=== PATIENT | male | born 1950 | race Caucasian/White ===

== ENCOUNTER 2016-07-01 16:04 | Emergency (ER) | payer BC, MEDICARE ==
[2016-07-01] MEDS ORDERED: METHOCARBAMOL 500 MG TAB PO STA (16:53)
[2016-07-01] MEDS ORDERED: SODIUM CHLORIDE 0.9% 1,000 ML IV STA (16:55)
[2016-07-01 17:28] LABS: Basophils # (A) 0.1 k/uL (0-0.2); Basophils % (A) 1 %; CH 32.6; CHCM 33.2; Eosinophils # (A) 0.3 k/uL (0-0.7); Eosinophils % (A) 3 %; HCT 34.7 % (39.0-53.0); HDW 2.31; HGB 11.2 gm/dL (13.0-17.5); Luc # (Auto) 0.14; Luc % (Auto) 1; Lymphocytes # (A) 2.8 k/uL (1.0-4.8); Lymphocytes % (A) 27 %; MCH 31.9 pg (25.0-35.0); MCHC 32.2 g/dL (31.0-37.0); MCV 98.8 fL (80.0-100.0); Macrocytosis Slight; Mean Platelet Volume 6.7; Monocytes # (A) 0.4 k/uL (0-1.0); Monocytes % (A) 4 %; Neutrophils # (A) 6.6 k/uL (1.3-7.7); Neutrophils % (A) 65 %; RBC 3.51 m/uL (4.30-5.90); RDW 14.4 % (11.5-15.5); WBC 10.3 k/uL (3.8-10.6); WBC (Perox) 10.65
[2016-07-01 17:38] LABS: Appearance,Urine Clear (Clear); Bilirubin,Urine Negative (Negative); Glucose,Urine (UA) 4+ (Negative); Ketones,Urine Negative (Negative); Leukocyte Esterase,Urine Negative (Negative); Nitrite,Urine Negative (Negative); Protein,Urine Negative (Negative); Specific Gravity,Urine 1.016 (1.001-1.035); UA Billing (MACRO vs. MICRO) CHEM; Urobilinogen,Urine <2.0 mg/dL (<2.0)
--- NOTE | 2016-07-01 17:43 | XR ---
EXAMINATION TYPE: XR lumbar spine 3V DATE OF EXAM: 07/01/2016 5:30 PM COMPARISON: MRI September 30, 2012 HISTORY: Low back pain TECHNIQUE: AP coned view and 2 lateral coned views FINDINGS: There is unchanged anterior listhesis of L5 upon S1, with markedly advanced degenerative fa cet changes at the L4-5 and L5-S1. New since the time of the MRI is moderate compression of the superior endplate of L2. Bones and joints and soft tissues are otherwise unremarkable as seen. IMPRESSION: Moderate compression of the L2 superior endplate, age indeterminate other than new since the September 30, 2012 MRI.
[2016-07-01 17:52] LABS: Anion Gap 7 mmol/L; Blood Urea Nitrogen 23 mg/dL (9-20); Calcium 9.4 mg/dL (8.4-10.2); Carbon Dioxide 27 mmol/L (22-30); Chloride 99 mmol/L (98-107); Glucose 391 mg/dL (74-99); Magnesium 1.9 mg/dL (1.6-2.3); Non-African American GFR(MDRD) >60 (>60 ml/min/1.73 sqM); Potassium 4.7 mmol/L (3.5-5.1); Sodium 133 mmol/L (137-145)
[2016-07-01 18:38] LABS: Glucose,Whole Blood 345 mg/dL (75-99)
--- NOTE | 2016-07-01 19:30 | ED ---
General Adult HPI - General Chief complaint: Recheck/Abnormal Lab/Rx Stated complaint: HYPERGLYCEMIA Time Seen by Provider: 07/01/16 16:19 Source: EMS Mode of arrival: EMS Limitations: no limitations - History of Present Illness Initial comments: The patient is a 66-year-old male since ED with a chief complaint of fatigue and hyperglycemia. Patient also complains of chronic back pain. Patient states that he was recently admitted at [facility]. He was discharged approximately 4 days ago. Patient states that he was noted to have elevated glucose while at [facility]. They started him on insulin, which he states he's been taking as directed. Patient notes that he has had elevated blood glucose of 350 while at home. States he has been feeling more fatigued than usual over the course of the past 2 weeks. Patient notes that he has appointment with his PCP tomorrow morning. Patient has been taking pain medication at home for his back pain. States that he has not had any recent changes in his back pain. He has not had any recent traumatic injuries to his back. 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 Patient denies any recent changes to his medications. He denies any chest pain or shortness of breath. Patient denies any fevers or chills. Denies any dysuria or hematuria. - Related Data Home Medications Medication Instructions Recorded Confirmed Aspirin 325 mg PO DAILY 07/19/13 10/14/15 Glimepiride [Amaryl] 4 mg PO BID 07/19/13 10/14/15 Omeprazole [PriLOSEC] 20 mg PO AC-BRKFST PRN 07/19/13 10/14/15 sitaGLIPtin PHOS/metFORMIN HCL 1 tab PO BID 05/27/15 10/14/15 [Janumet 50-500 mg Tablet] Previous Rx's Medication Instructions Recorded Topiramate [Topamax] 25 mg PO BID #60 cap 10/14/15 oxyCODONE HCL 30 mg PO Q6HR PRN #120 tablet 10/14/15 Allergies Allergy/AdvReac Type Severity Reaction Status Date / Time No Known Allergies Allergy Verified 07/01/16 16:24 Review of Systems ROS Statement: Those systems with pertinent positive or pertinent negative responses have been documented in the HPI. ROS Other: All systems not noted in ROS Statement are negative. Constitutional: Denies: fever, chills, weakness Eyes: Denies: vision change ENT: Denies: ear pain, throat pain, dental pain Respiratory: Denies: cough, dyspnea, wheezes Cardiovascular: Denies: chest pain, palpitations Endocrine: Reports: fatigue Gastrointestinal: Denies: abdominal pain, nausea, vomiting, diarrhea, constipation Genitourinary: Denies: urgency, dysuria, frequency, hematuria Musculoskeletal: Reports: back pain (lumbar) Skin: Denies: rash, lesions, change in color Neurological: Denies: headache, weakness Psychiatric: Denies: anxiety, depression Past Medical History Past Medical History: Coronary Artery Disease (CAD), Diabetes Mellitus, Eye Disorder, GERD/Reflux, Hypertension, Musculoskeletal Disorder, Osteoarthritis ( OA) Additional Past Medical History / Comment(s): peripheral neuropathy,. spondilolithesis. disabled-moves slowly History of Any Multi-Drug Resistant Organisms: None Reported Past Surgical History: Heart Catheterization With Stent, Orthopedic Surgery, Tonsillectomy Additional Past Surgical History / Comment(s): lt knee surg. lt knee scope. [facility] PROCED[facility] Past Anesthesia/Blood Transfusion Reactions: No Reported Reaction Date of Last Stent Placement:: 2008 Past Psychological History: Anxiety, Depression Smoking Status: Never smoker Past Alcohol Use History: None Reported Past Drug Use History: None Reported - Past Family History Mother Family Medical History: Unable to Obtain General Exam Limitations: no limitations General appearance: alert, in no apparent distress Head exam: Present: atraumatic, normocephalic Eye exam: Present: normal appearance, PERRL, EOMI. Absent: scleral icterus, conjunctival injection Pupils: Present: normal accommodation, other (pupils are 3mm, equal and reactive. The patient wears glasses) ENT exam: Present: normal exam, mucous membranes dry Neck exam: Present: normal inspection Respiratory exam: Present: normal lung sounds bilaterally. Absent: respiratory distress, wheezes, rales, rhonchi, stridor Cardiovascular Exam: Present: regular rate, normal rhythm, normal heart sounds. Absent: systolic murmur, diastolic murmur GI/Abdominal exam: Present: soft. Absent: distended, tenderness, guarding, rebound, rigid Extremities exam: Present: normal inspection, full ROM. Absent: tenderness Back exam: Present: normal inspection, tenderness (tenderness to palpation in the lumbar region bilaterally. There is no tenderness to palpation of the spinous processes in the lumbar region. No step-offs) Neurological exam: Present: alert, oriented X3 Psychiatric exam: Present: normal affect, normal mood Skin exam: Present: warm, dry, intact Course Vital Signs 07/01/16 07/01/16 07/01/16 16:15 17:14 18:35 Temperature 100.1 F H 97.2 F L 98.0 F Pulse Rate 97 85 76 Respiratory 18 16 16 Rate Blood Pressure 119/69 106/66 102/68 O2 Sat by Pulse 97 96 96 Oximetry 07/01/16 19:54 Temperature 98.3 F Pulse Rate 88 Respiratory 20 Rate Blood Pressure 132/56 O2 Sat by Pulse 99 Oximetry EKG Findings - EKG Comments: EKG Findings:: EKG demonstrates NSR. There are no concerning ST-T changes. The DC and QRS intervals are within normal limits. Medical Decision Making - Medical Decision Making Patient is a 66-year-old male who presents ED with a chief complaint fatigue and hyperglycemia. Patient states that his symptoms of the present over the course the past 2 weeks. Patient denies any fever or chills. Denies any chest pain or shortness of breath. Patient denies any dysuria or hematuria. Patient does complain of lower back pain. Patient has a history of chronic lower back pain status post participation in college football. Will provide patient with oxycodone for pain relief. Will bolus patient with IV fluids. Check EKG, Troponin, CBC, BMP, Mag. 7:30 PM Patient updated of overall findings. Glucose noted to be 350 but patient has follow-up appointment with PCP tomorrow morning. Encouraged patient that he may need to have adjustment in insulin dosing. No evidence of DKA today. Patient has no evidence of ketones in his urine. In addition, no evidence of abnormal bicarb or anion gap. Patient will be discharged home at this point in time. He is comfortable with this plan. The patient did have evidence of compression fracture on his lumbar spine x-ray. According the patient, this is old and has been present for several years. Patient has pain medications that he can take at home for pain relief. I have answered all of his questions to his satisfaction. - Lab Data Result diagrams: 07/01/16 17:11 07/01/16 17:11 Lab Results 07/01/16 07/01/16 07/01/16 Range/Units 16:14 17:11 17:11 WBC (3.8-10.6) k/uL RBC (4.30-5.90) m/uL Hgb (13.0-17.5) gm/dL Hct (39.0-53.0) % MCV (80.0-100.0) fL MCH (25.0-35.0) pg MCHC (31.0-37.0) g/dL RDW (11.5-15.5) % Plt Count (150-450) k/uL Neutrophils % % Lymphocytes % % Monocytes % % Eosinophils % % Basophils % % Neutrophils # (1.3-7.7) k/uL Lymphocytes # (1.0-4.8) k/uL Monocytes # (0-1.0) k/uL Eosinophils # (0-0.7) k/uL Basophils # (0-0.2) k/uL Macrocytosis Sodium (137-145) mmol/L Potassium (3.5-5.1) mmol/L Chloride (98-107) mmol/L Carbon Dioxide (22-30) mmol/L Anion Gap mmol/L BUN (9-20) mg/dL Creatinine (0.66-1.25) mg/dL Est GFR (MDRD) Af Amer (>60 ml/min/1.73 sqM) Est GFR (MDRD) Non-Af (>60 ml/min/1.73 sqM) Glucose (74-99) mg/dL POC Glucose (mg/dL) 433 H (75-99) mg/dL POC Glu Pediatric Oncology Nurse ID Trista Cruz Plasma Lactic Acid Kareem 1.4 (0.7-2.0) mmol/L Calcium (8.4-10.2) mg/dL Magnesium (1.6-2.3) mg/dL Troponin I <0.012 (0.000-0.034) ng/mL Urine Color Urine Appearance (Clear) Urine pH (5.0-8.0) Ur Specific [place] (1.001-1.035) Urine Protein (Negative) Urine Glucose (UA) (Negative) Urine Ketones (Negative) Urine Blood (Negative) Urine Nitrite (Negative) Urine Bilirubin (Negative) Urine Urobilinogen (<2.0) mg/dL Ur Leukocyte Esterase (Negative) Influenza Type A RNA (Not Detectd) Influenza Type B (PCR) (Not Detectd) 07/01/16 07/01/16 07/01/16 Range/Units 17:11 17:11 17:11 WBC 10.3 (3.8-10.6) k/uL RBC 3.51 L (4.30-5.90) m/uL Hgb 11.2 L (13.0-17.5) gm/dL Hct 34.7 L (39.0-53.0) % MCV 98.8 (80.0-100.0) fL MCH 31.9 (25.0-35.0) pg MCHC 32.2 (31.0-37.0) g/dL RDW 14.4 (11.5-15.5) % Plt Count 306 (150-450) k/uL Neutrophils % 65 % Lymphocytes % 27 % Monocytes % 4 % Eosinophils % 3 % Basophils % 1 % Neutrophils # 6.6 (1.3-7.7) k/uL Lymphocytes # 2.8 (1.0-4.8) k/uL Monocytes # 0.4 (0-1.0) k/uL Eosinophils # 0.3 (0-0.7) k/uL Basophils # 0.1 (0-0.2) k/uL Macrocytosis Slight Sodium 133 L (137-145) mmol/L Potassium 4.7 (3.5-5.1) mmol/L Chloride 99 (98-107) mmol/L Carbon Dioxide 27 (22-30) mmol/L Anion Gap 7 mmol/L BUN 23 H (9-20) mg/dL Creatinine 0.70 (0.66-1.25) mg/dL Est GFR (MDRD) Af Amer >60 (>60 ml/min/1.73 sqM) Est GFR (MDRD) Non-Af >60 (>60 ml/min/1.73 sqM) Glucose 391 H (74-99) mg/dL POC Glucose (mg/dL) (75-99) mg/dL POC Glu Pediatric Oncology Nurse ID Plasma Lactic Acid Kareem (0.7-2.0) mmol/L Calcium 9.4 (8.4-10.2) mg/dL Magnesium 1.9 (1.6-2.3) mg/dL Troponin I (0.000-0.034) ng/mL Urine Color Urine Appearance (Clear) Urine pH (5.0-8.0) Ur Specific [place] (1.001-1.035) Urine Protein (Negative) Urine Glucose (UA) (Negative) Urine Ketones (Negative) Urine Blood (Negative) Urine Nitrite (Negative) Urine Bilirubin (Negative) Urine Urobilinogen (<2.0) mg/dL Ur Leukocyte Esterase (Negative) Influenza Type A RNA Not Detected (Not Detectd) Influenza Type B (PCR) Not Detected (Not Detectd) 07/01/16 07/01/16 Range/Units 17:11 18:33 WBC (3.8-10.6) k/uL RBC (4.30-5.90) m/uL Hgb (13.0-17.5) gm/dL Hct (39.0-53.0) % MCV (80.0-100.0) fL MCH (25.0-35.0) pg MCHC (31.0-37.0) g/dL RDW (11.5-15.5) % Plt Count (150-450) k/uL Neutrophils % % Lymphocytes % % Monocytes % % Eosinophils % % Basophils % % Neutrophils # (1.3-7.7) k/uL Lymphocytes # (1.0-4.8) k/uL Monocytes # (0-1.0) k/uL Eosinophils # (0-0.7) k/uL Basophils # (0-0.2) k/uL Macrocytosis Sodium (137-145) mmol/L Potassium (3.5-5.1) mmol/L Chloride (98-107) mmol/L Carbon Dioxide (22-30) mmol/L Anion Gap mmol/L BUN (9-20) mg/dL Creatinine (0.66-1.25) mg/dL Est GFR (MDRD) Af Amer (>60 ml/min/1.73 sqM) Est GFR (MDRD) Non-Af (>60 ml/min/1.73 sqM) Glucose (74-99) mg/dL POC Glucose (mg/dL) 345 H (75-99) mg/dL POC Glu Pediatric Oncology Nurse ID [place], Maria Del Rosario Plasma Lactic Acid Kareem (0.7-2.0) mmol/L Calcium (8.4-10.2) mg/dL Magnesium (1.6-2.3) mg/dL Troponin I (0.000-0.034) ng/mL Urine Color Light Yellow Urine Appearance Clear (Clear) Urine pH 7.0 (5.0-8.0) Ur Specific [place] 1.016 (1.001-1.035) Urine Protein Negative (Negative) Urine Glucose (UA) 4+ H (Negative) Urine Ketones Negative (Negative) Urine Blood Negative (Negative) Urine Nitrite Negative (Negative) Urine Bilirubin Negative (Negative) Urine Urobilinogen <2.0 (<2.0) mg/dL Ur Leukocyte Esterase Negative (Negative) Influenza Type A RNA (Not Detectd) Influenza Type B (PCR) (Not Detectd) Disposition Clinical Impression: Fatigue, Hyperglycemia, Type 2 diabetes mellitus Disposition: HOME SELF-CARE Condition: Good Instructions: Type 2 Diabetes in Adults (ED) Additional Instructions: Please follow up with your PCP for your appointment tomorrow. They can help to start you on insulin if they deem that this is necessary to control your blood glucose levels. Referrals: Louis Moreno MD [Primary Care Provider] - 1-2 days (Please follow up with Dr. Moreno tomorrow regarding your visit to the ED today. He can help to adjust your medications to help treat your hyperglycemia) Time of Disposition: 19:30
[2016-07-01 19:55] VITALS: BP 132/56; PULSE 88; RESP 20; TEMP 98.3
[2016-07-01 22:18] LABS: Glucose,Whole Blood 433 mg/dL (75-99)
== END 2016-07-01 19:55 | disposition home or self-care (01) ==
LOC: EC 16:04 → EEVIPCON 16:04 → EC 19:55
DX: E11.65 Type 2 diabetes mellitus with hyperglycemia (principal); R53.83 Other fatigue; M54.9 Dorsalgia, unspecified; G89.29 Other chronic pain; I25.10 Atherosclerotic heart disease of native coronary artery without angina pectoris; I10 Essential (primary) hypertension; Z79.82 Long term (current) use of aspirin; Z79.84 Long term (current) use of oral hypoglycemic drugs
CPT/HCPCS: 36415; 72100; 80048; 81003; 83605; 83735; 84484; 85025; 87040; 87086; 87502; 93005; 96360; 96361; 99285

== ENCOUNTER → 2017-03-16 | Outpatient (CLI) | payer MEDICARE | END | disposition home or self-care (01) | LOC: LABWHC1 09:06 | PROVIDERS: ATTEND Internal Medicine Endocrinology, Diabetes & Metabolism | DX: E11.65 Type 2 diabetes mellitus with hyperglycemia (principal) | CPT/HCPCS: 36415; 82947; 83519; 84681 ==

== ENCOUNTER → 2017-06-10 | Outpatient (CLI) | payer MEDICARE ==
[2017-06-10 11:25] LABS: ALT 18 U/L (21-72); AST 19 U/L (17-59); Albumin 3.9 g/dL (3.5-5.0); Alkaline Phosphatase 70 U/L (38-126); Anion Gap 12 mmol/L; Blood Urea Nitrogen 12 mg/dL (9-20); Calcium 9.5 mg/dL (8.4-10.2); Carbon Dioxide 24 mmol/L (22-30); Chloride 104 mmol/L (98-107); Cholesterol 206 mg/dL (<200); Glucose 112 mg/dL (74-99); HDL Cholesterol 40 mg/dL (40-60); LDL Cholesterol,Calculated 142 mg/dL (0-99); Potassium 4.1 mmol/L (3.5-5.1); Sodium 140 mmol/L (137-145); Total Bilirubin 0.5 mg/dL (0.2-1.3); Total Protein 6.6 g/dL (6.3-8.2); Triglycerides 122 mg/dL (<150)
[2017-06-10 17:29] LABS: Hemoglobin A1C 9.1 % (4.0-6.0)
== END ==
LOC: LABWHC1 10:34
PROVIDERS: ATTEND Internal Medicine Endocrinology, Diabetes & Metabolism
DX: E11.65 Type 2 diabetes mellitus with hyperglycemia (principal)
CPT/HCPCS: 36415; 80053; 80061; 82043; 82533; 82570; 82607; 83036; 84443

== ENCOUNTER → 2017-07-05 | Outpatient (CLI) | payer MEDICARE ==
[2017-07-05 20:21] LABS: Hemoglobin A1C 8.6 % (4.0-6.0)
--- NOTE | 2017-07-05 23:13 | MR ---
EXAMINATION TYPE: MR lumbar spine wo con DATE OF EXAM: 07/05/2017 COMPARISON: September 30, 2012 HISTORY: LBP, radiates down rt leg x 1 year TECHNIQUE: Multiplanar, multisequence images of the lumbar spine were acquired. There is bilateral L5 spondylolysis. There is a mild first-degree L5-S1 spondylolisthesis. There is n arrowing of disc spaces throughout the lumbar spine and more at L5-S1. There is slight anterior wedgi ng of L2 vertebra. There is depression of the superior endplate. There is mild posterior disc herniat ion at L1-L3 4 L5-S1. There is lateral recess stenosis and mild spinal stenosis at L4-5 due to facet arthropathy. I see no significant stenosis in the remainder of the lumbar spine. There is no paraspin al mass. I see no focal bone destruction. The visualized sacroiliac joints appear normal. IMPRESSION: Spondylolysis of L5 with first-degree L5-S1 spondylolisthesis. This is unchanged. There is slight inc rease in the posterior L5-S1 disc herniation compared to old exam. There is L4-5 spinal stenosis that appears less severe than old exam. There is a new mild compression fracture L2 compared to old exam. The posterior disc herniation at L4 -5 has diminished somewhat compared to old exam and consistent with desiccation.
== END | disposition home or self-care (01) ==
LOC: RADMRIMAIN 15:05 → EEVIPCON 16:45
PROVIDERS: ATTEND Family Medicine
DX: S32.029A Unspecified fracture of second lumbar vertebra, initial encounter for closed fracture (principal); M48.061 Spinal stenosis, lumbar region without neurogenic claudication; M43.17 Spondylolisthesis, lumbosacral region; M51.27 Other intervertebral disc displacement, lumbosacral region; E78.5 Hyperlipidemia, unspecified; E11.65 Type 2 diabetes mellitus with hyperglycemia; I10 Essential (primary) hypertension
CPT/HCPCS: 36415; 72148; 82306; 83036

== ENCOUNTER 2018-08-13 14:47 | Emergency (ER) | payer MEDICARE ==
[2018-08-13 15:03] VITALS: BP 102/66; PULSE 86; RESP 18; TEMP 98.7
--- NOTE | 2018-08-13 15:50 | ED ---
General Adult HPI - General Chief complaint: Recheck/Abnormal Lab/Rx Stated complaint: Med Refill Time Seen by Provider: 08/13/18 15:36 Source: patient, RN notes reviewed Mode of arrival: ambulatory Limitations: no limitations - History of Present Illness Initial comments: This is a 68-year-old male presents emergency Department with chief complaint of needing insulin. Patient states that he normally takes Lantus 40 units in the morning and he takes Humalog 5 units 3 times a day. Patient states that he ran out yesterday his blood sugar is mildly elevated today but denies any chest pain, shortness breath, fever, chills, nausea vomiting diarrhea constipation. - Related Data Home Medications Medication Instructions Recorded Confirmed Aspirin 325 mg PO DAILY 07/19/13 10/14/15 Glimepiride [Amaryl] 4 mg PO BID 07/19/13 10/14/15 Omeprazole [PriLOSEC] 20 mg PO AC-BRKFST PRN 07/19/13 10/14/15 sitaGLIPtin PHOS/metFORMIN HCL 1 tab PO BID 05/27/15 10/14/15 [Janumet 50-500 mg Tablet] Previous Rx's Medication Instructions Recorded Topiramate [Topamax] 25 mg PO BID #60 cap 10/14/15 oxyCODONE HCL [oxyCODONE HCL (IR)] 30 mg PO Q6HR PRN #120 tablet 10/14/15 Insulin Glargine,Hum.rec.anlog 40 unit SQ DAILY #15 ml 08/13/18 [Lantus Solostar] Insulin Lispro [humaLOG Kwikpen] 5 unit SQ AC-TID #5 insuln.pen 08/13/18 Allergies Allergy/AdvReac Type Severity Reaction Status Date / Time No Known Allergies Allergy Verified 08/13/18 15:03 Review of Systems ROS Statement: Those systems with pertinent positive or pertinent negative responses have been documented in the HPI. ROS Other: All systems not noted in ROS Statement are negative. Past Medical History Past Medical History: Coronary Artery Disease (CAD), Diabetes Mellitus, Eye Disorder, GERD/Reflux, Hypertension, Musculoskeletal Disorder, Osteoarthritis (OA) Additional Past Medical History / Comment(s): peripheral neuropathy,. spondilo lithesis. disabled-moves slowly History of Any Multi-Drug Resistant Organisms: None Reported Past Surgical History: Heart Catheterization With Stent, Orthopedic Surgery, Tonsillectomy Additional Past Surgical History / Comment(s): lt knee surg. lt knee scope. [facility] PROCED[facility] Past Anesthesia/Blood Transfusion Reactions: No Reported Reaction Date of Last Stent Placement:: 2008 Past Psychological History: Anxiety, Depression Smoking Status: Never smoker Past Alcohol Use History: None Reported Past Drug Use History: None Reported - Past Family History Mother Family Medical History: Unable to Obtain General Exam Limitations: no limitations General appearance: alert, in no apparent distress Head exam: Present: atraumatic, normocephalic, normal inspection Neck exam: Present: normal inspection. Absent: tenderness, meningismus, lymphadenopathy Respiratory exam: Present: normal lung sounds bilaterally. Absent: respiratory distress, wheezes, rales, rhonchi, stridor Cardiovascular Exam: Present: regular rate, normal rhythm, normal heart sounds. Absent: systolic murmur, diastolic murmur, rubs, gallop, clicks Neurological exam: Present: alert, oriented X3, CN II-XII intact, reflexes normal. Absent: motor sensory deficit Skin exam: Present: warm, dry, intact, normal color. Absent: rash Course Vital Signs 08/13/18 15:01 Temperature 98.7 F Pulse Rate 86 Respiratory 18 Rate Blood Pressure 102/66 O2 Sat by Pulse 99 Oximetry Medical Decision Making - Medical Decision Making 68-year-old male presented for medication refill. Patient Accu-Chek was performed. Patient was given insulin. Patient was given prescriptions to his pharmacy. Disposition Clinical Impression: Encounter for medication refill, Diabetes Disposition: HOME SELF-CARE Condition: Stable Instructions (If sedation given, give patient instructions): Type 2 Diabetes in the Older Adult (ED) Additional Instructions: Please return to the Emergency Department if symptoms worsen or any other concerns. Prescriptions: Insulin Lispro [humaLOG Kwikpen] 5 unit SQ AC-TID #5 insuln.pen Insulin Glargine,Hum.rec.anlog [Lantus Solostar] 40 unit SQ DAILY #15 ml Is patient prescribed a controlled substance at d/c from ED?: No Referrals: Florence Aguirre MD [Primary Care Provider] - 1-2 days
[2018-08-13] MEDS ORDERED: INSULIN ASPART (NovoLOG) 100 UNIT/ML VIAL SQ ONE (16:02)
[2018-08-13 16:22] LABS: Glucose,Whole Blood 278 mg/dL (75-99)
== END 2018-08-13 16:26 | disposition home or self-care (01) ==
LOC: EC 14:47
DX: Z76.0 Encounter for issue of repeat prescription (principal); E11.40 Type 2 diabetes mellitus with diabetic neuropathy, unspecified; I25.10 Atherosclerotic heart disease of native coronary artery without angina pectoris; K21.9 Gastro-esophageal reflux disease without esophagitis; I10 Essential (primary) hypertension; Z79.82 Long term (current) use of aspirin; Z79.84 Long term (current) use of oral hypoglycemic drugs; Z79.899 Other long term (current) drug therapy; Z95.5 Presence of coronary angioplasty implant and graft
CPT/HCPCS: 36415; 99281

== ENCOUNTER 2020-05-22 19:35 | Inpatient (IN) | payer MEDICARE ==
[2020-05-22] MEDS ORDERED: cefTRIAXone IN SWFI 1,000 MG/10 ML SYRINGE IVP STA (21:09)
[2020-05-22] MEDS ORDERED: VANCOMYCIN IV PER PHARMACY 1 EACH MISC MISCELLANE PRN (21:09)
[2020-05-22] MEDS ORDERED: SODIUM CHLORIDE 0.9% 1,000 ML IV ONE (21:21)
--- NOTE | 2020-05-22 21:36 | ED ---
General Adult HPI - General Chief complaint: Skin/Abscess/Foreign Body Stated complaint: left foot infection Time Seen by Provider: 05/22/20 20:57 Source: patient, EMS, RN notes reviewed, old records reviewed Mode of arrival: wheelchair Limitations: no limitations - History of Present Illness Initial comments: 70-year-old male presenting for evaluation of pain and swelling in the left foot. Patient denies injury. He reports significant pain. Denies fever. He is a diabetic. He states he is a nonsmoker. He denies any drainage or skin breakdown. He states that his foot has felt warm and the redness has begun to spread into his leg. - Related Data Home Medications Medication Instructions Recorded Confirmed Aspirin 325 mg PO DAILY 07/19/13 10/14/15 Glimepiride [Amaryl] 4 mg PO BID 07/19/13 10/14/15 Omeprazole [PriLOSEC] 20 mg PO AC-BRKFST PRN 07/19/13 10/14/15 sitaGLIPtin PHOS/metFORMIN HCL 1 tab PO BID 05/27/15 10/14/15 [Janumet 50-500 mg Tablet] Previous Rx's Medication Instructions Recorded Topiramate [Topamax] 25 mg PO BID #60 cap 10/14/15 oxyCODONE HCL [oxyCODONE HCL (IR)] 30 mg PO Q6HR PRN #120 tablet 10/14/15 Insulin Glargine,Hum.rec.anlog 40 unit SQ DAILY #15 ml 08/13/18 [Lantus Solostar] Insulin Lispro [humaLOG Kwikpen] 5 unit SQ AC-TID #5 insuln.pen 08/13/18 Allergies Allergy/AdvReac Type Severity Reaction Status Date / Time No Known Allergies Allergy Verified 05/22/20 20:37 Review of Systems ROS Statement: Those systems with pertinent positive or pertinent negative responses have been documented in the HPI. ROS Other: All systems not noted in ROS Statement are negative. Past Medical History Past Medical History: Coronary Artery Disease (CAD), Diabetes Mellitus, Eye Disorder, GERD/Reflux, Hypertension, Musculoskeletal Disorder, Osteoarthritis (OA) Additional Past Medical History / Comment(s): peripheral neuropathy,. spondilolithesis. disabled-moves slowly History of Any Multi-Drug Resistant Organisms: None Reported Past Surgical History: Heart Catheterization With Stent, Orthopedic Surgery, Ton sillectomy Additional Past Surgical History / Comment(s): lt knee surg. lt knee scope. [facility] Past Anesthesia/Blood Transfusion Reactions: No Reported Reaction Date of Last Stent Placement:: 2008 Past Psychological History: Anxiety, Depression Smoking Status: Former smoker Past Alcohol Use History: None Reported Past Drug Use History: None Reported - Past Family History Mother Family Medical History: Unable to Obtain General Exam Limitations: no limitations General appearance: alert, in no apparent distress Head exam: Present: atraumatic, normocephalic Eye exam: Present: normal appearance, PERRL ENT exam: Present: normal exam Neck exam: Present: normal inspection. Absent: tenderness, meningismus Respiratory exam: Present: normal lung sounds bilaterally. Absent: respiratory distress, wheezes Cardiovascular Exam: Present: regular rate, normal rhythm GI/Abdominal exam: Present: soft. Absent: distended, tenderness, guarding, rebound Extremities exam: Present: pedal edema (Patient has erythema which is most prominent in the toes of the left foot and midfoot. There is some erythema streaking up the leg. There is soft tissue swelling. There is no crepitus. This is tender to palpation. No fluctuance, no induration. Patient has 2+ femoral pulse on the left, ), other (Doppler signals DP and PT, very faint.) Back exam: Present: normal inspection Neurological exam: Present: alert, oriented X3 Psychiatric exam: Present: normal affect, normal mood Skin exam: Present: warm, dry, intact, erythema Course Vital Signs 05/22/20 05/22/20 20:35 22:08 Temperature 98.3 F Pulse Rate 83 71 Respiratory 20 18 Rate Blood Pressure 88/52 81/50 O2 Sat by Pulse 94 L 92 L Oximetry Medical Decision Making - Medical Decision Making 70-year-old male with history diabetes presenting with 2 weeks of pain and swelling in the left foot. This is erythematous tracking into the leg. There is no fluctuation, no induration. There is generalized soft tissue swelling and erythema with discoloration of all 5 digits. No obvious skin breakdown. X-ray performed showing a foreign body between the third and fourth digits however the patient does not recall stepping on anything. Denies recent injury. Denies IV drug abuse. There is no obvious entry point for this foreign body. Laboratory studies reveal a normal CBC, CMP showing elevated blood glucose of 430, no signs of DKA, normal lactic acid. Patient started on broad-spectrum antibiotics given IV fluids and IV insulin. He has been admitted to Dr. Castillo who is aware of the patient, vascular surgery is placed on consult. - Lab Data Result diagrams: 05/22/20 21:45 05/22/20 21:45 Lab Results 05/22/20 05/22/20 05/22/20 Range/Units 21:45 21:45 21:45 WBC 10.6 (3.8-10.6) k/uL RBC 4.70 (4.30-5.90) m/uL Hgb 14.6 (13.0-17.5) gm/dL Hct 42.2 (39.0-53.0) % MCV 90.0 (80.0-100.0) fL MCH 31.2 (25.0-35.0) pg MCHC 34.6 (31.0-37.0) g/dL RDW 13.5 (11.5-15.5) % Plt Count 278 (150-450) k/uL MPV 8.7 Neutrophils % 60 % Lymphocytes % 30 % Monocytes % 4 % Eosinophils % 4 % Basophils % 1 % Neutrophils # 6.4 (1.3-7.7) k/uL Lymphocytes # 3.1 (1.0-4.8) k/uL Monocytes # 0.4 (0-1.0) k/uL Eosinophils # 0.4 (0-0.7) k/uL Basophils # 0.1 (0-0.2) k/uL Sodium 130 L (137-145) mmol/L Potassium 4.5 (3.5-5.1) mmol/L Chloride 99 (98-107) mmol/L Carbon Dioxide 21 L (22-30) mmol/L Anion Gap 10 mmol/L BUN 12 (9-20) mg/dL Creatinine 0.56 L (0.66-1.25) mg/dL Est GFR (CKD-EPI)AfAm >90 (>60 ml/min/1.73 sqM) Est GFR (CKD-EPI)NonAf >90 (>60 ml/min/1.73 sqM) Glucose 437 H (74-99) mg/dL Plasma Lactic Acid Kareem 1.6 (0.7-2.0) mmol/L Calcium 9.2 (8.4-10.2) mg/dL Magnesium 2.2 (1.6-2.3) mg/dL Total Bilirubin 0.6 (0.2-1.3) mg/dL AST 22 (17-59) U/L ALT 16 (4-49) U/L Alkaline Phosphatase 184 H (38-126) U/L Total Protein 6.4 (6.3-8.2) g/dL Albumin 3.7 (3.5-5.0) g/dL Disposition Clinical Impression: Cellulitis, PVD (peripheral vascular disease) Disposition: [facility] Condition: Stable Is patient prescribed a controlled substance at d/c from ED?: No Referrals: Evangelina Galeas MD [Primary Care Provider] - 1-2 days Decision to Admit Reason: Admit from EC Decision Date: 05/22/20 Decision Time: 22:27
[2020-05-22] MEDS ORDERED: VANCOMYCIN 2,000 MG in SODIUM CHLORIDE 0.9% 500 ML 500 ML IVPB ONE (21:45)
--- NOTE | 2020-05-22 21:46 | XR ---
Result: History: Pain. Comparison: None available. Technique: 3 views of the left foot. Findings: The bone mineralization is appropriate for age. No acute fracture or dislocation is seen. The visualized osseous structures are in anatomic alignmen t. The joint spaces are preserved. There is a 4 mm linear radiopaque foreign body overlying the sof t tissues between the third and fourth distal phalanges. No soft tissue gas or radiographic evidence for osteomyelitis. Impression: No acute osseous abnormality. 4 mm radiopaque foreign body between the third and fourth toes and suggestive of retained syringe nee dle.
[2020-05-22 22:11] LABS: Basophils # (A) 0.1 k/uL (0-0.2); Basophils % (A) 1 %; Eosinophils # (A) 0.4 k/uL (0-0.7); Eosinophils % (A) 4 %; HCT 42.2 % (39.0-53.0); HGB 14.6 gm/dL (13.0-17.5); Lymphocytes # (A) 3.1 k/uL (1.0-4.8); Lymphocytes % (A) 30 %; MCH 31.2 pg (25.0-35.0); MCHC 34.6 g/dL (31.0-37.0); Mean Platelet Volume 8.7; Monocytes # (A) 0.4 k/uL (0-1.0); Monocytes % (A) 4 %; Neutrophils # (A) 6.4 k/uL (1.3-7.7); Neutrophils % (A) 60 %; Platelet Count 278 k/uL (150-450); RDW 13.5 % (11.5-15.5); WBC 10.6 k/uL (3.8-10.6)
[2020-05-22 22:21] LABS: ALT 16 U/L (4-49); AST 22 U/L (17-59); African American GFR (CKD) >90 (>60 ml/min/1.73 sqM); Albumin 3.7 g/dL (3.5-5.0); Alkaline Phosphatase 184 U/L (38-126); Anion Gap 10 mmol/L; Blood Urea Nitrogen 12 mg/dL (9-20); Calcium 9.2 mg/dL (8.4-10.2); Carbon Dioxide 21 mmol/L (22-30); Chloride 99 mmol/L (98-107); Glucose 437 mg/dL (74-99); Magnesium 2.2 mg/dL (1.6-2.3); Non-African American GFR(CKD) >90 (>60 ml/min/1.73 sqM); Potassium 4.5 mmol/L (3.5-5.1); Sodium 130 mmol/L (137-145); Total Bilirubin 0.6 mg/dL (0.2-1.3); Total Protein 6.4 g/dL (6.3-8.2)
[2020-05-22] MEDS ORDERED: INSULIN REGULAR 100 UNIT/ML VIAL IV ONE (22:22)
[2020-05-22] MEDS ORDERED: NALOXONE 0.4 MG/ML 1 ML VIAL IV PRN (22:23)
[2020-05-22] MEDS ORDERED: HYDROmorphone 0.5 MG/0.5 ML SYRINGE IVP PRN (22:23)
[2020-05-22 22:35] LABS: INR 0.9 (<1.2); Partial Thromboplastin Time 21.9 sec (22.0-30.0); Prothrombin Time 9.7 sec (9.0-12.0)
[2020-05-22 23:32] LABS: Glucose,Whole Blood 551 mg/dL (75-99)
[2020-05-22] MEDS: ACETAMINOPHEN TAB 325 MG TAB PO PRN (23:39)
[2020-05-22] MEDS: SODIUM CHLORIDE 0.9% 1,000 ML IV SCH ×2 (23:40→23:44)
[2020-05-23 02:04] LABS: Glucose,Whole Blood 544 mg/dL (75-99)
[2020-05-23] MEDS ORDERED: INSULIN REGULAR BOLUS (FROM DRIP BAG) IV ONE (02:11)
[2020-05-23 02:49] LABS: Glucose,Whole Blood 419 mg/dL (75-99)
[2020-05-23] MEDS: INSULIN REGULAR 100 UNIT in SODIUM CHLORIDE 0.9% 100 ML IV SCH ×2 (02:57→16:18)
[2020-05-23 03:32] LABS: Glucose,Whole Blood 340 mg/dL (75-99)
[2020-05-23 04:02] LABS: Glucose,Whole Blood 299 mg/dL (75-99)
[2020-05-23 04:36] LABS: Glucose,Whole Blood 249 mg/dL (75-99)
[2020-05-23 05:32] LABS: Glucose,Whole Blood 284 mg/dL (75-99)
[2020-05-23] MEDS: VANCOMYCIN 1,500 MG in SODIUM CHLORIDE 0.9% 250 ML IVPB SCH ×3 (05:37→22:30)
[2020-05-23] MEDS: ACETAMINOPHEN TAB 325 MG TAB PO PRN (06:00)
[2020-05-23 06:09] LABS: Glucose,Whole Blood 161 mg/dL (75-99)
[2020-05-23 07:23] LABS: Glucose,Whole Blood 122 mg/dL (75-99)
[2020-05-23 08:55] LABS: Glucose,Whole Blood 174 mg/dL (75-99)
--- NOTE | 2020-05-23 09:05 | P.GSCN ---
History of Present Illness Consult date: 05/23/20 Reason for Consult: Cellulitis, history of peripheral vascular disease History of present illness: This is a pleasant 70-year-old male patient who presented to the emergency department yesterday with complaints of pain and swelling in his left foot. He does not recall any injury to the foot. He denies any fever or chills. His past medical history includes insulin dependent diabetes, peripheral neuropathy, coronary artery disease and hypertension. Upon evaluation in the emergency department an x-ray of the left foot was obtained which showed no acute osseous abnormality. There is a 4 mm radiopaque foreign body between the third and fourth toes and suggestive of retained syringe needle. The patient states the pain and redness began approximately 2 days ago. He states he does not recall stepping on anything. He also states he has pain in his left calf that started approximately 2 months ago. He states that it hurts more when walking. He denies any previous history of peripheral vascular or peripheral arterial disease. He does state that his neuropathy is worse on his right foot than left. Eyes any shortness of breath, chest pain, or abdominal pain. Denies any nausea or vomiting. States he has pain in his lower extremities with walking and is to rest 20-30 minutes before proceeding. Review of Systems A 14 point review systems was completed all pertinent positives and negatives as stated in the HPI Past Medical History Past Medical History: Coronary Artery Disease (CAD), Diabetes Mellitus, Eye Disorder, GERD/Reflux, Hypertension, Musculoskeletal Disorder, Osteoarthritis (OA) Additional Past Medical History / Comment(s): peripheral neuropathy,. spondilolithesis. disabled-moves slowly History of Any Multi-Drug Resistant Organisms: None Reported Past Surgical History: Heart Catheterization With Stent, Orthopedic Surgery, Tonsillectomy Additional Past Surgical History / Comment(s): lt knee surg. lt knee scope. [facility] PROCEDURES Past Anesthesia/Blood Transfusion Reactions: No Reported Reaction Date of Last Stent Placement:: 2008 Past Psychological History: Anxiety, Depression Smoking Status: Former smoker Past Alcohol Use History: None Reported Past Drug Use History: None Reported - Past Family History Mother Family Medical History: Unable to Obtain Medications and Allergies Home Medications Medication Instructions Recorded Confirmed Type Enalapril [Vasotec] 10 mg PO HS 05/22/20 05/22/20 History Insulin Glargine,Hum.rec.anlog 40 unit SQ BID 05/22/20 05/22/20 History [Lantus Solostar] Insulin Lispro [humaLOG Kwikpen] 6 unit SQ AC-TID 05/22/20 05/22/20 History Allergies Allergy/AdvReac Type Severity Reaction Status Date / Time No Known Allergies Allergy Verified 05/22/20 22:40 Surgical - Exam Vital Signs Temp Pulse Resp BP Pulse Ox 98.3 F 83 20 88/52 94 L 05/22/20 20:35 05/22/20 20:35 05/22/20 20:35 05/22/20 20:35 05/22/20 20:35 General appearance: The patient is alert, oriented, in no acute distress. HET: Head is normocephalic and atraumatic. Neck: Supple without lymphadenopathy. Trachea midline. Heart: S1 S2. Regular rate and rhythm. Lungs: No crackles or wheezes are heard. Abdomen: Soft, nontender, nondistended. Extremities: Palpable bilateral femoral pulses. Unable to palpate bilateral gluteal, posterior tibialis or dorsalis pedis pulses. Bilateral popliteal with positive Doppler signal, unable to obtain Doppler signal for dorsalis pedis or posterior tibialis bilaterally. Left calf tender to palpation. Lower extrem ities warm to touch. Left dorsal aspect of foot with erythema down to the toes. Patient has multiple views of cracked skin in his heel left foot. Toes do feel cool to the touch. He is able to move bilateral lower extremities, although he complaints of pain to the left toes with movement. Neurological: No focal deficits. Strength and sensation are grossly intact. Results - Labs 05/22/20 21:45 05/23/20 08:07 Abnormal Lab Results - Last 24 Hours (Table) 05/22/20 05/22/20 05/22/20 Range/Units 21:45 21:45 23:28 APTT 21.9 L (22.0-30.0) sec Sodium 130 L (137-145) mmol/L Carbon Dioxide 21 L (22-30) mmol/L Creatinine 0.56 L (0.66-1.25) mg/dL Glucose 437 H (74-99) mg/dL POC Glucose (mg/dL) 551 H (75-99) mg/dL Alkaline Phosphatase 184 H (38-126) U/L 05/23/20 05/23/20 05/23/20 Range/Units 02:02 02:48 03:31 APTT (22.0-30.0) sec Sodium (137-145) mmol/L Carbon Dioxide (22-30) mmol/L Creatinine (0.66-1.25) mg/dL Glucose (74-99) mg/dL POC Glucose (mg/dL) 544 H 419 H 340 H (75-99) mg/dL Alkaline Phosphatase (38-126) U/L 05/23/20 05/23/20 05/23/20 Range/Units 04:00 04:35 05:31 APTT (22.0-30.0) sec Sodium (137-145) mmol/L Carbon Dioxide (22-30) mmol/L Creatinine (0.66-1.25) mg/dL Glucose (74-99) mg/dL POC Glucose (mg/dL) 299 H 249 H 284 H (75-99) mg/dL Alkaline Phosphatase (38-126) U/L 05/23/20 05/23/20 Range/Units 06:08 07:22 APTT (22.0-30.0) sec Sodium (137-145) mmol/L Carbon Dioxide (22-30) mmol/L Creatinine (0.66-1.25) mg/dL Glucose (74-99) mg/dL POC Glucose (mg/dL) 161 H 122 H (75-99) mg/dL Alkaline Phosphatase (38-126) U/L Diabetes panel 05/22/20 Range/Units 21:45 Sodium 130 L (137-145) mmol/L Potassium 4.5 (3.5-5.1) mmol/L Chloride 99 (98-107) mmol/L Carbon Dioxide 21 L (22-30) mmol/L BUN 12 (9-20) mg/dL Creatinine 0.56 L (0.66-1.25) mg/dL Glucose 437 H (74-99) mg/dL Calcium 9.2 (8.4-10.2) mg/dL AST 22 (17-59) U/L ALT 16 (4-49) U/L Alkaline Phosphatase 184 H (38-126) U/L Total Protein 6.4 (6.3-8.2) g/dL Albumin 3.7 (3.5-5.0) g/dL Calcium panel 05/22/20 Range/Units 21:45 Calcium 9.2 (8.4-10.2) mg/dL Albumin 3.7 (3.5-5.0) g/dL Pituitary panel 05/22/20 Range/Units 21:45 Sodium 130 L (137-145) mmol/L Potassium 4.5 (3.5-5.1) mmol/L Chloride 99 (98-107) mmol/L Carbon Dioxide 21 L (22-30) mmol/L BUN 12 (9-20) mg/dL Creatinine 0.56 L (0.66-1.25) mg/dL Glucose 437 H (74-99) mg/dL Calcium 9.2 (8.4-10.2) mg/dL Adrenal panel 05/22/20 Range/Units 21:45 Sodium 130 L (137-145) mmol/L Potassium 4.5 (3.5-5.1) mmol/L Chloride 99 (98-107) mmol/L Carbon Dioxide 21 L (22-30) mmol/L BUN 12 (9-20) mg/dL Creatinine 0.56 L (0.66-1.25) mg/dL Glucose 437 H (74-99) mg/dL Calcium 9.2 (8.4-10.2) mg/dL Total Bilirubin 0.6 (0.2-1.3) mg/dL AST 22 (17-59) U/L ALT 16 (4-49) U/L Alkaline Phosphatase 184 H (38-126) U/L Total Protein 6.4 (6.3-8.2) g/dL Albumin 3.7 (3.5-5.0) g/dL - Imaging Comments: X-ray left foot: No acute osseous abnormality. 4 mm radiopaque foreign body between the third and fourth toes and suggestive of retained syringe needle Assessment and Plan Assessment: 1. Cellulitis of the left foot 2. Claudication 3. Retained foreign body between the third and fourth toes of the left foot per X-RAY report 4. History of insulin dependent diabetes mellitus 5. History of coronary artery disease 6. History of peripheral neuropathy 7. History of hypertension Plan: 1. Supportive care 2. Antibiotics per recommendations from infectious disease 3. Will order Doppler ultrasound of left lower extremity 4. Will order Arterial Doppler US B/L lower extremities 4. Patient will be scheduled for abdominal aortogram with runoff tomorrow 5. Patient may have consistent carbohydrate diet, nothing by mouth after midnig ht Thank you for this consultation and allowing us take part in the plan of care of your patient during his hospital stay The impression and plan of care has been dictated as directed. I performed a history and examination of this patient, discussed the same with the dictator. I agree with the dictator's note ,documented as a scribe. Any additional findings or plans will be noted.
[2020-05-23 09:32] LABS: Glucose,Whole Blood 228 mg/dL (75-99)
[2020-05-23 10:39] LABS: Glucose,Whole Blood 269 mg/dL (75-99)
[2020-05-23 11:32] LABS: Glucose,Whole Blood 179 mg/dL (75-99)
--- NOTE | 2020-05-23 11:39 | P.HPIM ---
History of Present Illness this is a pleasant 70 years old male with past medical history of coronary artery disease status post stent, diabetes mellitus, hypertension, osteoarthritis, GERD, peripheral neuropathy and spondylolisthesis. this patient of Dr. Gibbs.Presents because of left foot pain and reddish discoloration for 2 weeks, he thinks that elevating the foot helps him however patient has pain at rest and on walking. He has redness on his left toes and forefoot and his foot feels cold and painful 10/10. Patient denies chest pain or dyspnea or fever. No change in urine or bowel habits. he denies smoking, alcohol or illicit drugs vitals are stable. Blood pressure is low normal at 86/52. basic metabolic panel showing mild hyponatremia at 1:30, creatinine normal at 0.5liver enzymes are not elevated. Glucose is slightly elevated at 340-419. coronavirus not detected Foot x-ray showing no acute osseous abnormality. 4 mm radiopaque foreign body between the third and fourth toes suggestive of retained needle foreign body currently patient was started on ceftriaxone and IV vancomycin. He is also on normal saline at 1 30 mL/h Review of Systems CONSTITUTIONAL: No fever, no malaise, no fatigue. HEENT: No recent visual problems or hearing problems. Denied any sore throat. CARDIOVASCULAR: No orthopnea, PND, no palpitations, no syncope. PULMONARY: No shortness of breath, no cough, no hemoptysis. GASTROINTESTINAL: No diarrhea, no nausea, no vomiting, no abdominal pain. Normoactive bowel sounds. NEUROLOGICAL: No headaches, no weakness, no numbness. HEMATOLOGICAL: Denies any bleeding or petechiae. GENITOURINARY: Denies any burning micturition, frequency, or urgency. MUSCULOSKELETAL/RHEUMATOLOGICAL: Denies any joint pain, swelling, or any muscle pain. ENDOCRINE: Denies any polyuria or polydipsia. Past Medical History Past Medical History: Coronary Artery Disease (CAD), Diabetes Mellitus, Eye Disorder, GERD/Reflux, Hypertension, Musculoskeletal Disorder, Osteoarthritis (OA) Additional Past Medical History / Comment(s): peripheral neuropathy,. spondilolithesis. disabled-moves slowly History of Any Multi-Drug Resistant Organisms: None Reported Past Surgical History: Heart Catheterization With Stent, Orthopedic Surgery, Tonsillectomy Additional Past Surgical History / Comment(s): lt knee surg. lt knee scope. [facility] PROCEDURES Past Anesthesia/Blood Transfusion Reactions: No Reported Reaction Date of Last Stent Placement:: 2008 Past Psychological History: Anxiety, Depression Smoking Status: Former smoker Past Alcohol Use History: None Reported Past Drug Use History: None Reported - Past Family History Mother Family Medical History: Unable to Obtain Medications and Allergies Home Medications Medication Instructions Recorded Confirmed Type Enalapril [Vasotec] 10 mg PO HS 05/22/20 05/22/20 History Insulin Glargine,Hum.rec.anlog 40 unit SQ BID 05/22/20 05/22/20 History [Lantus Solostar] Insulin Lispro [humaLOG Kwikpen] 6 unit SQ AC-TID 05/22/20 05/22/20 History Allergies Allergy/AdvReac Type Severity Reaction Status Date / Time No Known Allergies Allergy Verified 05/22/20 22:40 Physical Exam Vitals: Vital Signs Temp Pulse Pulse Resp BP BP Pulse Ox 05/23/20 05:52 78 86/52 05/23/20 03:48 101/63 05/23/20 03:41 70/39 05/23/20 03:36 71/36 05/23/20 02:07 98.1 F 76 16 87/65 97 05/23/20 01:00 68 18 99/77 96 05/23/20 00:00 65 18 101/74 96 05/22/20 23:29 74 18 90/65 95 05/22/20 22:08 71 18 81/50 92 L 05/22/20 20:35 98.3 F 83 20 88/52 94 L Intake and Output 05/22/20 05/23/20 05/23/20 22:59 06:59 14:59 Intake Total 51.594 10.958 Balance 51.594 10.958 Intake: Intake, IV Titration 51.594 10.958 Amount Insulin Regular 100 unit 51.594 10.958 In Sodium Chloride 0.9% 100 ml @ Titrate IV [facility] Rx#:[id number] Other: # Voids 1 Weight 97.522 kg 97.522 kg GENERAL: The patient is alert and oriented x3, not in any acute distress. Well developed, well nourished. HEENT: Pupils are round and equally reacting to light. EOMI. No scleral icterus. No conjunctival pallor. Normocephalic, atraumatic. No pharyngeal erythema. No thyromegaly. CARDIOVASCULAR: S1 and S2 present. No murmurs, rubs, or gallops. PULMONARY: Chest is clear to auscultation, no wheezing or crackles. ABDOMEN: Soft, nontender, nondistended, normoactive bowel sounds. No palpable organomegaly. MUSCULOSKELETAL: No joint swelling or deformity. -EXTREMITIES: No cyanosis, clubbing, or pedal edema. Left foot is cold, with redness on the left toe and forefoot and pain tenderness NEUROLOGICAL: Gross neurological examination did not reveal any focal deficits. SKIN: No rashes. No petechiae Results CBC & Chem 7: 05/22/20 21:45 05/22/20 21:45 Labs: Abnormal Lab Results - Last 24 Hours (Table) 05/22/20 05/22/20 05/22/20 Range/Units 21:45 21:45 23:28 APTT 21.9 L (22.0-30.0) sec Sodium 130 L (137-145) mmol/L Carbon Dioxide 21 L (22-30) mmol/L Creatinine 0.56 L (0.66-1.25) mg/dL Glucose 437 H (74-99) mg/dL POC Glucose (mg/dL) 551 H (75-99) mg/dL Alkaline Phosphatase 184 H (38-126) U/L 05/23/20 05/23/20 05/23/20 Range/Units 02:02 02:48 03:31 APTT (22.0-30.0) sec Sodium (137-145) mmol/L Carbon Dioxide (22-30) mmol/L Creatinine (0.66-1.25) mg/dL Glucose (74-99) mg/dL POC Glucose (mg/dL) 544 H 419 H 340 H (75-99) mg/dL Alkaline Phosphatase (38-126) U/L 05/23/20 05/23/20 05/23/20 Range/Units 04:00 04:35 05:31 APTT (22.0-30.0) sec Sodium (137-145) mmol/L Carbon Dioxide (22-30) mmol/L Creatinine (0.66-1.25) mg/dL Glucose (74-99) mg/dL POC Glucose (mg/dL) 299 H 249 H 284 H (75-99) mg/dL Alkaline Phosphatase (38-126) U/L 05/23/20 05/23/20 05/23/20 Range/Units 06:08 07:22 08:53 APTT (22.0-30.0) sec Sodium (137-145) mmol/L Carbon Dioxide (22-30) mmol/L Creatinine (0.66-1.25) mg/dL Glucose (74-99) mg/dL POC Glucose (mg/dL) 161 H 122 H 174 H (75-99) mg/dL Alkaline Phosphatase (38-126) U/L 05/23/20 05/23/20 Range/Units 09:29 10:37 APTT (22.0-30.0) sec Sodium (137-145) mmol/L Carbon Dioxide (22-30) mmol/L Creatinine (0.66-1.25) mg/dL Glucose (74-99) mg/dL POC Glucose (mg/dL) 228 H 269 H (75-99) mg/dL Alkaline Phosphatase (38-126) U/L Assessment and Plan Assessment: left foot cellulitis, with x-ray showing 4 m radiopaque foreign body between the third and fourth toes, possible needle Rule out ischemia of the left foot Hypertension, currently patient is hypotensive Diabetes mellitus Osteoarthritis Peripheral neuropathy History of coronary artery disease status post stent placement Plan: this is a pleasant 70 years old malepresents with left foot cellulitis, foreign body and possible ischemia.continue with antibiotics as per ID team recommendation. Continue with IV hydration.follow-up blood culture vascular surgery team on the case and they recommended ultrasound and Doppler of the left lower extremity. Labs and medication were reviewed.. Continue same treatment. Continue with symptomatic treatment. Resume home medication. Monitor lytes and vitals. DVT and GI prophylaxis. Further recommendations depends on the clinical course of the patient DVT prophylaxis: Subcutaneous heparin GI Prophylaxis: Pepcid PT/OT: Pending Prognosis is guarded
[2020-05-23 11:47] LABS: African American GFR (CKD) 119.7 (60.0-200.0); Non-African American GFR(CKD) 103.3 (60.0-200.0)
[2020-05-23 12:50] LABS: Glucose,Whole Blood 165 mg/dL (75-99)
[2020-05-23] MEDS: SODIUM CHLORIDE 0.9% 1,000 ML IV SCH ×2 (13:46→22:31)
--- NOTE | 2020-05-23 14:13 | US ---
EXAMINATION TYPE: US venous doppler duplex LE LT DATE OF EXAM: 05/23/2020 8:58 AM COMPARISON: NONE CLINICAL HISTORY: calf pain. left leg cellulitis, no h/o dvt, not on thinners SIDE PERFORMED: Left TECHNIQUE: The lower extremity deep venous system is examined utilizing real time linear array sonog aicha with graded compression, doppler sonography and color-flow sonography. VESSELS IMAGED: Common Femoral Vein Deep Femoral Vein Greater Saphenous Vein * Femoral Vein Popliteal Vein Small Saphenous Vein * Proximal Calf Veins (* superficial vessels) Left Leg: Negative for DVT IMPRESSION: No evidence for DVT.
[2020-05-23 15:02] LABS: Glucose,Whole Blood 343 mg/dL (75-99)
[2020-05-23 15:36] LABS: Glucose,Whole Blood 193 mg/dL (75-99)
[2020-05-23 16:40] LABS: Glucose,Whole Blood 187 mg/dL (75-99)
[2020-05-23] MEDS ORDERED: SODIUM CHLORIDE 0.9% 500 ML 500 ML IV ONE (18:38)
[2020-05-23 18:46] LABS: Glucose,Whole Blood 168 mg/dL (75-99)
[2020-05-23 20:36] LABS: Glucose,Whole Blood 205 mg/dL (75-99)
[2020-05-23 22:12] LABS: Glucose,Whole Blood 217 mg/dL (75-99)
[2020-05-24] MEDS ORDERED: VANCOMYCIN TROUGH DUE 1 EACH MISC MISCELLANE ONE (05:00)
[2020-05-24 05:37] LABS: Glucose,Whole Blood 164 mg/dL (75-99)
[2020-05-24 05:37] LABS: Glucose,Whole Blood 220 mg/dL (75-99)
[2020-05-24 05:38] LABS: Glucose,Whole Blood 149 mg/dL (75-99)
[2020-05-24 05:38] LABS: Glucose,Whole Blood 104 mg/dL (75-99)
[2020-05-24 05:44] LABS: Glucose,Whole Blood 228 mg/dL (75-99)
[2020-05-24 05:46] LABS: Urine Alcohol Negative (Negative); Urine Barbiturate Negative (Negative); Urine Cocaine Negative (Negative); Urine Methadone Negative (Negative); Urine Opiates Negative (Negative); Urine Phencyclidine Negative (Negative)
--- NOTE | 2020-05-24 05:59 | CONS ---
CONSULTATION DATE OF SERVICE: 05/23/2020 REASON FOR CONSULTATION: Left foot cellulitis. HISTORY OF PRESENT ILLNESS: The patient is a 70-year-old male with a past medical history significant for diabetes mellitus, diabetic neuropathy peripheral, coronary artery disease and hypertension. Patient admitted to the hospital with left foot pain and swelling that apparently has been going on for about 2 weeks before presentation to hospital. The patient denies any history of any trauma or anything falling on it. Patient currently not have any open wound. The patient did have erythematous discoloration of the toes, some swelling of the foot, but no redness, currently no open wound or any drainage. The patient describes the pain to the foot to more of a dull aching 2 to 3/10, no radiation. Denies having any fever or any chills. On presentation to the hospital, the patient was afebrile. The patient did have a normal white count of 10.6 with no left shift. The patient did have a creatinine of 0.56. The patient has been treated with Rocephin. Blood culture have been obtained which came back positive with gram- positive cocci. Wound culture has been added. Infectious Disease was consulted for further management and concern for possible cellulitis of the left lower extremity. REVIEW OF SYSTEMS: Positive points have been mentioned in HPI. Rest of systems are negative. PAST MEDICAL HISTORY: Coronary artery disease, diabetes mellitus, gastroesophageal reflux disease, hypertension, osteoarthritis, peripheral neuropathy. PAST SURGICAL HISTORY: PTCA with stent, tonsillectomy, left knee surgery. SOCIAL HISTORY: Remote history of smoking. No drinking or drug use. FAMILY HISTORY: No pertinent findings noticed. ALLERGIES: No known drug allergies. MEDICATIONS: The patient is currently on Rocephin, vancomycin, Tylenol, Dilaudid, Narcan, and IV fluid. PHYSICAL EXAMINATION: VITAL SIGNS: Blood pressure 87/59 with a pulse of 69, temperature 98.5, he is 93% on room air. GENERAL DESCRIPTION: Patient is an elderly male lying in bed in no distress. No tachypnea or accessory muscles of respiration use. HEENT: Examination shows no pallor or scleral icterus. Oral mucous membrane is dry. NECK: Trachea central, no thyromegaly. LUNGS: Unlabored breathing, clear to auscultation anteriorly. No wheeze or crackle. HEART: S1-S2, regular rate and rhythm. ABDOMEN: Soft, no tenderness. No guarding or rigidity. EXTREMITIES: No edema of the feet. Left foot is cold to touch. No erythema. Discoloration noted to the toe. No open wound or any drainage. SKIN: No rash or mass palpable. NEUROLOGICAL: Patient is awake, alert, oriented times three. Mood and affect normal. LABS: The patient's white count is normal. Creatinine is normal. Blood culture with Gram- positive cocci. DIAGNOSTIC IMPRESSION: 1. Patient with left foot pain likely secondary to ischemia. Clinically not behaving as cellulitis in this patient with no fever, no elevated white count, no left shift. 2. Positive blood culture, likely skin contamination. Clinically not behaving as a true bacteremia or septic. PLAN: 1. Discontinue vancomycin and Rocephin. 2. Start the patient on cefazolin 2 grams q.8 hours. 3. Await the vascular surgery workup including angiogram. 4. We will follow on his clinical condition and further adjust medication if needed. Thank you for this consultation. Will follow this patient along with you. MMODL / IJN: [id number] /
[2020-05-24 08:15] LABS: Glucose,Whole Blood 293 mg/dL (75-99)
[2020-05-24 09:32] LABS: Basophils % (A) 0.9 %; Eosinophils # (A) 0.44 X 10*3/uL (0.04-0.35); Eosinophils % (A) 3.8 %; HCT 40.3 % (39.6-50.0); HGB 13.4 g/dL (13.0-17.0); Lymphocytes # (A) 2.72 X 10*3/uL (0.90-5.00); Lymphocytes % (A) 23.8 %; MCH 30.1 pg (27.0-32.0); MCHC 33.3 g/dL (32.0-37.0); MCV 90.6 fL (80.0-97.0); Mean Platelet Volume 11.7 fL (9.5-12.2); Monocytes # (A) 0.66 X 10*3/uL (0.20-1.00); Monocytes % (A) 5.8 %; Neutrophils # (A) 7.48 X 10*3/uL (1.80-7.70); Neutrophils % (A) 65.4 %; Platelet Count 269 X 10*3/uL (140-440); RBC 4.45 X 10*6/uL (4.40-5.60); RDW 14.1 % (11.5-14.5); WBC 11.44 X 10*3/uL (4.50-10.00)
[2020-05-24] MEDS ORDERED: SODIUM CHLORIDE 0.9% 1,000 ML IV ONE (09:55)
[2020-05-24] MEDS ORDERED: LIDOCAINE 1% INJ 10MG/ML (20 ML MDV) SQ ONE (10:07)
[2020-05-24] MEDS ORDERED: IOPAMIDOL-250 100ML BTL INTRAARTER ONE ×2 (10:29→10:30)
--- NOTE | 2020-05-24 11:07 | P.OP ---
Date of Procedure: 05/24/20 Preoperative Diagnosis: #1: Bilateral femoral artery occlusive disease. #2: Suspected severe tibial artery occlusive disease. #3: Ischemic rest pain of the left foot. Postoperative Diagnosis: #1: Bilateral superficial femoral artery occlusion. #2: Single-vessel runoff left lower extremity via the peroneal artery. #3: Tibial artery occlusive disease on the right the exact extent of which is on known due to lack of adequate contrast volume. #4: Right common femoral artery stenosis. Procedure(s) Performed: #1: Ultrasound-guided cannulation right femoral artery. #2: Abdominal aorta with runoffs. #3: Selective left femoral angiography. Implants: None. Anesthesia: local Surgeon: Maldonado eWbb Estimated Blood Loss (ml): 5 IV fluids (ml): 250 Urine output (ml): 0 Pathology: none sent Condition: stable Disposition: no change Indications for Procedure: Patient is a 70-year-old male who presented with a complaint of ischemic rest pain of the left foot. X-ray left foot also demonstrates what appears to be a foreign body, most likely a needle from a diabetic syringe. Physical examination revealed femoral pulses be intact while the popliteal and pedal pulses to be absent bilaterally. Patient did undergo arterial Doppler study which demonstrated findings consistent with severe arterial insufficiency bilaterally. Patient is now offered angiography to further delineate vascular anatomy and possible percutaneous repair. Description of Procedure: Patient was brought to the special procedure suite. Both groins were sterilely prepped and draped in usual manner. 1% Xylocaine was utilized for local anesthesia of the tissues overlying the right femoral artery. With the aid of ultrasound and through the anesthetized area a multipurpose needle was utilized to cannulate the artery. Once cannulated soft-tip guidewire is advanced into the artery. The needle was withdrawn and a 5-Belarusian sheath was placed. Pigtail catheter was advanced over guidewire and positioned at the L1-L2 interspace. Abdominal aortogram was then performed. Once adequate films were obtained catheter is pulled down the level aortic bifurcation and iliofemoral, popliteal and tibial angiography was performed. To better visualize the tibial vessels on the left the pigtail catheter was manipulated across the aortic bifurcation. Guidewire is advanced down the level common femoral artery. The pigtail catheter exchanged for 5-[place]ian angled glide catheter. Angiography of the left lower extremity was performed. Once adequate films were obtained the catheter was withdrawn as was the sheath and pressure was held at the puncture site until all evidence of bleeding ceased. Patient tolerated procedure well and was returned to his room in satisfactory and stable condition. Total, contrast volume 140 ML's of Isovue 250. Total fluoroscopy time 4.1 minutes. Findings: Abdominal aortogram the abdominal aorta to be essentially widely patent with only small degree of atherosclerotic change noted. There are single renal arteries bilaterally without evidence of hemodynamically significant renal artery stenosis. Left iliac angiography demonstrates the common, as well as the external iliac arterial segments to be normally patent without significant atherosclerosis disease. Calcific vascular changes are noted. The internal iliac artery does demonstrate thus chronic change. Left femoral angiography demonstrates the common femoral artery to be normally patent. The profundus is unremarkable. There is flush occlusion of the SFA at the common femoral. This occlusion continues down to the level of the adductor canal where the distal SFA fills via collaterals into a popliteal artery which demonstrates a mid popliteal arterial segment stenosis. Distal popliteal artery is also somewhat narrowed. Left tibial angiography demonstrates total occlusion of the anterior tibial artery at its origin and is never visualized. The tibial peroneal trunk is patent. The peroneal artery fills normally. The posterior tibial artery fills proximally however occludes at it's mid segment. Right iliac angiography demonstrates the common external and internal segments to be essentially normal. Right femoral angiography demonstrates significant stenosis of the common femoral artery which occludes shortly after its takeoff. It fills via collaterals at the level of the adductor canal and drains into a relatively normal-appearing popliteal artery. Timing of the contrast and imaging was suboptimal however to my best evaluation the peroneal artery is the only patent artery below the knee.
[2020-05-24] MEDS: SODIUM CHLORIDE 0.9% 1,000 ML IV SCH ×2 (11:24→13:25)
[2020-05-24 11:58] LABS: Glucose,Whole Blood 335 mg/dL (75-99)
[2020-05-24] MEDS: INSULIN DETEMIR (LEVEMIR) 100 UNIT/ML SYR SQ SCH ×2 (11:58→20:52)
--- NOTE | 2020-05-24 13:04 | IR ---
Fluoroscopy HISTORY: Pain in left leg 4.1 minutes fluoroscopy time supplied to the referring clinician. 297 intraoperative C-arm images do cument the procedure. See dictated report from vascular surgery.
[2020-05-24] MEDS: INSULIN ASPART (NovoLOG) 100 UNIT/ML VIAL SQ SCH ×5 (13:24→20:52)
--- NOTE | 2020-05-24 14:14 | P.PN ---
Subjective This is a pleasant 70 years old male with past medical history of coronary artery disease status post stent placement, diabetes mellitus, GERD, hype rtension, osteoarthritis. Patient presents because of the left foot redness, pain and swelling of 2 weeks. Patient was admitted for cellulitis of the left foot with possible foreign body of the foot from needle Patient was hypotensive upon admission 88/52, currently blood pressure 82/60 2117/74. Left showing unremarkable CBC, INR, BMP and liver enzymes except for sodium 1:30 and elevated glucose at 437 Coronal varus not detected Foot x-ray showing no acute osseous abnormality, 4 mm radiopaque foreign body between the third and fourth toes and suggestive of retained sponge and needle In the emergency room patient was started on ceftriaxone and vancomycin On follow-up today 05/24 Patient clinically looks similar to yesterday with left foot pain and bright redness of the left foot and forefoot. Vascular surgery evaluated the patient he underwent selective left femoral artery angiography with ultrasound-guided cannulation of the right femoral artery for his peripheral artery disease Also patient blood culture came back positive with Streptococcus. Antibiotic was changed to cefazolin by ID team. His lactic acid is not elevated and WBC is 11.4. Glucose is slightly elevated. Patient remains on normal saline at 1 30 mL/h, resumed his insulin Levemir 14 units twice a day and 6 units with meals instead of insulin drip. Hemoglobin A1c is pending CONSTITUTIONAL: No fever, no malaise, no fatigue. HEENT: No recent visual problems or hearing problems. Denied any sore throat. CARDIOVASCULAR: No orthopnea, PND, no palpitations, no syncope. PULMONARY: No shortness of breath, no cough, no hemoptysis. GASTROINTESTINAL: No diarrhea, no nausea, no vomiting, no abdominal pain. Normoactive bowel sounds. NEUROLOGICAL: No headaches, no weakness, no numbness. Active Medications Generic Name Dose Route Start Last Admin Trade Name Freq PRN Reason Stop Dose Admin Acetaminophen 650 mg 05/22/20 22:23 05/23/20 06:00 Acetaminophen Tab 325 Mg Tab PO 650 mg Q6HR PRN Administration Mild Pain or Fever > 100.5 Famotidine 20 mg 05/24/20 21:00 Famotidine 20 Mg/2 Ml Vial IV Q12HR [facility] Heparin Sodium (Porcine) 5,000 unit 05/25/20 09:00 Heparin Sodium,Porcine 5,000 Unit/Ml 1 Ml Vial SQ Q12HR LEENA Hydromorphone HCl 0.5 mg 05/22/20 22:23 Hydromorphone 0.5 Mg/0.5 Ml Syringe IVP Q3HR PRN Moderate Pain Sodium Chloride 1,000 mls @ 130 mls/hr 05/22/20 22:30 05/24/20 13:25 Saline 0.9% IV 130 mls/hr .Q7H42M LEENA Administration Cefazolin Sodium 2 gm/ Sodium 50 mls @ 100 mls/hr 05/24/20 00:00 05/24/20 08:47 Chloride IVPB 100 mls/hr Q8HR LEENA Administration Insulin Aspart 0 unit 05/24/20 12:30 05/24/20 13:24 Insulin Aspart (Novolog) 100 Unit/Ml Vial SQ 6 unit ACHS LEENA Administration Protocol Insulin Aspart 6 unit 05/24/20 12:30 05/24/20 13:24 Insulin Aspart (Novolog) 100 Unit/Ml Vial SQ 6 unit AC-TID LEENA Administration Insulin Detemir 40 unit 05/24/20 09:00 05/24/20 11:58 Insulin Detemir (Levemir) 100 Unit/Ml Syr SQ Not Given BID@0700,2100 [facility] Naloxone HCl 0.2 mg 05/22/20 22:23 Naloxone 0.4 Mg/Ml 1 Ml Vial IV Q2M PRN Opioid Reversal Objective - Vital Signs Vital signs: Vital Signs Temp 97.6 F 05/24/20 11:10 Pulse 83 05/24/20 12:25 Resp 18 05/24/20 12:25 BP 82/60 05/24/20 12:25 Pulse Ox 98 05/24/20 12:25 Intake & Output 05/23/20 05/24/20 05/24/20 18:59 06:59 18:59 Intake Total 177.840 100 Output Total 450 Balance 177.840 -450 100 Intake: IV 130 100 Sodium Chloride 0.9% 1, 130 000 ml @ 130 mls/hr IV . Q7H42M [facility] Rx#:[id number] Intake, IV Titration 47.840 Amount Insulin Regular 100 unit 47.840 In Sodium Chloride 0.9% 100 ml @ Titrate IV .Q0M [facility] Rx#:[id number] Output: Urine 450 Other: Voiding Method Urinal Urinal Urinal # Voids 1 - Exam GENERAL: The patient is alert and oriented x3, not in any acute distress. Well developed, well nourished. HEENT: Pupils are round and equally reacting to light. EOMI. No scleral icterus. No conjunctival pallor. Normocephalic, atraumatic. No pharyngeal erythema. No thyromegaly. CARDIOVASCULAR: S1 and S2 present. No murmurs, rubs, or gallops. PULMONARY: Chest is clear to auscultation, no wheezing or crackles. ABDOMEN: Soft, nontender, nondistended, normoactive bowel sounds. No palpable organomegaly. MUSCULOSKELETAL: No joint swelling or deformity. -EXTREMITIES: No cyanosis, clubbing, or pedal edema. Left foot is cold, with redness on the left toe and forefoot and pain tenderness NEUROLOGICAL: Gross neurological examination did not reveal any focal deficits. SKIN: No rashes. No petechiae - Labs CBC & Chem 7: 05/24/20 06:53 05/23/20 08:07 Labs: Abnormal Lab Results - Last 24 Hours (Table) 05/23/20 05/23/20 05/23/20 Range/Units 15:01 15:34 16:39 WBC (4.50-10.00) X 10*3/uL Eosinophils # (0.04-0.35) X 10*3/uL POC Glucose (mg/dL) 343 H 193 H 187 H (75-99) mg/dL 05/23/20 05/23/20 05/23/20 Range/Units 18:45 20:35 22:10 WBC (4.50-10.00) X 10*3/uL Eosinophils # (0.04-0.35) X 10*3/uL POC Glucose (mg/dL) 168 H 205 H 217 H (75-99) mg/dL 05/23/20 05/24/20 05/24/20 Range/Units 23:33 01:30 03:44 WBC (4.50-10.00) X 10*3/uL Eosinophils # (0.04-0.35) X 10*3/uL POC Glucose (mg/dL) 220 H 164 H 104 H (75-99) mg/dL 03/26/21 03/26/21 03/26/21 Range/Units 04:39 05:43 06:53 WBC 11.44 H (4.50-10.00) X 10*3/uL Eosinophils # 0.44 H (0.04-0.35) X 10*3/uL POC Glucose (mg/dL) 149 H 228 H (75-99) mg/dL 05/24/20 05/24/20 Range/Units 08:13 11:56 WBC (4.50-10.00) X 10*3/uL Eosinophils # (0.04-0.35) X 10*3/uL POC Glucose (mg/dL) 293 H 335 H (75-99) mg/dL Microbiology - Last 24 Hours (Table) 05/22/20 15:18 Blood Culture Gram Stain - Preliminary Blood Blood Culture - Preliminary Alpha Hemolytic Streptococcus 05/22/20 21:45 Blood Culture - Preliminary Blood No Growth after 24 hours Assessment and Plan Assessment: left foot cellulitis, with x-ray showing 4 m radiopaque foreign body between the third and fourth toes, possible needle Rule out ischemia of the left foot Hypertension, currently patient is hypotensive Diabetes mellitus Osteoarthritis Peripheral neuropathy History of coronary artery disease status post stent placement Plan: this is a pleasant 70 years old malepresents with left foot cellulitis, foreign body and possible ischemia.continue with antibiotics as per ID team recommendation. Continue with IV hydration.follow-up blood culture final results vascular surgery team on the case and patient status post angiogram and ca nnulation of his peripheral arteries by vascular surgery. Resume his Levemir and NovoLog and insulin sliding scale Labs and medication were reviewed.. Continue same treatment. Continue with symptomatic treatment. Resume home medication. Monitor lytes and vitals. DVT and GI prophylaxis. Further recommendations depends on the clinical course of the patient DVT prophylaxis: Subcutaneous heparin GI Prophylaxis: Pepcid PT/OT: Pending Prognosis is guarded
--- NOTE | 2020-05-24 16:01 | PN ---
PROGRESS NOTE DATE OF SERVICE: 05/24/2020 REASON FOR FOLLOWUP: 1. Left foot cellulitis. 2. Positive blood culture. INTERVAL HISTORY: The patient is currently afebrile. The patient is breathing comfortably. The patient is status post abdominal aorta angiogram with runoff. This patient did have evidence of bilateral superficial femoral artery occlusion, tibial artery occlusive disease on the right. The patient tolerated the procedure. The patient currently denies having any chest pain, shortness of breath or cough. No abdominal pain or diarrhea. PHYSICAL EXAMINATION: Blood pressure 111/70 with a pulse of 83, temperature 98.4. He is 97% on room air. General description is an elderly male lying in bed in no distress. RESPIRATORY SYSTEM: Unlabored breathing. Clear to auscultation anteriorly. HEART: S1, S2. Regular rate and rhythm. ABDOMEN: Soft. No tenderness. Left foot did have some erythematous changes and cold to touch. No open wound or any drainage. LABS: Hemoglobin 13.4, white count 11.44. Blood culture with alpha hemolytic streptococcus. DIAGNOSTIC IMPRESSION AND PLAN: Patient admitted to hospital with left foot pain, high clinical suspicion for possible ischemia. Not behaving as a typical cellulitis, with no fever or elevated white count positive blood culture with alpha hemolytic Streptococcus. Waiting for the final ID and sensitivity. Patient to continue cefazolin while waiting for the culture to finalize. Continue with supportive care. MMODL / IJN: [id number] /
[2020-05-24 16:41] LABS: Glucose,Whole Blood 346 mg/dL (75-99)
[2020-05-24 20:19] LABS: Glucose,Whole Blood 319 mg/dL (75-99)
[2020-05-24] MEDS: FAMOTIDINE 20 MG/2 ML VIAL IV SCH (20:52)
[2020-05-24 22:29] LABS: Hemoglobin A1C 11.5 % (4.0-6.0)
[2020-05-25] MEDS: SODIUM CHLORIDE 0.9% 1,000 ML IV SCH ×4 (00:08→18:21)
[2020-05-25 07:21] LABS: Glucose,Whole Blood 212 mg/dL (75-99)
[2020-05-25] MEDS ORDERED: INSULIN ASPART (NovoLOG) 100 UNIT/ML VIAL SQ SCH (07:30)
[2020-05-25] MEDS: INSULIN DETEMIR (LEVEMIR) 100 UNIT/ML SYR SQ SCH ×2 (08:24→21:04)
[2020-05-25] MEDS: INSULIN ASPART (NovoLOG) 100 UNIT/ML VIAL SQ SCH ×6 (08:25→21:04)
[2020-05-25] MEDS: HEPARIN SODIUM,PORCINE 5,000 UNIT/ML 1 ML VIAL SQ SCH ×2 (09:13→21:03)
[2020-05-25] MEDS: FAMOTIDINE 20 MG/2 ML VIAL IV SCH (09:13)
[2020-05-25 11:23] LABS: Basophils # (A) 0.08 X 10*3/uL (0.00-0.10); Basophils % (A) 0.9 %; Eosinophils # (A) 0.49 X 10*3/uL (0.04-0.35); Eosinophils % (A) 5.5 %; HCT 41.4 % (39.6-50.0); HGB 13.6 g/dL (13.0-17.0); Lymphocytes # (A) 2.07 X 10*3/uL (0.90-5.00); Lymphocytes % (A) 23.4 %; MCH 30.2 pg (27.0-32.0); MCHC 32.9 g/dL (32.0-37.0); MCV 91.8 fL (80.0-97.0); Mean Platelet Volume 11.3 fL (9.5-12.2); Monocytes # (A) 0.64 X 10*3/uL (0.20-1.00); Monocytes % (A) 7.2 %; Neutrophils # (A) 5.54 X 10*3/uL (1.80-7.70); Neutrophils % (A) 62.7 %; Platelet Count 264 X 10*3/uL (140-440); RBC 4.51 X 10*6/uL (4.40-5.60); RDW 14.5 % (11.5-14.5); WBC 8.85 X 10*3/uL (4.50-10.00)
[2020-05-25 11:31] LABS: Glucose,Whole Blood 160 mg/dL (75-99)
[2020-05-25 11:32] LABS: African American GFR (CKD) 106.4 (60.0-200.0); Anion Gap 8.8 mmol/L (4.00-12.00); BUN/Creat Ratio 13.75 Ratio (12.00-20.00); Calcium 8.9 mg/dL (8.7-10.3); Carbon Dioxide 24.2 mmol/L (21.6-31.8); Non-African American GFR(CKD) 91.8 (60.0-200.0); Potassium 4.3 mmol/L (3.5-5.5)
[2020-05-25 13:34] VITALS: BMI 26.2
--- NOTE | 2020-05-25 14:47 | ECHOF ---
Referral Reason:Rule out heart disease MEASUREMENTS -------- HEIGHT: 193.0 cm WEIGHT: 97.5 kg BP: 91/62 IVSd: 1.1 cm (0.6 - 1.1) LVIDd: 3.7 cm (3.9 - 5.3) LVPWd: 1.1 cm (0.6 - 1.1) EDV(Teich): 58 ml IVSs: 1.6 cm LVIDs: 2.4 cm LVPWs: 1.6 cm %IVS Thck: 36 % ESV(Teich): 21 ml EF(Teich): 64 % %FS: 34 % SV(Teich): 37 ml LA Diam: 3.6 cm (2.7 - 3.8) RVIDd: 3.4 cm (< 3.3) Ao Diam: 3.5 cm (2.0 - 3.7) AV Cusp: 2.2 cm (1.5 - 2.6) EPSS: 0.2 cm MV E Akbar: 0.75 m/s MV DecT: 311 ms MV Dec [place]: 2.4 m/s MV A Akbar: 0.79 m/s MV E/A Ratio: 0.95 MV PHT: 90 ms AV Vmax: 1.05 m/s AV maxP.42 mmHg MV EF SLOPE: 70.53 mm/s (70 - 150) MV EXCURSION: 16.27 mm (> 18.000) FINDINGS -------- Sinus rhythm. This was a technically adequate study. The left ventricular size is normal. There is borderline concentric left ventricular hypertrophy. Overall left ventricular systolic function is normal with, an EF between 60 - 65 %. The right ventricle is mildly enlarged. The left atrium is normal in size. The right atrium is normal in size. Interatrial and interventricular septum intact. The aortic valve is trileaflet, and appears structurally normal. No aortic stenosis or regurgitation. The mitral valve is normal. The tricuspid valve appears structurally normal. Unable to estimate RVSP due to inadequate TR jet s pectral doppler profile. There is no pulmonic regurgitation present. The aortic root size is normal. Normal inferior vena cava with normal inspiratory collapse consistent with estimated right atrial pre ssure of 5 mmHg. There is no pericardial effusion. CONCLUSIONS -------- 1. The left ventricular size is normal. 2. There is borderline concentric left ventricular hypertrophy. 3. Overall left ventricular systolic function is normal with, an EF between 60 - 65 %. 4. The right ventricle is mildly enlarged. 5. The aortic valve is trileaflet, and appears structurally normal. No aortic stenosis or regurgitati on. 6. There is no pericardial effusion. TRIPE COOKER: Urszula Cunningham RDCS
--- NOTE | 2020-05-25 14:57 | P.PN ---
Subjective Progress Note Date: 05/25/20 Patient seen and examined. Overall doing well. States he feels his pain is improved since he was admitted. No complaints of new issues Objective - Vital Signs Vital signs: Vital Signs Temp 97.6 F 05/25/20 07:53 Pulse 95 05/25/20 07:53 Resp 20 05/25/20 08:00 BP 102/67 05/25/20 07:53 Pulse Ox 95 05/25/20 07:53 Intake & Output 05/24/20 05/25/20 05/25/20 18:59 06:59 18:59 Intake Total 1510 Output Total 2300 400 Balance -790 -400 Weight 97.522 kg Intake: IV 1270 Sodium Chloride 0.9% 1, 1170 000 ml @ 130 mls/hr IV . Q7H42M [facility] Rx#:[id number] Oral 240 Output: Urine 2300 400 Other: Voiding Method Urinal Urinal Urinal # Voids 1 2 - Exam Genitals a pleasant cooperative male in no acute distress. HEENT is normal cephalic, chronic, extraocular motion intact. Heart appears regular at this gene e. Lungs are clear bilaterally. Abdomen soft. Right groin clean, dry, intact. No evidence of hematoma or pseudoaneurysm. Dressings to left lower extremity - Labs CBC & Chem 7: 05/25/20 08:46 05/25/20 08:46 Labs: Abnormal Lab Results - Last 24 Hours (Table) 05/24/20 05/24/20 05/24/20 Range/Units 06:53 06:53 16:38 Eosinophils # (0.04-0.35) X 10*3/uL ESR 21 H (0-20) mm/Hr Glucose (70-110) mg/dL POC Glucose (mg/dL) 346 H (75-99) mg/dL Hemoglobin A1c 11.5 H (4.0-6.0) % 05/24/20 05/25/20 05/25/20 Range/Units 20:17 07:19 08:46 Eosinophils # 0.49 H (0.04-0.35) X 10*3/uL ESR (0-20) mm/Hr Glucose (70-110) mg/dL POC Glucose (mg/dL) 319 H 212 H (75-99) mg/dL Hemoglobin A1c (4.0-6.0) % 05/25/20 05/25/20 Range/Units 08:46 11:30 Eosinophils # (0.04-0.35) X 10*3/uL ESR (0-20) mm/Hr Glucose 266 H (70-110) mg/dL POC Glucose (mg/dL) 160 H (75-99) mg/dL Hemoglobin A1c (4.0-6.0) % Microbiology - Last 24 Hours (Table) 05/22/20 15:18 Blood Culture Gram Stain - Final Blood Blood Culture - Final Alpha Hemolytic Streptococcus 05/24/20 06:35 Blood Culture - Preliminary Blood No Growth after 24 hours 05/24/20 06:53 Blood Culture - Preliminary Blood No Growth after 24 hours 05/22/20 21:45 Blood Culture - Final Blood 05/23/20 23:05 Blood Culture - Preliminary Blood No Growth after 24 hours Assessment and Plan Assessment: #1 left foot cellulitis #2 peripheral arterial disease, superficial femoral artery occlusion bilaterally #3 claudication #4 history of insulin-dependent diabetes #5 history of coronary artery disease #6 history of peripheral neuropathy #7 history of hypertension Plan: Patient likely will need a femoral-popliteal bypass. We will decide on timing. He would need cardiac clearance prior to this. Continue IV antibiotics and clearance of infection.
[2020-05-25 17:35] LABS: Glucose,Whole Blood 123 mg/dL (75-99)
--- NOTE | 2020-05-25 18:21 | PN ---
PROGRESS NOTE DATE OF SERVICE: 05/25/2020 REASON FOR FOLLOWUP: 1. Left foot cellulitis. 2. Positive blood culture. INTERVAL HISTORY: Patient is currently afebrile. The patient is breathing comfortably. The patient denies having any chest pain or shortness of breath or cough. No abdominal pain or any worsening pain to the left foot. EXAMINATION: Blood pressure 152/67, pulse of 95, temperature is 97.6. General description is an elderly male up in the room in no distress. Respiratory system: Unlabored breathing, clear to auscultation anteriorly. Heart S1, S2. Regular rate and rhythm. Abdomen: Soft, no tenderness. Left foot did have some discoloration. No warmth. LABS: White count normal 8.85, creatinine 0.8. Blood culture repeat has been negative. DIAGNOSTIC IMPRESSION AND PLAN: Patient admitted to the hospital with left foot pain, more likely secondary to underlying ischemia in this patient who does have evidence of peripheral arterial disease and vascular consult pending for the bypass grafting. Blood culture Streptococcus. Repeat blood culture negative. Patient on cefazolin, may consider Keflex on discharge and close outpatient followup. MMODL / IJN: [id number] /
--- NOTE | 2020-05-25 20:33 | P.PN ---
Subjective This is a pleasant 70 years old male with past medical history of coronary artery disease status post stent placement, diabetes mellitus, GERD, hype rtension, osteoarthritis. Patient presents because of the left foot redness, pain and swelling of 2 weeks. Patient was admitted for cellulitis of the left foot with possible foreign body of the foot from needle Patient was hypotensive upon admission 88/52, currently blood pressure 82/60 2117/74. Left showing unremarkable CBC, INR, BMP and liver enzymes except for sodium 1:30 and elevated glucose at 437 Coronal varus not detected Foot x-ray showing no acute osseous abnormality, 4 mm radiopaque foreign body between the third and fourth toes and suggestive of retained sponge and needle In the emergency room patient was started on ceftriaxone and vancomycin On follow-up today 05/24 Patient clinically looks similar to yesterday with left foot pain and bright redness of the left foot and forefoot. Vascular surgery evaluated the patient he underwent selective left femoral artery angiography with ultrasound-guided cannulation of the right femoral artery for his peripheral artery disease Also patient blood culture came back positive with Streptococcus. Antibiotic was changed to cefazolin by ID team. His lactic acid is not elevated and WBC is 11.4. Glucose is slightly elevated. Patient remains on normal saline at 1 30 mL/h, resumed his insulin Levemir 14 units twice a day and 6 units with meals instead of insulin drip. Hemoglobin A1c is pending 05/25/2020 Patient with left foot cellulitis and ischemia, and patient felt less likely and more its vascular disease, vascular team on the case and since he is stable and pain is stable in his left foot, vascular surgery are clear the patient for discharge and follow-up outpatient to decide about timing for femoral popliteal bypass procedure. However patient has postobstructive bacteremia and positive blood culture, repeat blood cultures pending. Patient kept on cefazolin with ID team of the case, ESR is only minimally elevated at 21 with normal C-reactive protein less than 0.4. No fever or leukocytosis. Glucose is better controlled after increasing his NovoLog with meals from 6 up to 10 units, he is also on Levemir 40 units twice a day. His hemoglobin A1C is 11.5. His blood pressure is low normal, however patient is asymptomatic. Echocardiogram is checked and ejection fraction 60-65%, suspicion for infection is low. We will order serum cortisol and TSH tomorrow Objective - Vital Signs Vital signs: Vital Signs Temp 97.6 F 05/25/20 07:53 Pulse 95 05/25/20 07:53 Resp 20 05/25/20 08:00 BP 102/67 05/25/20 07:53 Pulse Ox 95 05/25/20 07:53 Intake & Output 05/24/20 05/25/20 05/25/20 18:59 06:59 18:59 Intake Total 1510 240 Output Total 2300 700 Balance -790 -460 Weight 97.522 kg Intake: IV 1270 Sodium Chloride 0.9% 1, 1170 000 ml @ 130 mls/hr IV . Q7H42M [facility] Rx#:[id number] Oral 240 240 Output: Urine 2300 700 Other: Voiding Method Urinal Urinal Urinal # Voids 1 2 - Exam GENERAL: The patient is alert and oriented x3, not in any acute distress. Well developed, well nourished. HEENT: Pupils are round and equally reacting to light. EOMI. No scleral icterus. No conjunctival pallor. Normocephalic, atraumatic. No pharyngeal erythema. No thyromegaly. CARDIOVASCULAR: S1 and S2 present. No murmurs, rubs, or gallops. PULMONARY: Chest is clear to auscultation, no wheezing or crackles. ABDOMEN: Soft, nontender, nondistended, normoactive bowel sounds. No palpable organomegaly. MUSCULOSKELETAL: No joint swelling or deformity. -EXTREMITIES: No cyanosis, clubbing, or pedal edema. Left foot is cold, with re dness on the left toe and forefoot and pain tenderness NEUROLOGICAL: Gross neurological examination did not reveal any focal deficits. SKIN: No rashes. No petechiae - Labs CBC & Chem 7: 05/25/20 08:46 05/25/20 08:46 Labs: Abnormal Lab Results - Last 24 Hours (Table) 05/24/20 05/24/20 05/24/20 Range/Units 06:53 16:38 20:17 Eosinophils # (0.04-0.35) X 10*3/uL Glucose (70-110) mg/dL POC Glucose (mg/dL) 346 H 319 H (75-99) mg/dL Hemoglobin A1c 11.5 H (4.0-6.0) % 05/25/20 05/25/2005/25/21 Range/Units 07:19 08:46 08:46 Eosinophils # 0.49 H (0.04-0.35) X 10*3/uL Glucose 266 H (70-110) mg/dL POC Glucose (mg/dL) 212 H (75-99) mg/dL Hemoglobin A1c (4.0-6.0) % 05/25/20 Range/Units 11:30 Eosinophils # (0.04-0.35) X 10*3/uL Glucose (70-110) mg/dL POC Glucose (mg/dL) 160 H (75-99) mg/dL Hemoglobin A1c (4.0-6.0) % Microbiology - Last 24 Hours (Table) 05/22/20 15:18 Blood Culture Gram Stain - Final Blood Blood Culture - Final Alpha Hemolytic Streptococcus 05/24/20 06:35 Blood Culture - Preliminary Blood No Growth after 24 hours 05/24/20 06:53 Blood Culture - Preliminary Blood No Growth after 24 hours 05/22/20 21:45 Blood Culture - Final Blood 05/23/20 23:05 Blood Culture - Preliminary Blood No Growth after 24 hours Assessment and Plan Assessment: left foot cellulitis, with x-ray showing 4 m radiopaque foreign body between the third and fourth toes, possible needle Rule out ischemia of the left foot Hypertension, currently patient is hypotensive Diabetes mellitus Osteoarthritis Peripheral neuropathy History of coronary artery disease status post stent placement Plan: this is a pleasant 70 years old malepresents with left foot cellulitis, foreign body and possible ischemia.continue with antibiotics as per ID team recommendation. Continue with IV hydration.follow-up blood culture final results vascular surgery team on the case and patient status post angiogram and c annulation of his peripheral arteries by vascular surgery. Resume his Levemir and NovoLog and insulin sliding scale Labs and medication were reviewed.. Continue same treatment. Continue with symptomatic treatment. Resume home medication. Monitor lytes and vitals. DVT and GI prophylaxis. Further recommendations depends on the clinical course of the patient DVT prophylaxis: Subcutaneous heparin GI Prophylaxis: Pepcid PT/OT: Pending Prognosis is guarded
[2020-05-25 20:53] LABS: Glucose,Whole Blood 162 mg/dL (75-99)
[2020-05-25] MEDS: FAMOTIDINE 20 MG TAB PO SCH (21:03)
[2020-05-26] MEDS: SODIUM CHLORIDE 0.9% 1,000 ML IV SCH ×3 (01:18→19:25)
[2020-05-26 04:51] LABS: Glucose,Whole Blood 191 mg/dL (75-99)
[2020-05-26 07:44] LABS: Glucose,Whole Blood 236 mg/dL (75-99)
[2020-05-26] MEDS: INSULIN ASPART (NovoLOG) 100 UNIT/ML VIAL SQ SCH ×7 (08:54→20:45)
[2020-05-26] MEDS: INSULIN DETEMIR (LEVEMIR) 100 UNIT/ML SYR SQ SCH ×2 (08:55→20:49)
[2020-05-26] MEDS: HEPARIN SODIUM,PORCINE 5,000 UNIT/ML 1 ML VIAL SQ SCH ×2 (08:55→20:51)
[2020-05-26] MEDS: FAMOTIDINE 20 MG TAB PO SCH ×2 (08:55→20:51)
[2020-05-26 08:56] LABS: Eosinophils # (A) 0.69 X 10*3/uL (0.04-0.35); Eosinophils % (A) 7.1 %; HCT 40.6 % (39.6-50.0); HGB 13.4 g/dL (13.0-17.0); Lymphocytes % (A) 28.6 %; MCH 29.8 pg (27.0-32.0); MCV 90.2 fL (80.0-97.0); Mean Platelet Volume 11.4 fL (9.5-12.2); Monocytes % (A) 7.2 %; Neutrophils # (A) 5.46 X 10*3/uL (1.80-7.70); Neutrophils % (A) 55.8 %; Platelet Count 265 X 10*3/uL (140-440); RDW 14.3 % (11.5-14.5); WBC 9.78 X 10*3/uL (4.50-10.00)
[2020-05-26 09:09] LABS: African American GFR (CKD) 119.7 (60.0-200.0); Anion Gap 7.9 mmol/L (4.00-12.00); Calcium 8.7 mg/dL (8.7-10.3); Carbon Dioxide 21.1 mmol/L (21.6-31.8); Non-African American GFR(CKD) 103.3 (60.0-200.0); Potassium 3.9 mmol/L (3.5-5.5)
--- NOTE | 2020-05-26 10:03 | P.PN ---
Subjective Progress Note Date: 05/26/20 Patient seen and examined. Overall doing well. Still feels his pain is improved since he was admitted. No complaints of new issues Objective - Vital Signs Vital signs: Vital Signs Temp 98.3 F 05/26/20 07:13 Pulse 60 05/26/20 07:13 Resp 16 05/26/20 07:13 BP 93/60 05/26/20 07:13 Pulse Ox 97 05/26/20 07:13 Intake & Output 05/25/20 05/26/20 05/26/20 18:59 06:59 18:59 Intake Total 1380 1620 Output Total 700 600 Balance 680 1020 Weight 97.522 kg Intake: IV 1140 100 Sodium Chloride 0.9% 1, 1040 000 ml @ 130 mls/hr IV . Q7H42M [facility] Rx#:[id number] ceFAZolin 2 gm In Sodium 100 100 Chloride 0.9% 50 ml @ 100 mls/hr IVPB Q8HR [facility] Rx# :[id number] Intake, IV Titration 1040 Amount Sodium Chloride 0.9% 1, 1040 000 ml @ 130 mls/hr IV . Q7H42M [facility] Rx#:[id number] Oral 240 480 Output: Urine 700 600 Other: Voiding Method Urinal # Voids 2 - Exam Genitals a pleasant cooperative male in no acute distress. HEENT is normal cephalic, chronic, extraocular motion intact. Heart appears regular at this time. Lungs are clear bilaterally. Abdomen soft. Right groin clean, dry, intact. No evidence of hematoma or pseudoaneurysm. Left lower extremity with some ecchymosis to the second third toes, no obvious cyanosis. Motor sensory intact - Labs CBC & Chem 7: 05/26/20 06:21 05/26/20 06:21 Labs: Abnormal Lab Results - Last 24 Hours (Table) 05/25/20 05/25/20 05/25/20 Range/Units 08:46 08:46 11:30 Eosinophils # 0.49 H (0.04-0.35) X 10*3/uL Carbon Dioxide (21.6-31.8) mmol/L Glucose 266 H (70-110) mg/dL POC Glucose (mg/dL) 160 H (75-99) mg/dL 05/25/20 05/25/20 05/26/20 Range/Units 17:34 20:52 04:48 Eosinophils # (0.04-0.35) X 10*3/uL Carbon Dioxide (21.6-31.8) mmol/L Glucose (70-110) mg/dL POC Glucose (mg/dL) 123 H 162 H 191 H (75-99) mg/dL 05/26/20 05/26/20 05/26/20 Range/Units 06:21 06:21 07:43 Eosinophils # 0.69 H (0.04-0.35) X 10*3/uL Carbon Dioxide 21.1 L (21.6-31.8) mmol/L Glucose 193 H (70-110) mg/dL POC Glucose (mg/dL) 236 H (75-99) mg/dL Microbiology - Last 24 Hours (Table) 05/24/20 06:35 Blood Culture - Preliminary Blood No Growth after 48 hours 05/24/20 06:53 Blood Culture - Preliminary Blood No Growth after 48 hours 05/23/20 23:05 Blood Culture - Preliminary Blood No Growth after 48 hours 05/22/20 15:18 Blood Culture Gram Stain - Final Blood Blood Culture - Final Alpha Hemolytic Streptococcus 05/22/20 21:45 Blood Culture - Final Blood Assessment and Plan Assessment: #1 left foot cellulitis Bacteremia #2 peripheral arterial disease, superficial femoral artery occlusion bilaterally #3 claudication #4 history of insulin-dependent diabetes #5 history of coronary artery disease #6 history of peripheral neuropathy #7 history of hypertension Plan: At this point patient did correct positive the bacteremia. His cultures have since been negative. Do anticipate his best course would be continuing antibiotic therapy at this time and outpatient evaluation for possible bypass for his peripheral arterial disease. His vein mapping was performed here at this hospital and appears to be sufficient. Follow-up with Dr. Weinstein in the office
[2020-05-26 11:06] LABS: Glucose,Whole Blood 245 mg/dL (75-99)
[2020-05-26 17:18] LABS: Glucose,Whole Blood 185 mg/dL (75-99)
--- NOTE | 2020-05-26 19:37 | PN ---
PROGRESS NOTE DATE OF SERVICE: 05/26/2020 REASON FOR FOLLOWUP: Left foot cellulitis and bacteremia. INTERVAL HISTORY: Patient is currently afebrile. The patient is breathing comfortably. Patient denies having any chest pain. No shortness of breath or cough. No abdominal pain, or any worsening pain to the left foot. PHYSICAL EXAMINATION: Blood pressure 93/60 with a pulse of 73, temperature 98.3. He is 97% on room air. General description: The patient is an elderly male lying in bed in no distress. Respiratory system: Unlabored breathing, clear to auscultation anteriorly. Heart S1, S2. Regular rate and rhythm. Abdomen soft, no tenderness. Left foot swelling and redness has slightly decreased. LABS: Hemoglobin 13.4, white count 9.7, BUN of 9, creatinine 0.6. Blood culture repeat has been negative. DIAGNOSTIC IMPRESSION AND PLAN: Patient with left foot cellulitis in this patient who did have underlying peripheral arterial disease and likely component of ischemia. Redness seems to have improved. The patient is covered cefazolin. Repeat blood culture negative. To finish therapy with oral Keflex 500 mg p.o. q.6 hours for 10 days and close outpatient followup. MMODL / IJN: [id number] /
[2020-05-26 20:23] LABS: Glucose,Whole Blood 73 mg/dL (75-99)
--- NOTE | 2020-05-26 20:37 | P.PN ---
Subjective This is a pleasant 70 years old male with past medical history of coronary artery disease status post stent placement, diabetes mellitus, GERD, hype rtension, osteoarthritis. Patient presents because of the left foot redness, pain and swelling of 2 weeks. Patient was admitted for cellulitis of the left foot with possible foreign body of the foot from needle Patient was hypotensive upon admission 88/52, currently blood pressure 82/60 2117/74. Left showing unremarkable CBC, INR, BMP and liver enzymes except for sodium 1:30 and elevated glucose at 437 Coronal varus not detected Foot x-ray showing no acute osseous abnormality, 4 mm radiopaque foreign body between the third and fourth toes and suggestive of retained sponge and needle In the emergency room patient was started on ceftriaxone and vancomycin On follow-up today 05/24 Patient clinically looks similar to yesterday with left foot pain and bright redness of the left foot and forefoot. Vascular surgery evaluated the patient he underwent selective left femoral artery angiography with ultrasound-guided cannulation of the right femoral artery for his peripheral artery disease Also patient blood culture came back positive with Streptococcus. Antibiotic was changed to cefazolin by ID team. His lactic acid is not elevated and WBC is 11.4. Glucose is slightly elevated. Patient remains on normal saline at 1 30 mL/h, resumed his insulin Levemir 14 units twice a day and 6 units with meals instead of insulin drip. Hemoglobin A1c is pending 05/25/2020 Patient with left foot cellulitis and ischemia, and patient felt less likely and more its vascular disease, vascular team on the case and since he is stable and pain is stable in his left foot, vascular surgery are clear the patient for discharge and follow-up outpatient to decide about timing for femoral popliteal bypass procedure. However patient has postobstructive bacteremia and positive blood culture, repeat blood cultures pending. Patient kept on cefazolin with ID team of the case, ESR is only minimally elevated at 21 with normal C-reactive protein less than 0.4. No fever or leukocytosis. Glucose is better controlled after increasing his NovoLog with meals from 6 up to 10 units, he is also on Levemir 40 units twice a day. His hemoglobin A1C is 11.5. His blood pressure is low normal, however patient is asymptomatic. Echocardiogram is checked and ejection fraction 60-65%, suspicion for infection is low. We will order serum cortisol and TSH tomorrow 05/26/2020 Patient left leg redness and pain is improving, his obtuse and Dilaudid today however he still uses morphine. We going to stop both Dilaudid and morphine and put the patient on Gordon 7.5 mg and he is already on Ultram for anticipating so on discharge. Discussed the case with Dr. Vegas today and she recommended discharging the patient and follow-up with Dr. Aponte as an outpatient. As part of preop evaluation going to call cardiology tomorrow, echocardiogram already done showing an ejection fraction of 60-65% with borderline left ventricular hypertrophy. Also patient with no chest pain or dyspnea. Infectious disease input is appreciated and they recommended discharge patient on Keflex for 10 days. Repeat blood culture for strep bacteremia is negative so far. Pressure is a stable, low normal and asymptomatic. Cortisol is 5.8 which is within the reference range, TSH is normal as well at 1.4. Discontinue IV fluids and keep monitoring Glucose was on the low side today at 73, we lowered NovoLog with meals from 10 units down to 8 units before meals 3 times a day Possible discharge in 24-48 hours if he keeps improvement.. Objective - Vital Signs Vital signs: Vital Signs Temp 98.3 F 05/26/20 07:13 Pulse 60 05/26/20 07:13 Resp 16 05/26/20 08:00 BP 93/60 05/26/20 07:13 Pulse Ox 97 05/26/20 07:13 Intake & Output 05/25/20 05/26/20 05/26/20 18:59 06:59 18:59 Intake Total 1380 1620 Output Total 700 600 300 Balance 680 1020 -300 Weight 97.522 kg Intake: IV 1140 100 Sodium Chloride 0.9% 1, 1040 000 ml @ 130 mls/hr IV . Q7H42M [facility] Rx#:[id number] ceFAZolin 2 gm In Sodium 100 100 Chloride 0.9% 50 ml @ 100 mls/hr IVPB Q8HR [facility] Rx# :[id number] Intake, IV Titration 1040 Amount Sodium Chloride 0.9% 1, 1040 000 ml @ 130 mls/hr IV . Q7H42M [facility] Rx#:[id number] Oral 240 480 Output: Urine 700 600 300 Other: Voiding Method Urinal Urinal # Voids 2 - Exam GENERAL: The patient is alert and oriented x3, not in any acute distress. Well developed, well nourished. HEENT: Pupils are round and equally reacting to light. EOMI. No scleral icterus. No conjunctival pallor. Normocephalic, atraumatic. No pharyngeal erythema. No thyromegaly. CARDIOVASCULAR: S1 and S2 present. No murmurs, rubs, or gallops. PULMONARY: Chest is clear to auscultation, no wheezing or crackles. ABDOMEN: Soft, nontender, nondistended, normoactive bowel sounds. No palpable organomegaly. MUSCULOSKELETAL: No joint swelling or deformity. -EXTREMITIES: No cyanosis, clubbing, or pedal edema. Left foot is cold, with redness on the left toe and forefoot and pain tenderness NEUROLOGICAL: Gross neurological examination did not reveal any focal deficits. SKIN: No rashes. No petechiae - Labs CBC & Chem 7: 05/26/20 06:21 05/26/20 06:21 Labs: Abnormal Lab Results - Last 24 Hours (Table) 05/25/20 05/25/20 05/26/20 Range/Units 17:34 20:52 04:48 Eosinophils # (0.04-0.35) X 10*3/uL Carbon Dioxide (21.6-31.8) mmol/L Glucose (70-110) mg/dL POC Glucose (mg/dL) 123 H 162 H 191 H (75-99) mg/dL 05/26/20 05/26/20 05/26/20 Range/Units 06:21 06:21 07:43 Eosinophils # 0.69 H (0.04-0.35) X 10*3/uL Carbon Dioxide 21.1 L (21.6-31.8) mmol/L Glucose 193 H (70-110) mg/dL POC Glucose (mg/dL) 236 H (75-99) mg/dL 05/26/20 Range/Units 11:05 Eosinophils # (0.04-0.35) X 10*3/uL Carbon Dioxide (21.6-31.8) mmol/L Glucose (70-110) mg/dL POC Glucose (mg/dL) 245 H (75-99) mg/dL Microbiology - Last 24 Hours (Table) 05/24/20 06:35 Blood Culture - Preliminary Blood No Growth after 48 hours 05/24/20 06:53 Blood Culture - Preliminary Blood No Growth after 48 hours 05/23/20 23:05 Blood Culture - Preliminary Blood No Growth after 48 hours Assessment and Plan Assessment: left foot cellulitis, with x-ray showing 4 m radiopaque foreign body between the third and fourth toes, possible needle Rule out ischemia of the left foot Hypertension, currently patient is hypotensive Diabetes mellitus Osteoarthritis Peripheral neuropathy History of coronary artery disease status post stent placement Plan: this is a pleasant 70 years old malepresents with left foot cellulitis, foreign body and possible ischemia.continue with antibiotics as per ID team recommendation. Continue with IV hydration.follow-up blood culture final results vascular surgery team on the case and patient status post angiogram and cannulation of his peripheral arteries by vascular surgery. Resume his Levemir and NovoLog and insulin sliding scale Labs and medication were reviewed.. Continue same treatment. Continue with symptomatic treatment. Resume home medication. Monitor lytes and vitals. DVT and GI prophylaxis. Further recommendations depends on the clinical course of the patient DVT prophylaxis: Subcutaneous heparin GI Prophylaxis: Pepcid PT/OT: Pending Prognosis is guarded
[2020-05-27 06:58] LABS: Glucose,Whole Blood 228 mg/dL (75-99)
[2020-05-27 07:51] VITALS: RESP 16
[2020-05-27] MEDS: HEPARIN SODIUM,PORCINE 5,000 UNIT/ML 1 ML VIAL SQ SCH (09:17)
[2020-05-27] MEDS: FAMOTIDINE 20 MG TAB PO SCH (09:17)
[2020-05-27] MEDS: INSULIN DETEMIR (LEVEMIR) 100 UNIT/ML SYR SQ SCH (09:17)
[2020-05-27] MEDS: INSULIN ASPART (NovoLOG) 100 UNIT/ML VIAL SQ SCH ×4 (09:18→13:14)
[2020-05-27 12:02] LABS: Glucose,Whole Blood 190 mg/dL (75-99)
--- NOTE | 2020-05-27 12:33 | P.DS ---
Providers Date of admission: 05/22/20 22:23 Attending physician: José Luis Castillo MD Consults: 05/22/20 22:24 Consult Physician Routine Consulting Provider: Evelyne Vegas Consult Reason/Comments: Cellulitis, peripheral vascular disease Do you want consulting provider notified?: Yes 05/23/20 01:26 Consult Physician Urgent Consulting Provider: Nelson Powers Consult Reason/Comments: l foot cellulitis Do you want consulting provider notified?: Yes, Notify in am 05/26/20 20:27 Consult Physician Routine Consulting Provider: Greg Brooks Consult Reason/Comments: pre op evalu for bypass surgery as outpatient Do you want consulting provider notified?: Yes, Notify in am [facility] Diagnoses: -acute Left foot ischemia, Will need bypass surgery as an outpatient . Also Stress test prior to surgery -left foot cellulitis, with x-ray showing 4 m radiopaque foreign body between the third and fourth toes, possible needle -History of Hypertension, currently patient blood pressure is low normal, however patient is asymptomatic and stable for discharge -Inability to take care of himself, he has a legal guardian who wants him to be admitted to [facility] for placement -Diabetes mellitus -Osteoarthritis -Peripheral neuropathy -History of coronary artery disease status post stent placement Hospital course: This is a pleasant 70 years old male with past medical history of coronary artery disease status post stent placement, diabetes mellitus, GERD, hypertension, osteoarthritis. Patient presents because of the left foot redness, pain and swelling of 2 weeks. Patient was admitted for cellulitis of the left foot with possible foreign body of the foot from needle. Foot x-ray showing no acute osseous abnormality, 4 mm radiopaque foreign body between the third and fourth toes and suggestive of retained sponge and needle. His foot also was called and painful suspicious for ischemia, he is been evaluated by vascular surgery team, he underwent selective left femoral artery angiography with ultrasound-guided cannulation of the right femoral artery for his peripheral artery disease. He was treated also with pain medication, his pain control and his foot ischemia is a stable, I discussed the case with Dr. Vegas and she recommended to discharge the patient and follow-up with Dr. Aponte to on 05/30 femoral-popliteal bypass surgery. However patient will need cardiology clearance, I discussed the case with card brusher Dr. Verdugo who wrote him a prescription for stress this next week and he will see Dr. Cerda on 06/07 for appointment. Also patient will be discharged on 10 days of oral Keflex per ID team. His cellulitis of the left foot responded to cefazolin while in the hospital. Patient was cleared for discharge by all consults consults including vascular surgery, infectious disease team Problems and management plan were discussed with the patient and he verbalized understanding and acceptance Patient was found stable and can be discharged [facility]CF however he needs follow-up as an outpatient. Patient was instructed to follow up with PCP Dr. Gibbs within one week and patient agrees. Also patient was instructed to follow up with Dr. Alban george vascular surgery on 05/30 and with card brusher Dr. Cerda on 06/07 and he agrees with these 2 appointments Physical exam Gen: patient is a AAOx3, no distress CVS: S1-S2, RRR, no murmur Lungs: B/L CTA, no wheezing Abdomen: soft, no distention, no tenderness, positive bowel sounds Extremity: no leg edema or induration. Left foot is less red and call and painful Time spent more than 35 minutes Patient Condition at Discharge: Stable Plan - Discharge Summary Discharge Rx Participant: No New Discharge Prescriptions: New Cephalexin [Keflex] 500 mg PO Q6HR 10 Days #40 cap INSULIN ASPART (NovoLOG) [NovoLOG (formulary)] 8 unit SQ AC-TID #1 vial Famotidine [Pepcid] 20 mg PO BID #60 tab Acetaminophen Tab [Tylenol] 650 mg PO Q6HR PRN tab PRN Reason: Mild Pain Or Fever > 100.5 Continue Insulin Glargine,Hum.rec.anlog [Lantus Solostar] 40 unit SQ BID Discontinued Enalapril [Vasotec] 10 mg PO HS Insulin Lispro [humaLOG Kwikpen] 6 unit SQ AC-TID Discharge Medication List Insulin Glargine,Hum.rec.anlog [Lantus Solostar] 40 unit SQ BID 05/22/20 [History] Acetaminophen Tab [Tylenol] 650 mg PO Q6HR PRN tab 05/27/20 [Rx] Cephalexin [Keflex] 500 mg PO Q6HR 10 Days #40 cap 05/27/20 [Rx] Famotidine [Pepcid] 20 mg PO BID #60 tab 05/27/20 [Rx] INSULIN ASPART (NovoLOG) [NovoLOG (formulary)] 8 unit SQ AC-TID #1 vial 05/27/20 [Rx] Follow up Appointment(s)/Referral(s): Evangelina Galeas MD [Primary Care Provider] - 1-2 days Robinson Alamo MD [STAFF PHYSICIAN] - 06/07/20 3:15 pm Maldonado Webb DO [Doctor of Osteopathic Medicine] - 05/30/20 1:45 pm Anais Saldana, [NON-STAFF] - As Needed Discharge Disposition: HOME SELF-CARE
--- NOTE | 2020-05-27 12:39 | P.PN ---
Subjective Progress Note Date: 05/27/20 Principal diagnosis: Cellulitis of left foot Seen and examined without any acute changes through the night. He states he still has pain to the left foot, however redness has improved. His been afebrile. Objective - Vital Signs Vital signs: Vital Signs Temp 98.3 F 05/27/20 07:50 Pulse 59 L 05/27/20 07:50 Resp 16 05/27/20 07:50 BP 90/61 05/27/20 07:50 Pulse Ox 94 L 05/27/20 07:50 Intake & Output 05/26/20 05/27/20 05/27/20 18:59 06:59 18:59 Intake Total 1140 Output Total 1100 1400 Balance 40 -1400 Intake: IV 1140 Sodium Chloride 0.9% 1, 1040 000 ml @ 130 mls/hr IV . Q7H42M [facility] Rx#:[id number] ceFAZolin 2 gm In Sodium 100 Chloride 0.9% 50 ml @ 100 mls/hr IVPB Q8HR [facility] Rx# :[id number] Output: Urine 1100 1400 Other: Voiding Method Urinal Urinal - Exam General appearance: The patient is alert, oriented, in no acute distress. HET: Head is normocephalic and atraumatic. Neck: Supple without lymphadenopathy. Trachea midline. Extremities: No edema bilaterally. Palpable femoral pulses bilaterally. Left foot with improved redness, redness remains to left toes. Patient states he's not able to move his left toes due to pain. Neurological: No focal deficits. Strength and sensation are grossly intact. - Labs CBC & Chem 7: 05/26/20 06:21 05/26/20 06:21 Labs: Abnormal Lab Results - Last 24 Hours (Table) 05/26/20 05/26/20 05/26/20 Range/Units 11:05 17:17 20:20 POC Glucose (mg/dL) 245 H 185 H 73 L (75-99) mg/dL 05/27/20 Range/Units 06:56 POC Glucose (mg/dL) 228 H (75-99) mg/dL Microbiology - Last 24 Hours (Table) 05/24/20 06:35 Blood Culture - Preliminary Blood No Growth after 72 hours 05/24/20 06:53 Blood Culture - Preliminary Blood No Growth after 72 hours 05/23/20 23:05 Blood Culture - Preliminary Blood No Growth after 72 hours Assessment and Plan Assessment: 1. Bacteremia 2. Peripheral arterial disease, superficial femoral artery occlusion bilaterally 3. Claudication 4. History of insulin dependent diabetes mellitus 5. History of coronary artery disease 6. History of peripheral neuropathy 7. History of hypertension Plan: 1. Supportive care 2. Antibiotics per recommendations from infectious disease 3. Cardiology on consult for cardiac clearance 4. Patient may be discharged home from a vascular surgical standpoint 5. Patient will need to follow-up with Dr. Weinstein next for planned revascularization of his left lower extremity, vein mapping was completed The impression and plan of care has been dictated as directed. I performed a history and examination of this patient, discussed the same with the dictator. I agree with the dictator's note ,documented as a scribe. Any additional findings or plans will be noted.
[2020-05-27 15:30] VITALS: BP 88/64; PULSE 104; TEMP 98.5
[2020-05-27] MEDS ORDERED: ALPRAZolam 0.5 MG TAB PO ONE (16:24)
[2020-05-27 17:19] LABS: Glucose,Whole Blood 220 mg/dL (75-99)
--- NOTE | 2020-05-29 15:33 | P.VSCSTY ---
Greater Saphenous Vein Mapping This is bilateral lower extremity greater saphenous vein mapping. Date of service: 05/24/2020 Vein quality and ultrasound appearance: We see no intraluminal thrombus or wall changes. Vein size groin right : 6.1 x 5.5 groin left: 6.2 x 6.1 High thigh right: 4.6 x 3.7 high thigh left: 3.8 x 3.2 Mid thigh right: 4.4 x 3.4 mid thigh left: 3.8 x 3.3 Above-knee right: 3.8 x 3.4 above- knee left: 3.8 x 2.6 Below knee right: 3.0 x 2.1 below-knee left: 3.4 x 2.5 Mid calf right: 2.1 x 1.7 mid calf left: 3.1 x 2.7 Ankle right: 2.3 x 1.9 ankle left: 3.7 x 2.6 Impression: Usable bilateral greater saphenous veins..
--- NOTE | 2020-05-29 15:46 | P.ARTDOP ---
Arterial Doppler LOWER EXTREMITY ARTERIAL DOPPLER: DATE OF SERVICE: 05/23/2020 Reason for study: Left leg and foot pain. Doppler waveforms: Multiphasic at the right femoral. Atypical at the left femoral and right dorsalis pedis. All other areas are monophasic.. Pulse volume recording: []. Pressure gradients: Gradients at both sides at thigh level.. Ankle-brachial indices: 0.81 on the right and 0.47 on the left.. Toe brachial indices: 0.4 on the right on the right, not discernible on the left Impression: Suspect calcific wall disease bilaterally. Suspect moderate to severe bilateral fem-pop disease. Possible iliac component. Clinical correlation recommended..
== END 2020-05-27 17:37 | DRG 300 ==
LOC: EC 19:35 → 5NMEDONC 22:23 → 1SOBS 05-23 02:01 → 6NMEDSUR 05-23 15:41
PROVIDERS: ADMIT Internal Medicine; ATTEND Internal Medicine
PROC: B41G1ZZ Fluoroscopy of Left Lower Extremity Arteries using Low Osmolar Contrast (ICD-10-PCS; principal; 2020-05-24 09:30)
DX: E11.51 Type 2 diabetes mellitus with diabetic peripheral angiopathy without gangrene (principal); L03.116 Cellulitis of left lower limb; E87.1 Hypo-osmolality and hyponatremia; R78.81 Bacteremia; M79.672 Pain in left foot; Z79.82 Long term (current) use of aspirin; Z79.4 Long term (current) use of insulin; I25.10 Atherosclerotic heart disease of native coronary artery without angina pectoris; M19.90 Unspecified osteoarthritis, unspecified site; Z20.822 Contact with and (suspected) exposure to COVID-19; Z87.891 Personal history of nicotine dependence; E11.42 Type 2 diabetes mellitus with diabetic polyneuropathy; I11.9 Hypertensive heart disease without heart failure; Z95.5 Presence of coronary angioplasty implant and graft; I70.203 Unspecified atherosclerosis of native arteries of extremities, bilateral legs; E11.65 Type 2 diabetes mellitus with hyperglycemia
CPT/HCPCS: 36246; 36415; 75625; 75716; 76937; 80048; 80053; 80202; 80306; 82533; 82565; 83036; 83605; 83735; 84443; 85025; 85610; 85652; 85730; 86140; 87040; 87077; 87186; 87635; 93306; 93923; 93970; 96365; 96366; 96367; 96375; 99285

== ENCOUNTER 2020-07-25 13:49 | Inpatient (IN) | payer MEDICARE, OTHER ==
[2020-07-25] MEDS ORDERED: HYDROmorphone 1 MG/ML 1 ML SYRINGE IVP STA (14:17)
[2020-07-25] MEDS ORDERED: ONDANSETRON 4 MG/2 ML VIAL IVP STA (14:17)
[2020-07-25] MEDS ORDERED: SODIUM CHLORIDE 0.9% 500 ML 500 ML IV ONE (14:22)
--- NOTE | 2020-07-25 14:24 | ED ---
General Adult HPI - General Chief complaint: Extremity Problem,Nontraumatic Stated complaint: LFt foot pain Time Seen by Provider: 07/25/20 14:06 Source: patient Mode of arrival: wheelchair Limitations: no limitations - History of Present Illness Initial comments: 70-year-old male patient presents to the emergency department today for evaluation of left leg and foot pain. Patient has known arterial disease and is working on clearance to have a fem-pop bypass performed. States he is still needs stress test for cardiac clearance. States that he has wounds to the toes and the left heel which are becoming more black. Patient states the pain in his foot and leg are worsened significantly. Also reports worse swelling and calf pain. He denies any fever or chills. Denies chest pain, shortness of breath, or palpitations. Did see his primary care physician and Dr. Webb from vascular today and was told to come to the ER for possible admission. Patient denies any recent rash, cough, abdominal pain, nausea, vomiting, diarrhea, constipation, back pain, numbness, tingling, dizziness, weakness, hematuria, dysuria, urinary urgency, urinary frequency, headache, visual changes, or any other complaints. - Related Data Home Medications Medication Instructions Recorded Confirmed Insulin Glargine,Hum.rec.anlog 40 unit SQ BID 05/22/20 07/25/20 [Lantus Solostar] Famotidine [Pepcid] 20 mg PO BID PRN 07/25/20 07/25/20 Previous Rx's Medication Instructions Recorded INSULIN ASPART (NovoLOG) [NovoLOG 8 unit SQ AC-TID #1 vial 05/27/20 (formulary)] Allergies Allergy/AdvReac Type Severity Reaction Status Date / Time No Known Allergies Allergy Verified 07/25/20 16:25 Review of Systems ROS Statement: Those systems with pertinent positive or pertinent negative responses have been documented in the HPI. ROS Other: All systems not noted in ROS Statement are negative. Past Medical History Past Medical History: Coronary Artery Disease (CAD), Diabetes Mellitus, Eye Disorder, GERD/Reflux, Hypertension, Musculoskeletal Disorder, Osteoarthritis (OA) Additional Past Medical History / Comment(s): peripheral neuropathy,. spondilolithesis. disabled-moves slowly History of Any Multi-Drug Resistant Organisms: None Reported Past Surgical History: Heart Catheterization With Stent, Orthopedic Surgery, Tonsillectomy Additional Past Surgical History / Comment(s): lt knee surg. lt knee scope. [facility]ED[facility] Past Anesthesia/Blood Transfusion Reactions: No Reported Reaction Date of Last Stent Placement:: 2008 Past Psychological History: Anxiety, Depression Smoking Status: Former smoker Past Alcohol Use History: None Reported Past Drug Use History: None Reported - Past Family History Mother Family Medical History: Unable to Obtain General Exam Limitations: no limitations General appearance: alert, in no apparent distress, other (This is a well- developed, well-nourished adult male patient in no acute distress. Vital signs upon presentation temperature 97.9F, pulse 112, respirations 18, blood pressure 96/65, pulse ox 96% on room air.) Eye exam: Present: normal appearance, PERRL, EOMI. Absent: scleral icterus, conjunctival injection, periorbital swelling ENT exam: Present: normal exam, normal oropharynx, mucous membranes moist Respiratory exam: Present: normal lung sounds bilaterally. Absent: respiratory distress, wheezes, rales, rhonchi, stridor Cardiovascular Exam: Present: normal rhythm, tachycardia, normal heart sounds. Absent: systolic murmur, diastolic murmur, rubs, gallop, clicks GI/Abdominal exam: Present: soft, normal bowel sounds. Absent: distended, tenderness, guarding, rebound, rigid Extremities exam: Present: full ROM, tenderness (Left calf), normal capillary refill, other (There is nonpitting edema noted to the left foot and lower leg. There are blackened wounds to the third and fourth toes and over the heel. Diminished pulses.). Absent: normal inspection, pedal edema, joint swelling Neurological exam: Present: alert, oriented X3, CN II-XII intact Psychiatric exam: Present: normal affect, normal mood Skin exam: Present: warm, dry, intact, normal color. Absent: rash Course Vital Signs 07/25/20 07/25/20 07/25/20 14:01 16:08 17:27 Temperature 97.9 F Pulse Rate 112 H Respiratory 18 Rate Blood Pressure 96/65 81/57 94/73 O2 Sat by Pulse 96 Oximetry 07/25/20 17:59 Temperature Pulse Rate 97 Respiratory 18 Rate Blood Pressure 89/70 O2 Sat by Pulse 97 Oximetry Procedures - Sepsis Sepsis Focused Exam #1 Time Sepsis Criteria Met: 14:45 Sepsis Focused Exam Date: 07/25/20 Sepsis Focused Exam Time: 18:22 Sepsis Focused Exam Complete: Yes Vital Signs & RN Notes Reviewed: Yes Capillary Refill: < 2 Seconds: Fingers, > 2 Seconds: Toes (Arterial disease) Peripheral Pulses: Normal: Radial (R), Radial (L) Skin Color: Normal for Patient Respiratory Exam: normal lung sounds Cardiovascular Exam: regular rate, normal rhythm Medical Decision Making - Medical Decision Making 70-year-old male patient with history of arterial occlusion specifically femoral and popliteal presents to the emergency department today for evaluation of worsening pain, wounds, swelling to the left lower extremity. Patient is currently waiting for cardiac clearance to have a fem-pop bypass. Physical examination did reveal wounds to the toes and heel on the left foot. There is edema noted to the foot and lower leg. Labs reviewed and did reveal white blood cell count at 16.8, sodium 130, glucose 614, lactic acid 3.4. Acetone negative. COVID-19 negative. Did perform venous ultrasound of the left lower extremity was negative. Patient's blood pressures were low. He was given 2.5 L of normal saline per sepsis protocol. Lactic acid improved to 1.8, blood pressures remained low. He was given Unasyn and vancomycin. Review of records show that this is around patient's baseline, his are within normal ranges. He'll be admitted to the hospital for further evaluation by cardiology, vascular, and infectious disease. Dr. Mcghee is accepting. Case discussed with my attending Dr. London. - Lab Data Result diagrams: 07/25/20 14:27 07/25/20 14:27 Lab Results 07/25/20 07/25/20 07/25/20 Range/Units 14:27 14:27 14:27 WBC 16.8 H (3.8-10.6) k/uL RBC 4.22 L (4.30-5.90) m/uL Hgb 12.2 L (13.0-17.5) gm/dL Hct 39.2 (39.0-53.0) % MCV 93.0 (80.0-100.0) fL MCH 28.9 (25.0-35.0) pg MCHC 31.1 (31.0-37.0) g/dL RDW 13.3 (11.5-15.5) % Plt Count 453 H (150-450) k/uL MPV 7.5 Neutrophils % 85 % Lymphocytes % 9 % Monocytes % 3 % Eosinophils % 2 % Basophils % 0 % Neutrophils # 14.3 H (1.3-7.7) k/uL Lymphocytes # 1.5 (1.0-4.8) k/uL Monocytes # 0.4 (0-1.0) k/uL Eosinophils # 0.4 (0-0.7) k/uL Basophils # 0.0 (0-0.2) k/uL Sodium 130 L (137-145) mmol/L Potassium 5.1 (3.5-5.1) mmol/L Chloride 98 (98-107) mmol/L Carbon Dioxide 22 (22-30) mmol/L Anion Gap 10 mmol/L BUN 15 (9-20) mg/dL Creatinine 0.67 (0.66-1.25) mg/dL Est GFR (CKD-EPI)AfAm >90 (>60 ml/min/1.73 sqM) Est GFR (CKD-EPI)NonAf >90 (>60 ml/min/1.73 sqM) Glucose 614 H* (74-99) mg/dL POC Glucose (mg/dL) (75-99) mg/dL POC Glu Civil [employer] Worker ID Lactic Ac Sepsis Rflx Plasma Lactic Acid Kareem 3.4 H* (0.7-2.0) mmol/L Calcium 8.8 (8.4-10.2) mg/dL Total Bilirubin 0.4 (0.2-1.3) mg/dL AST 40 (17-59) U/L ALT 21 (4-49) U/L Alkaline Phosphatase 182 H (38-126) U/L Total Protein 6.3 (6.3-8.2) g/dL Albumin 3.5 (3.5-5.0) g/dL Acetone, Qual (Negative) Coronavirus (PCR) (Not Detectd) 07/25/20 07/25/20 07/25/20 Range/Units 14:27 15:06 15:41 WBC (3.8-10.6) k/uL RBC (4.30-5.90) m/uL Hgb (13.0-17.5) gm/dL Hct (39.0-53.0) % MCV (80.0-100.0) fL MCH (25.0-35.0) pg MCHC (31.0-37.0) g/dL RDW (11.5-15.5) % Plt Count (150-450) k/uL MPV Neutrophils % % Lymphocytes % % Monocytes % % Eosinophils % % Basophils % % Neutrophils # (1.3-7.7) k/uL Lymphocytes # (1.0-4.8) k/uL Monocytes # (0-1.0) k/uL Eosinophils # (0-0.7) k/uL Basophils # (0-0.2) k/uL Sodium (137-145) mmol/L Potassium (3.5-5.1) mmol/L Chloride (98-107) mmol/L Carbon Dioxide (22-30) mmol/L Anion Gap mmol/L BUN (9-20) mg/dL Creatinine (0.66-1.25) mg/dL Est GFR (CKD-EPI)AfAm (>60 ml/min/1.73 sqM) Est GFR (CKD-EPI)NonAf (>60 ml/min/1.73 sqM) Glucose (74-99) mg/dL POC Glucose (mg/dL) >600 H (75-99) mg/dL POC Glu [employer] Worker ID Willing, Uzma Lactic Ac Sepsis Rflx Y Plasma Lactic Acid Kareem (0.7-2.0) mmol/L Calcium (8.4-10.2) mg/dL Total Bilirubin (0.2-1.3) mg/dL AST (17-59) U/L ALT (4-49) U/L Alkaline Phosphatase (38-126) U/L Total Protein (6.3-8.2) g/dL Albumin (3.5-5.0) g/dL Acetone, Qual Negative (Negative) Coronavirus (PCR) (Not Detectd) 07/25/20 07/25/20 Range/Units 16:54 17:40 WBC (3.8-10.6) k/uL RBC (4.30-5.90) m/uL Hgb (13.0-17.5) gm/dL Hct (39.0-53.0) % MCV (80.0-100.0) fL MCH (25.0-35.0) pg MCHC (31.0-37.0) g/dL RDW (11.5-15.5) % Plt Count (150-450) k/uL MPV Neutrophils % % Lymphocytes % % Monocytes % % Eosinophils % % Basophils % % Neutrophils # (1.3-7.7) k/uL Lymphocytes # (1.0-4.8) k/uL Monocytes # (0-1.0) k/uL Eosinophils # (0-0.7) k/uL Basophils # (0-0.2) k/uL Sodium (137-145) mmol/L Potassium (3.5-5.1) mmol/L Chloride (98-107) mmol/L Carbon Dioxide (22-30) mmol/L Anion Gap mmol/L BUN (9-20) mg/dL Creatinine (0.66-1.25) mg/dL Est GFR (CKD-EPI)AfAm (>60 ml/min/1.73 sqM) Est GFR (CKD-EPI)NonAf (>60 ml/min/1.73 sqM) Glucose (74-99) mg/dL POC Glucose (mg/dL) (75-99) mg/dL POC Glu [employer] Worker ID Lactic Ac Sepsis Rflx Plasma Lactic Acid Kareem 1.8 (0.7-2.0) mmol/L Calcium (8.4-10.2) mg/dL Total Bilirubin (0.2-1.3) mg/dL AST (17-59) U/L ALT (4-49) U/L Alkaline Phosphatase (38-126) U/L Total Protein (6.3-8.2) g/dL Albumin (3.5-5.0) g/dL Acetone, Qual (Negative) Coronavirus (PCR) Not Detected (Not Detectd) - Radiology Data Radiology results: report reviewed No ultrasound evidence for acute DVT in the left lower extremity. No significant change from recent ultrasound. Disposition Clinical Impression: Sepsis, Wound of left foot, Hyperglycemia Disposition: ADMITTED IP TO THIS [facility] Condition: Serious Decision to Admit Reason: Admit from EC Decision Date: 07/25/20 Decision Time: 16:11
[2020-07-25 14:51] LABS: Basophils % (A) 0 %; Eosinophils # (A) 0.4 k/uL (0-0.7); Eosinophils % (A) 2 %; HCT 39.2 % (39.0-53.0); HGB 12.2 gm/dL (13.0-17.5); Lymphocytes # (A) 1.5 k/uL (1.0-4.8); Lymphocytes % (A) 9 %; MCH 28.9 pg (25.0-35.0); MCHC 31.1 g/dL (31.0-37.0); Mean Platelet Volume 7.5; Monocytes # (A) 0.4 k/uL (0-1.0); Monocytes % (A) 3 %; Neutrophils # (A) 14.3 k/uL (1.3-7.7); Neutrophils % (A) 85 %; Platelet Count 453 k/uL (150-450); RBC 4.22 m/uL (4.30-5.90); RDW 13.3 % (11.5-15.5); WBC 16.8 k/uL (3.8-10.6)
[2020-07-25] MEDS ORDERED: VANCOMYCIN IV PER PHARMACY 1 EACH MISC MISCELLANE PRN (14:52)
[2020-07-25] MEDS ORDERED: AMPICILLIN-SULBACTAM 3 GM in SODIUM CHLORIDE 0.9% 100 ML IVPB STA (14:52)
[2020-07-25] MEDS ORDERED: SODIUM CHLORIDE 0.9% 1,000 ML IV ONE ×2 (14:54→16:12)
[2020-07-25] MEDS ORDERED: VANCOMYCIN 1,750 MG in SODIUM CHLORIDE 0.9% 500 ML 500 ML IVPB STA (14:57)
[2020-07-25 15:11] LABS: ALT 21 U/L (4-49); AST 40 U/L (17-59); African American GFR (CKD) >90 (>60 ml/min/1.73 sqM); Albumin 3.5 g/dL (3.5-5.0); Alkaline Phosphatase 182 U/L (38-126); Anion Gap 10 mmol/L; Blood Urea Nitrogen 15 mg/dL (9-20); Calcium 8.8 mg/dL (8.4-10.2); Carbon Dioxide 22 mmol/L (22-30); Chloride 98 mmol/L (98-107); Non-African American GFR(CKD) >90 (>60 ml/min/1.73 sqM); Potassium 5.1 mmol/L (3.5-5.1); Sodium 130 mmol/L (137-145); Total Bilirubin 0.4 mg/dL (0.2-1.3); Total Protein 6.3 g/dL (6.3-8.2)
[2020-07-25 15:22] LABS: Glucose 614 mg/dL (74-99)
--- NOTE | 2020-07-25 15:24 | US ---
EXAMINATION TYPE: US venous doppler duplex LE LT DATE OF EXAM: 07/25/2020 2:18 PM COMPARISON: US May 23, 2020 CLINICAL HISTORY: Left leg pain and swelling. SIDE PERFORMED: Left TECHNIQUE: The lower extremity deep venous system is examined utilizing real time linear array sonog aicha with graded compression, doppler sonography and color-flow sonography. VESSELS IMAGED: Common Femoral Vein Deep Femoral Vein Greater Saphenous Vein * Femoral Vein Popliteal Vein Small Saphenous Vein * Proximal Calf Veins (* superficial vessels) Left Leg: Appears negative for DVT Grayscale, color doppler, spectral doppler imaging performed of the deep veins of the left lower extr emity. There is normal flow, compressibility, vascular waveforms. IMPRESSION: No ultrasound evidence for acute DVT in the left lower extremity. No significant change from recent ultrasound.
[2020-07-25 15:43] LABS: Glucose,Whole Blood >600 mg/dL (75-99)
[2020-07-25] MEDS ORDERED: AMPICILLIN-SULBACTAM 3 GM in SODIUM CHLORIDE 0.9% 100 ML IVPB SCH (16:00)
[2020-07-25] MEDS ORDERED: NALOXONE 0.4 MG/ML 1 ML VIAL IV PRN (16:08)
[2020-07-25] MEDS ORDERED: INSULIN ASPART (NovoLOG) 100 UNIT/ML VIAL SQ STA (16:08)
[2020-07-25] MEDS: SODIUM CHLORIDE 0.9% 1,000 ML IV SCH (16:08)
[2020-07-25] MEDS ORDERED: ONDANSETRON 4 MG/2 ML VIAL IVP PRN (16:08)
[2020-07-25 18:33] LABS: Glucose,Whole Blood 362 mg/dL (75-99)
[2020-07-25] MEDS ORDERED: LORazepam 2 MG/ML INJ IV STA ×2 (19:56→21:07)
[2020-07-25 20:06] LABS: Glucose,Whole Blood 276 mg/dL (75-99)
[2020-07-25] MEDS: HYDROmorphone 1 MG/ML 1 ML SYRINGE IVP PRN (20:07)
[2020-07-25] MEDS: INSULIN ASPART (NovoLOG) 100 UNIT/ML VIAL SQ SCH (20:10)
--- NOTE | 2020-07-25 20:46 | P.HPIM ---
History of Present Illness H&P Date: 07/25/20 Chief Complaint: Left foot pain History of presenting complaint: This is a 70-year-old patient who follows with Dr. Fox. Patient lives by himself. Patient is of the left foot and is due for a bypass by Dr. Aponte of the vascular surgeon. He was admitted for cardiology clearance. Patient's left heel wound and told wounds have been progressively getting worse in terms of increasing pain and difficulty to walk. Patient's appetite is okay. Denies any fever and chills. Chronic stable medical conditions include diabetes mellitus requiring insulin, coronary artery disease, peripheral neuropathy osteoarthritis. Patient has known peripheral arterial disease. Review of systems: GEN.: None EYES: None HEENT: None NECK: None RESPIRATORY: None CARDIOVASCULAR: None GASTROINTESTINAL: None GENITOURINARY: None MUSCULOSKELETAL: Joint pains, wounds on the left heel and toe LYMPHATICS: None HEMATOLOGICAL: None PSYCHIATRY: None NEUROLOGICAL: Peripheral neuropathy Past medical history to include: Coronary artery disease with stent, diabetes, GERD, hypertension, prostatitis, peripheral neuropathy, anxiety depression Social history: Denies alcohol. Lives alone. Former smoker. Family history: Reviewed, noncontributory to presentation Physical examination: VITAL SIGNS: 97.9, 97, 18, 96/65, 96% room air GENERAL: BMI 29.8, laying in bed, awake. EYES: Pupils equal. Conjunctiva normal. HEENT: External appearance of nose and ears normal, oral cavity grossly normal. NECK: JVD not raised; masses not palpable. HEART: First and second heart sounds are normal; no edema. LUNGS:[ Respiratory rate normal; decreased breath sounds. ABDOMEN: Soft, nontender, liver spleen not palpable, no masses palpable. PSYCH: Alert and oriented x3; mood and affect normal. NEUROLOGICAL: [Cranial nerves grossly intact; no facial asymmetry, decreased sensation distally MUSCULOSKELETAL: Patient's code wound to the left fourth toe discolored tender and also one on the left heel. Absent dorsalis pedis LYMPHATICS: No lymph nodes palpable in the axilla and neck INVESTIGATIONS, reviewed in the clinical context: WBC 16.8 hemoglobin 12.2 platelets 453 sodium 1:30 potassium 5.1 creatinine 0.67 Glucose 614 lactic acid 3.4 Serum acetone negative Coronavirus [PCR: Not detected Doppler ultrasound of left lower extremity: Negative for DVT Assessment and plan: -Acute on chronic left foot wounds present on the toes and left heel secondary to poor circulation/peripheral arterial disease. Patient is awaiting bypass was awaiting a cardiology clearance. Symptoms have gotten worse precipitating the admission. Possible secondary infection with possible sepsis. IV fluids. Vancomycin. IV Unasyn -Significant peripheral arterial disease Start patient on aspirin, Lipitor -Coronary artery disease with stent. Patient has no active cardiac symptoms Continue with aspirin. Check 2-D echo. Lipitor -Diabetic peripheral neuropathy -Diabetes mellitus type 2, chronically on insulin Uncontrolled with diabetic nonketotic hyperosmolar hyperglycemia IV fluids. Follow Accu-Cheks -GERD Pepcid -Lactic acidosis possibly combination of sepsis and type II IV fluids, antibiotics Consultations made to cardiology, vascular surgery, infectious disease. Care was discussed with the patient. Questions answered. Repeat labs in the morning. EKG, chest x-ray pending Given the complexity and severity of patient's condition expect the patient to be in the hospital at least for 2 overnights Past Medical History Past Medical History: Coronary Artery Disease (CAD), Diabetes Mellitus, Eye Disorder, GERD/Reflux, Hypertension, Musculoskeletal Disorder, Osteoarthritis (OA) Additional Past Medical History / Comment(s): peripheral neuropathy,. spondilolithesis. disabled-moves slowly History of Any Multi-Drug Resistant Organisms: None Reported Past Surgical History: Heart Catheterization With Stent, Orthopedic Surgery, Tonsillectomy Additional Past Surgical History / Comment(s): lt knee surg. lt knee scope. [facility]ED[facility] Past Anesthesia/Blood Transfusion Reactions: No Reported Reaction Date of Last Stent Placement:: 2008 Past Psychological History: Anxiety, Depression Smoking Status: Former smoker Past Alcohol Use History: None Reported Past Drug Use History: None Reported - Past Family History Mother Family Medical History: Unable to Obtain Medications and Allergies Home Medications Medication Instructions Recorded Confirmed Type Insulin Glargine,Hum.rec.anlog 40 unit SQ BID 05/22/20 07/25/20 History [Lantus Solostar] INSULIN ASPART (NovoLOG) [NovoLOG 8 unit SQ AC-TID #1 vial 05/27/20 07/25/20 Rx (formulary)] Famotidine [Pepcid] 20 mg PO BID PRN 07/25/20 07/25/20 History Allergies Allergy/AdvReac Type Severity Reaction Status Date / Time No Known Allergies Allergy Verified 07/25/20 16:25 Physical Exam Vitals: Vital Signs Temp Pulse Resp BP Pulse Ox 07/25/20 17:59 97 18 89/70 97 07/25/20 17:27 94/73 07/25/20 16:08 81/57 07/25/20 14:01 97.9 F 112 H 18 96/65 96 Intake and Output 07/25/20 07/25/20 07/25/20 06:59 14:59 22:59 Other: Weight 99.79 kg Results CBC & Chem 7: 07/25/20 14:27 07/25/20 14:27 Labs: Abnormal Lab Results - Last 24 Hours (Table) 07/25/20 07/25/20 07/25/20 Range/Units 14:27 14:27 14:27 WBC 16.8 H (3.8-10.6) k/uL RBC 4.22 L (4.30-5.90) m/uL Hgb 12.2 L (13.0-17.5) gm/dL Plt Count 453 H (150-450) k/uL Neutrophils # 14.3 H (1.3-7.7) k/uL Sodium 130 L (137-145) mmol/L Glucose 614 H* (74-99) mg/dL POC Glucose (mg/dL) (75-99) mg/dL Plasma Lactic Acid Kareem 3.4 H* (0.7-2.0) mmol/L Alkaline Phosphatase 182 H (38-126) U/L 07/25/20 07/25/20 07/25/20 Range/Units 15:41 18:31 20:04 WBC (3.8-10.6) k/uL RBC (4.30-5.90) m/uL Hgb (13.0-17.5) gm/dL Plt Count (150-450) k/uL Neutrophils # (1.3-7.7) k/uL Sodium (137-145) mmol/L Glucose (74-99) mg/dL POC Glucose (mg/dL) >600 H 362 H 276 H (75-99) mg/dL Plasma Lactic Acid Kareem (0.7-2.0) mmol/L Alkaline Phosphatase (38-126) U/L
--- NOTE | 2020-07-25 22:04 | XR ---
EXAMINATION: XR chest 2V DATE AND TIME: 07/25/2020 8:59 PM CLINICAL INDICATION: PHH; Preop-previous smoker TECHNIQUE: Departmental protocol COMPARISON: 08/27/2012 FINDINGS: Technical factors include the fact that the overlying soft tissues are prominent, and the diaphragms are mildly elevated consistent with low lung inflation at the moment of x-ray exposure. The lungs appear to be clear. The pleural spaces are negative. The cardiac silhouette is not enlarged. The remainder of the mediastinal silhouette is unremarkable. The skeletal structures and soft tissues are negative for acute findings. IMPRESSION: NO ACUTE PROCESS.
--- NOTE | 2020-07-25 23:23 | CT ---
EXAMINATION TYPE: CT brain keilaine wo con DATE OF EXAM: 07/25/2020 COMPARISON: CT brain 08/27/2012 HISTORY: Confusion CT DLP: mGycm Automated exposure control for dose reduction was used. Images obtained from the skull base to T1 vertebra without contrast. Images obtained of the brain wit hout contrast. There is diffuse cerebral atrophy. There is no mass effect nor midline shift. There is no sign of int racranial hemorrhage. The calvarium is intact. There is no evidence of a mass. Cervical vertebra have normal alignment. There is degenerative disc space narrowing at C5-6 and C6-7 with spur formation. There is multilevel hypertrophic facet arthropathy. Prevertebral soft tissues ar e intact. The skull base is intact. There is endplate spur formation with some stenosis at C5-6 and C 6-7. IMPRESSION: Spondylotic changes in the cervical spine. No fracture. cervical spinal stenosis. Cerebral atrophy. No acute intracranial abnormality. Atrophy slightly increased compared to old exam.
[2020-07-26] MEDS: AMPICILLIN-SULBACTAM 3 GM in SODIUM CHLORIDE 0.9% 100 ML IVPB SCH ×4 (00:30→22:48)
[2020-07-26] MEDS: HYDROmorphone 1 MG/ML 1 ML SYRINGE IVP PRN ×4 (00:31→21:29)
[2020-07-26] MEDS: LORazepam 2 MG/ML INJ IV PRN (01:22)
[2020-07-26] MEDS ORDERED: VANCOMYCIN 1,750 MG in SODIUM CHLORIDE 0.9% 500 ML 500 ML IVPB SCH (05:00)
[2020-07-26] MEDS: SODIUM CHLORIDE 0.9% 1,000 ML IV SCH ×4 (05:03→20:28)
[2020-07-26 06:42] LABS: Basophils % (A) 0 %; Eosinophils # (A) 0.4 k/uL (0-0.7); Eosinophils % (A) 2 %; HCT 33.9 % (39.0-53.0); HGB 11.5 gm/dL (13.0-17.5); Lymphocytes # (A) 2.3 k/uL (1.0-4.8); Lymphocytes % (A) 13 %; MCH 30.4 pg (25.0-35.0); MCHC 33.9 g/dL (31.0-37.0); MCV 89.6 fL (80.0-100.0); Mean Platelet Volume 7.5; Monocytes # (A) 0.7 k/uL (0-1.0); Monocytes % (A) 4 %; Neutrophils # (A) 14.1 k/uL (1.3-7.7); Neutrophils % (A) 80 %; Platelet Count 410 k/uL (150-450); RBC 3.78 m/uL (4.30-5.90); RDW 12.9 % (11.5-15.5); WBC 17.7 k/uL (3.8-10.6)
[2020-07-26 06:57] LABS: ALT 20 U/L (4-49); AST 46 U/L (17-59); African American GFR (CKD) >90 (>60 ml/min/1.73 sqM); Albumin 3.3 g/dL (3.5-5.0); Alkaline Phosphatase 118 U/L (38-126); Anion Gap 6 mmol/L; Blood Urea Nitrogen 9 mg/dL (9-20); Calcium 8.3 mg/dL (8.4-10.2); Carbon Dioxide 28 mmol/L (22-30); Chloride 102 mmol/L (98-107); Glucose 63 mg/dL (74-99); Non-African American GFR(CKD) >90 (>60 ml/min/1.73 sqM); Potassium 3.3 mmol/L (3.5-5.1); Sodium 136 mmol/L (137-145); Total Bilirubin 0.7 mg/dL (0.2-1.3); Total Protein 6.2 g/dL (6.3-8.2)
[2020-07-26] MEDS: ENOXAPARIN 40 MG/0.4 ML SYRINGE SQ SCH ×2 (08:49→09:18)
[2020-07-26] MEDS: INSULIN ASPART (NovoLOG) 100 UNIT/ML VIAL SQ SCH ×5 (08:49→20:27)
--- NOTE | 2020-07-26 09:48 | P.CNNES ---
History of Present Illness Consult date: 07/26/20 Requesting physician: Nathaniel Arizmendi Reason for Consult: confusion History of Present Illness: This is a 70-year-old gentleman with medical history of diabetes mellitus, coronary artery disease, peripheral arterial disease, hypertension, peripheral neuropathy who presented to the emergency department on 07/25/2020 for left leg and foot pain. Neurology is consulted for altered mental status. Some of the history is obtained from medical record as well as the ICU nurse. Patient stated that to the ED that she has wounds to the left heel and toes and becoming more black and she feel it's progressively with time. She is also having swelling and calf pain. It seems the patient has known history of peripheral arterial disease and needs clearance for family-pop bypass. Per the patient's nurse, she was notified that the last night the patient the was confused and had a fall and that is why they did a CT of the head and CT cervical spine. There is no seizure-like activity that the was witnessed: No jerk in of any of the extremities. On presentation the hospital the patient white blood cell was 16.8 and the was repeated and it was 17.7. Her initial serum glucose is 614 the POC glucose is more than 600. Most recent POC glucose is 276. The sodium is 130 on presentation. Acetone is negative AST is 40 and ALTs 21 which is normal. The BUN 15 and creatinine is 0.67. CT of the head is reported as cerebral atrophy. No acute intracranial abnormality. Atrophy slightly increased compared to old exam. CT of the cervical spine is reported as spondylitic changes in the cervical spine. No fracture. Cervical spine stenosis. In the body of the report it is mentioned that there is degenerative disc space narrowing at the C5-C6 and C6-C7 was perforation. I personally could not review the CT of the head or cervical spine images because issues with that system Upon reviewing patient's medications seem to the patient received allotted once in the ED and 2 mg Ativan overall which can affect mentation Review of Systems Review of system: The 12 point system was reviewed and apparent positive and negative per HPI. Past Medical History Past Medical History: Coronary Artery Disease (CAD), Diabetes Mellitus, Eye Disorder, GERD/Reflux, Hypertension, Musculoskeletal Disorder, Osteoarthritis (OA) Additional Past Medical History / Comment(s): peripheral neuropathy,. spondilolithesis. disabled-moves slowly History of Any Multi-Drug Resistant Organisms: None Reported Past Surgical History: Heart Catheterization With Stent, Orthopedic Surgery, Ton sillectomy Additional Past Surgical History / Comment(s): lt knee surg. lt knee scope. [facility] Past Anesthesia/Blood Transfusion Reactions: No Reported Reaction Date of Last Stent Placement:: 2008 Past Psychological History: Anxiety, Depression Smoking Status: Former smoker Past Alcohol Use History: None Reported Past Drug Use History: None Reported - Past Family History Mother Family Medical History: Unable to Obtain Medications and Allergies Home Medications Medication Instructions Recorded Confirmed Type Insulin Glargine,Hum.rec.anlog 40 unit SQ BID 05/22/20 07/25/20 History [Lantus Solostar] INSULIN ASPART (NovoLOG) [NovoLOG 8 unit SQ AC-TID #1 vial 05/27/20 07/25/20 Rx (formulary)] Famotidine [Pepcid] 20 mg PO BID PRN 07/25/20 07/25/20 History Allergies Allergy/AdvReac Type Severity Reaction Status Date / Time No Known Allergies Allergy Verified 07/25/20 16:25 Physical Examination - Vital Signs Vital Signs: Vital Signs Temp Pulse Resp BP Pulse Ox 07/26/20 05:00 100 18 110/78 96 07/26/20 02:00 102 H 20 117/76 95 07/26/20 01:00 96 16 102/74 97 07/25/20 23:02 105 H 20 100/76 96 07/25/20 22:00 16 98/69 98 07/25/20 21:00 98 18 91/64 07/25/20 20:00 99 18 103/69 95 07/25/20 17:59 97 18 89/70 97 07/25/20 17:27 94/73 07/25/20 16:08 81/57 07/25/20 14:01 97.9 F 112 H 18 96/65 96 GENERAL: The patient is lying in bed and is not in acute distress. CHEST: The heart rate is regular rate rhythm. No murmurs to auscultation. LUNG: Clear to auscultation bilaterally no wheezing noted throughout. Not labored breathing. ABDOMEN/GI: Bowel sounds present in all 4 quadrants. No tenderness to palpation throughout. INTEGUMENTARY: Has erythema, redness and blackish discoloration of the left 2nd/3rd toe. NEUROLOGICAL: Higher mental function: The patient is drowsy but awakeable to voice. He is oriented to self and time. Regarding place with options he correctly stated he was in the hospital. He correctly name pen and watch. Patient is following s imple and even complex (touch his ear and sticking out tongue) commands. No aphasia and no neglect. Cranial nerves: The pupils are round, equal and reactive to light. Visual pritchett are full to confrontation throughout. Extraocular movement is he was tracking me throughout the room and no obvious nystagmus. Facial sensation is normal to touch throughout. The facial strength is normal throughout. Hearing is moderately decreased bilaterally to hand rub. Tongue is midline and moved [id number] without any difficulty. Has mild dysarthria is noted. Shoulder shrug is normal bilaterally. Motor: Gait is deferred because of cooperation. The strength is 5 over the bilateral upper extremities and moving bilateral lower extremities above gravity and no focality noted. Normal tone and bulk. Cerebellum: Could not assess because of cooperation. Sensation: Sensation is normal to touch throughout. Reflexes (right/left): 1+ bilateral aknles, right knee 3+. Otherwise 2+ throught. Plantars are mute bilaterally. Results Patient calcium is 8.8 which is normal. [place] virus PCR was not detected. - Laboratory Findings CBC and BMP: 07/26/20 06:30 07/26/20 06:30 Abnormal Lab Findings: Abnormal Labs 07/25/20 07/25/20 07/25/20 14:27 14:27 14:27 WBC 16.8 H RBC 4.22 L Hgb 12.2 L Hct Plt Count 453 H Neutrophils # 14.3 H Sodium 130 L Potassium Creatinine Glucose 614 H* POC Glucose (mg/dL) Plasma Lactic Acid Kareem 3.4 H* Calcium Alkaline Phosphatase 182 H Total Protein Albumin 07/25/20 07/25/20 07/25/20 15:41 18:31 20:04 WBC RBC Hgb Hct Plt Count Neutrophils # Sodium Potassium Creatinine Glucose POC Glucose (mg/dL) >600 H 362 H 276 H Plasma Lactic Acid Kareem Calcium Alkaline Phosphatase Total Protein Albumin 07/26/20 07/26/20 06:30 06:30 WBC 17.7 H RBC 3.78 L Hgb 11.5 L Hct 33.9 L Plt Count Neutrophils # 14.1 H Sodium 136 L Potassium 3.3 L Creatinine 0.64 L Glucose 63 L POC Glucose (mg/dL) Plasma Lactic Acid Kareem Calcium 8.3 L Alkaline Phosphatase Total Protein 6.2 L Albumin 3.3 L Assessment and Plan Assessment: Altered mental status likely due to metabolic encephalopathy (nonketotic hyperglycemia (sugar on presentation of 614), septic encephalopathy from left heel toe infection and medication effect (received Ativan and Dilaudid). Does not seem like a seizure. Nonketotic hyperglycemia---improving Acute on chronic left foot wound (left heel and toes) with likely sepsis Likely sepsis likely due to left foot wound infection (with black discoloration of left 2nd and 3rd toe and erythema and warm touch over the left foot) Cervical spondylosis (over C5-C6 and C6-C7 per CT cervical report) History of peripheral artery disease History of coronary artery disease status post stent Diabetic peripheral neuropathy Diabetes mellitus Hypertension Plan: CT of the head is reported as cerebral atrophy. No acute intracranial abnormality. Atrophy slightly increased compared to old exam. CT of the cervical spine is reported as spondylitic changes in the cervical spine. No fracture. Cervical spine stenosis. In the body of the report it is mentioned that there is degenerative disc space narrowing at the C5-C6 and C6-C7 was perforation. I personally could not review the CT of the head or cervical spine images because issues with that system EEG is ordered. Will not start the patient on anti-epileptic drug unless there is epileptiform discharges or seizure on the EEG. Please avoid any sedation/narcotics if possible that will affect patient neurological exam. Infection disease team is on board. Vascular surgery team is consulted We'll defer the rest of the medical management to the primary team. The plan is discussed with the patient's nurse. Thank you for the consultation. UPDATE: EEG: Normal routine EEG. There are no focal slowing, epileptiform discharges or seizure on the EEG. There is no further neurological work-up. Neurology will sign off. Please reconsult if needed. William Farris M.D. Neuro-hospitalist Time with Patient: Greater than 30
[2020-07-26 09:56] LABS: Glucose,Whole Blood 84 mg/dL (75-99)
[2020-07-26] MEDS: VANCOMYCIN 1,750 MG in SODIUM CHLORIDE 0.9% 500 ML 500 ML IVPB SCH ×2 (10:06→21:27)
--- NOTE | 2020-07-26 12:28 | P.CRDCN ---
History of Present Illness Consult date: 07/26/20 Chief complaint: Preoperative cardiac assessment History of present illness: This is a very pleasant 70-year-old gentleman with a past medical history significant for coronary artery disease and prior stenting of the left circumflex in 2007 as well as smoking and diabetes and hypertension and dyslipidemia who presented to the emergency department complaining of left foot discomfort. We asked to see the patient in a consultation for further evaluation before potential surgery on the left foot. The patient is a poor historian and he is lethargic. As a matter of fact he was seen by the neurology service and he was diagnosed with metabolic encephalopathy. He is unable to provide any history. No indication that he was experiencing any symptoms of chest pain or chest discomfort or any shortness of breath. The on examination he does have critical limb ischemia of the left foot with nonhealing ulcers and chronic skin changes was identified on the left foot. The EKG showed sinus rhythm without significant ST or T-wave abnormalities. Cardiac enzymes were not checked. The chest x-ray was reviewed and came in to be unremarkable. The patient is known to have occlusive peripheral arterial disease and he underwent revascularization in the past. Currently he is on antibiotic for possible osteomyelitis related to critical limb ischemia. Past Medical History Past Medical History: Coronary Artery Disease (CAD), Diabetes Mellitus, Eye Disorder, GERD/Reflux, Hypertension, Musculoskeletal Disorder, Osteoarthritis (OA) Additional Past Medical History / Comment(s): peripheral neuropathy,. spondilolithesis. disabled-moves slowly History of Any Multi-Drug Resistant Organisms: None Reported Past Surgical History: Heart Catheterization With Stent, Orthopedic Surgery, Tonsillectomy Additional Past Surgical History / Comment(s): lt knee surg. lt knee scope. [facility] Past Anesthesia/Blood Transfusion Reactions: No Reported Reaction Date of Last Stent Placement:: 2008 Past Psychological History: Anxiety, Depression Smoking Status: Former smoker Past Alcohol Use History: None Reported Past Drug Use History: None Reported - Past Family History Mother Family Medical History: Unable to Obtain Medications and Allergies Home Medications Medication Instructions Recorded Confirmed Type Insulin Glargine,Hum.rec.anlog 40 unit SQ BID 05/22/20 07/25/20 History [Lantus Solostar] INSULIN ASPART (NovoLOG) [NovoLOG 8 unit SQ AC-TID #1 vial 05/27/20 07/25/20 Rx (formulary)] Famotidine [Pepcid] 20 mg PO BID PRN 07/25/20 07/25/20 History Allergies Allergy/AdvReac Type Severity Reaction Status Date / Time No Known Allergies Allergy Verified 07/25/20 16:25 Physical Exam Vitals: Vital Signs Temp Pulse Resp BP Pulse Ox 07/26/20 10:00 98.3 F 84 18 100/81 96 07/26/20 09:00 84 18 104/72 96 07/26/20 08:00 84 18 98/73 96 07/26/20 05:00 100 18 110/78 96 07/26/20 02:00 102 H 20 117/76 95 07/26/20 01:00 96 16 102/74 97 07/25/20 23:02 105 H 20 100/76 96 07/25/20 22:00 16 98/69 98 07/25/20 21:00 98 18 91/64 07/25/20 20:00 99 18 103/69 95 07/25/20 17:59 97 18 89/70 97 07/25/20 17:27 94/73 07/25/20 16:08 81/57 07/25/20 14:01 97.9 F 112 H 18 96/65 96 Intake and Output 07/25/20 07/26/20 07/26/20 22:59 06:59 14:59 Output Total 750 Balance -750 Output: Urine 750 Uretheral ([place]) 750 - Constitutional General appearance: no acute distress - Respiratory Respiratory: bilateral: diminished - Cardiovascular Rhythm: regular Heart sounds: normal: S1, S2 Abnormal Heart Sounds: systolic murmur Results 07/26/20 06:30 07/26/20 06:30 Cardiac Enzymes 07/25/20 07/26/20 Range/Units 14:27 06:30 AST 40 46 (17-59) U/L CBC 07/25/20 07/26/20 Range/Units 14:27 06:30 WBC 16.8 H 17.7 H (3.8-10.6) k/uL RBC 4.22 L 3.78 L (4.30-5.90) m/uL Hgb 12.2 L 11.5 L (13.0-17.5) gm/dL Hct 39.2 33.9 L (39.0-53.0) % Plt Count 453 H 410 (150-450) k/uL Comprehensive Metabolic Panel 07/25/20 07/26/20 Range/Units 14:27 06:30 Sodium 130 L 136 L (137-145) mmol/L Potassium 5.1 3.3 L (3.5-5.1) mmol/L Chloride 98 102 (98-107) mmol/L Carbon Dioxide 22 28 (22-30) mmol/L BUN 15 9 (9-20) mg/dL Creatinine 0.67 0.64 L (0.66-1.25) mg/dL Glucose 614 H* 63 L (74-99) mg/dL Calcium 8.8 8.3 L (8.4-10.2) mg/dL AST 40 46 (17-59) U/L ALT 21 20 (4-49) U/L Alkaline Phosphatase 182 H 118 (38-126) U/L Total Protein 6.3 6.2 L (6.3-8.2) g/dL Albumin 3.5 3.3 L (3.5-5.0) g/dL Current Medications Generic Name Dose Route Start Last Admin Trade Name Freq PRN Reason Stop Dose Admin Enoxaparin Sodium 40 mg 07/25/20 20:45 07/26/20 09:18 Enoxaparin 40 Mg/0.4 Ml Syringe SQ 40 mg DAILY LEENA Administration Hydromorphone HCl 1 mg 07/25/20 16:08 07/26/20 05:02 Hydromorphone 1 Mg/Ml 1 Ml Syringe IVP 1 mg Q3HR PRN Administration Severe Pain Sodium Chloride 1,000 mls @ 130 mls/hr 07/25/20 15:00 07/26/20 08:48 Saline 0.9% IV 130 mls/hr .[id number] LEENA Administration Ampicillin Sodium/Sulbactam 100 mls @ 200 mls/hr 07/26/20 00:00 07/26/20 09:16 Sodium 3 gm/ Sodium Chloride IVPB 200 mls/hr Q8HR LEENA Administration Vancomycin HCl 1,750 mg/ 500 mls @ 167 mls/hr 07/26/20 10:00 07/26/20 10:06 Sodium Chloride IVPB 167 mls/hr Q12H LEENA Administration Insulin Aspart 0 unit 07/25/20 17:30 07/26/20 08:51 Insulin Aspart (Novolog) 100 Unit/Ml Vial SQ Not Given ACHS LEENA Protocol Lorazepam 1 mg 07/26/20 01:19 07/26/20 01:22 Lorazepam 2 Mg/Ml Inj IV 1 mg Q8HR PRN Administration Agitation Naloxone HCl 0.2 mg 07/25/20 16:08 Naloxone 0.4 Mg/Ml 1 Ml Vial IV Q2M PRN Opioid Reversal Ondansetron HCl 4 mg 07/25/20 16:08 Ondansetron 4 Mg/2 Ml Vial IVP Q8HR PRN Nausea And Vomiting Intake and Output 07/25/20 07/26/20 07/26/20 22:59 06:59 14:59 Output Total 750 Balance -750 Output: Urine 750 Uretheral ([place]) 750 07/26/20 06:30 07/26/20 06:30 Assessment and Plan Assessment: Assessment #1 critical limb ischemia of the left foot #2 coronary artery disease seems to be stable #3 significant history of smoking #4 multiple comorbid conditions Plan #1 the patient seems to be stable hemodynamically #2 no angina and he doesn't look in any heart failure and he is stable without any arrhythmia #3 the patient can proceed with any surgical procedure #4 will follow-up with the patient on when necessary case
[2020-07-26] MEDS ORDERED: POTASSIUM CHLORIDE ER 20 MEQ TAB.ER PO STA (13:03)
--- NOTE | 2020-07-26 14:06 | P.GSCN ---
History of Present Illness Consult date: 07/26/20 History of present illness: The patient is a 70-year-old male with a past medical history of diabetes, coronary artery disease, peripheral arterial disease, hypertension, neuropathy and left leg and foot pain who was initially seen by Dr. Forbes 4-6 weeks ago for an infected/ischemic distal foot. He was given antibiotics at that time and it was decided outpatient evaluation for short-term follow-up and planning for revascularization. There was an ongoing process, and inability to fully complete his cardiac workup therefore he was sent into the hospital to expedite this. The majority of the noted this time is collected from the nursing staff in chart given the patient's encephalopathic state. He is undergoing EEG. Reportedly not following commands properly last evening and he had issues with altered mental status. At this point he denies any fevers and chills per the chart Past Medical History Past Medical History: Coronary Artery Disease (CAD), Diabetes Mellitus, Eye Disorder, GERD/Reflux, Hypertension, Musculoskeletal Disorder, Osteoarthritis (OA) Additional Past Medical History / Comment(s): peripheral neuropathy,. spondilolithesis. disabled-moves slowly History of Any Multi-Drug Resistant Organisms: None Reported Past Surgical History: Heart Catheterization With Stent, Orthopedic Surgery, Tonsillectomy Additional Past Surgical History / Comment(s): lt knee surg. lt knee scope. [facility] Past Anesthesia/Blood Transfusion Reactions: No Reported Reaction Date of Last Stent Placement:: 2008 Past Psychological History: Anxiety, Depression Smoking Status: Former smoker Past Alcohol Use History: None Reported Past Drug Use History: None Reported - Past Family History Mother Family Medical History: Unable to Obtain Medications and Allergies Home Medications Medication Instructions Recorded Confirmed Type Insulin Glargine,Hum.rec.anlog 40 unit SQ BID 05/22/20 07/25/20 History [Lantus Solostar] INSULIN ASPART (NovoLOG) [NovoLOG 8 unit SQ AC-TID #1 vial 05/27/20 07/25/20 Rx (formulary)] Famotidine [Pepcid] 20 mg PO BID PRN 07/25/20 07/25/20 History Allergies Allergy/AdvReac Type Severity Reaction Status Date / Time No Known Allergies Allergy Verified 07/25/20 16:25 Surgical - Exam Vital Signs Temp Pulse Resp BP Pulse Ox 97.9 F 112 H 18 96/65 96 07/25/20 14:01 07/25/20 14:01 07/25/20 14:01 07/25/20 14:01 07/25/20 14:01 Gen. a pleasant cooperative lethargic male undergoing EEG. HEENT is normal cephalic, atraumatic. Heart is apparently regular at this time. Lungs are clear no respiratory distress. Abdomen is soft. Extremities show no clubbing or edema. Left lower extremity has ischemic changes. Unable to follow commands Results - Labs 07/26/20 06:30 07/26/20 06:30 Abnormal Lab Results - Last 24 Hours (Table) 07/25/20 07/25/20 07/25/20 Range/Units 14:27 14:27 14:27 WBC 16.8 H (3.8-10.6) k/uL RBC 4.22 L (4.30-5.90) m/uL Hgb 12.2 L (13.0-17.5) gm/dL Hct (39.0-53.0) % Plt Count 453 H (150-450) k/uL Neutrophils # 14.3 H (1.3-7.7) k/uL Sodium 130 L (137-145) mmol/L Potassium (3.5-5.1) mmol/L Creatinine (0.66-1.25) mg/dL Glucose 614 H* (74-99) mg/dL POC Glucose (mg/dL) (75-99) mg/dL Plasma Lactic Acid Kareem 3.4 H* (0.7-2.0) mmol/L Calcium (8.4-10.2) mg/dL Alkaline Phosphatase 182 H (38-126) U/L Total Protein (6.3-8.2) g/dL Albumin (3.5-5.0) g/dL 07/25/20 07/25/20 07/25/20 Range/Units 15:41 18:31 20:04 WBC (3.8-10.6) k/uL RBC (4.30-5.90) m/uL Hgb (13.0-17.5) gm/dL Hct (39.0-53.0) % Plt Count (150-450) k/uL Neutrophils # (1.3-7.7) k/uL Sodium (137-145) mmol/L Potassium (3.5-5.1) mmol/L Creatinine (0.66-1.25) mg/dL Glucose (74-99) mg/dL POC Glucose (mg/dL) >600 H 362 H 276 H (75-99) mg/dL Plasma Lactic Acid Kareem (0.7-2.0) mmol/L Calcium (8.4-10.2) mg/dL Alkaline Phosphatase (38-126) U/L Total Protein (6.3-8.2) g/dL Albumin (3.5-5.0) g/dL 07/26/20 07/26/20 Range/Units 06:30 06:30 WBC 17.7 H (3.8-10.6) k/uL RBC 3.78 L (4.30-5.90) m/uL Hgb 11.5 L (13.0-17.5) gm/dL Hct 33.9 L (39.0-53.0) % Plt Count (150-450) k/uL Neutrophils # 14.1 H (1.3-7.7) k/uL Sodium 136 L (137-145) mmol/L Potassium 3.3 L (3.5-5.1) mmol/L Creatinine 0.64 L (0.66-1.25) mg/dL Glucose 63 L (74-99) mg/dL POC Glucose (mg/dL) (75-99) mg/dL Plasma Lactic Acid Kareem (0.7-2.0) mmol/L Calcium 8.3 L (8.4-10.2) mg/dL Alkaline Phosphatase (38-126) U/L Total Protein 6.2 L (6.3-8.2) g/dL Albumin 3.3 L (3.5-5.0) g/dL Diabetes panel 07/25/20 07/26/20 Range/Units 14:27 06:30 Sodium 130 L 136 L (137-145) mmol/L Potassium 5.1 3.3 L (3.5-5.1) mmol/L Chloride 98 102 (98-107) mmol/L Carbon Dioxide 22 28 (22-30) mmol/L BUN 15 9 (9-20) mg/dL Creatinine 0.67 0.64 L (0.66-1.25) mg/dL Glucose 614 H* 63 L (74-99) mg/dL Calcium 8.8 8.3 L (8.4-10.2) mg/dL AST 40 46 (17-59) U/L ALT 21 20 (4-49) U/L Alkaline Phosphatase 182 H 118 (38-126) U/L Total Protein 6.3 6.2 L (6.3-8.2) g/dL Albumin 3.5 3.3 L (3.5-5.0) g/dL Calcium panel 07/25/20 07/26/20 Range/Units 14: 06:30 Calcium 8.8 8.3 L (8.4-10.2) mg/dL Albumin 3.5 3.3 L (3.5-5.0) g/dL Pituitary panel 07/25/20 07/26/20 Range/Units 14: 06:30 Sodium 130 L 136 L (137-145) mmol/L Potassium 5.1 3.3 L (3.5-5.1) mmol/L Chloride 98 102 (98-107) mmol/L Carbon Dioxide 22 28 (22-30) mmol/L BUN 15 9 (9-20) mg/dL Creatinine 0.67 0.64 L (0.66-1.25) mg/dL Glucose 614 H* 63 L (74-99) mg/dL Calcium 8.8 8.3 L (8.4-10.2) mg/dL Adrenal panel 07/25/20 07/26/20 Range/Units 14: 06:30 Sodium 130 L 136 L (137-145) mmol/L Potassium 5.1 3.3 L (3.5-5.1) mmol/L Chloride 98 102 (98-107) mmol/L Carbon Dioxide 22 28 (22-30) mmol/L BUN 15 9 (9-20) mg/dL Creatinine 0.67 0.64 L (0.66-1.25) mg/dL Glucose 614 H* 63 L (74-99) mg/dL Calcium 8.8 8.3 L (8.4-10.2) mg/dL Total Bilirubin 0.4 0.7 (0.2-1.3) mg/dL AST 40 46 (17-59) U/L ALT 21 20 (4-49) U/L Alkaline Phosphatase 182 H 118 (38-126) U/L Total Protein 6.3 6.2 L (6.3-8.2) g/dL Albumin 3.5 3.3 L (3.5-5.0) g/dL Assessment and Plan Assessment: Superficial femoral artery occlusive disease bilaterally Ischemic rest pain left lower extremity, nonhealing wounds Leukocytosis Metabolic encephalopathy Diabetes Tobacco abuse Plan: At this time continue supportive care. IV antibiotics. Await cardiac input. We'll plan for likely possible femoral to below-knee bypass in the near future
[2020-07-26 14:44] LABS: Glucose,Whole Blood 99 mg/dL (75-99)
--- NOTE | 2020-07-26 17:03 | P.PN ---
Progress Note - Text Progress Note Date: 07/26/20 Chief Complaint: Left foot pain History of presenting complaint: This is a 70-year-old patient who follows with Dr. Fox. Patient lives by himself. Patient is of the left foot and is due for a bypass by Dr. Aponte of the vascular surgeon. He was admitted for cardiology clearance. Patient's left heel wound and told wounds have been progressively getting worse in terms of increasing pain and difficulty to walk. Patient's appetite is okay. Denies any fever and chills. Chronic stable medical conditions include diabetes mellitus requiring insulin, coronary artery disease, peripheral neuropathy osteoarthritis. Patient has known peripheral arterial disease. Admitted with acute and chronic left foot wounds, started on IV vancomycin and Unasyn. Acute nonketotic hyperosmolar hyperglycemia-put on IV fluids. Lactic acidosis. Acute metabolic encephalopathy multifactorial including infection. Today: Laying in bed. Tired. Decreased oral intake. A bit lethargic. On IV antibiotics. Review of systems: Was done for constitutional, cardiovascular, GI, pulmonary. relevant finding as above Active Medications Enoxaparin Sodium (Enoxaparin 40 Mg/0.4 Ml Syringe) 40 mg SQ DAILY [facility] Last Admin: 07/26/20 09:18 Dose: 40 mg Documented by: Hydromorphone HCl (Hydromorphone 1 Mg/Ml 1 Ml Syringe) 1 mg IVP Q3HR PRN PRN Reason: Severe Pain Last Admin: 07/26/20 05:02 Dose: 1 mg Documented by: Sodium Chloride (Saline 0.9%) 1,000 mls @ 130 mls/hr IV .Q7H42M [facility] Last Admin: 07/26/20 14:40 Dose: 130 mls/hr Documented by: Ampicillin Sodium/Sulbactam (Sodium 3 gm/ Sodium Chloride) 100 mls @ 200 mls/hr IVPB Q8HR [facility] Last Admin: 07/26/20 16:20 Dose: 200 mls/hr Documented by: Vancomycin HCl 1,750 mg/ (Sodium Chloride) 500 mls @ 167 mls/hr IVPB Q12H [facility] Last Admin: 07/26/20 10:06 Dose: 167 mls/hr Documented by: Insulin Aspart (Insulin Aspart (Novolog) 100 Unit/Ml Vial) 0 unit SQ ACHS [facility]; Protocol Last Admin: 07/26/20 14:46 Dose: Not Given Documented by: Lorazepam (Lorazepam 2 Mg/Ml Inj) 1 mg IV Q8HR PRN PRN Reason: Agitation Last Admin: 07/26/20 01:22 Dose: 1 mg Documented by: Naloxone HCl (Naloxone 0.4 Mg/Ml 1 Ml Vial) 0.2 mg IV Q2M PRN PRN Reason: Opioid Reversal Ondansetron HCl (Ondansetron 4 Mg/2 Ml Vial) 4 mg IVP Q8HR PRN PRN Reason: Nausea And Vomiting Past medical history to include: Coronary artery disease with stent, diabetes, GERD, hypertension, prostatitis, peripheral neuropathy, anxiety depression Social history: Denies alcohol. Lives alone. Former smoker. Family history: Reviewed, noncontributory to presentation Physical examination: VITAL SIGNS: 98.3, 86, 18, 95 x 66, 96% room air GENERAL:, laying in bed, lethargic but answers questions EYES: Pupils equal. Conjunctiva normal. NECK: JVD not raised; masses not palpable. HEART: First and second heart sounds are normal; no edema. LUNGS:[ Respiratory rate normal; decreased breath sounds. ABDOMEN: Soft, nontender, liver spleen not palpable, no masses palpable. PSYCH: Lethargic but answers questions. NEUROLOGICAL: [Cranial nerves grossly intact; no facial asymmetry, decreased sensation distally MUSCULOSKELETAL: Patient's code wound to the left fourth toe discolored tender and also one on the left heel. Absent dorsalis pedis INVESTIGATIONS, reviewed in the clinical context: July 18: WBC 17.7 hemoglobin 11.5 potassium 3.3 creatinine 0.64 WBC 16.8 hemoglobin 12.2 platelets 453 sodium 1:30 potassium 5.1 creatinine 0.67 Glucose 614 lactic acid 3.4 Serum acetone negative Coronavirus [PCR: Not detected Doppler ultrasound of left lower extremity: Negative for DVT Assessment and plan: -Acute on chronic left foot wounds present on the toes and left heel secondary to poor circulation/peripheral arterial disease. Patient is awaiting bypass was awaiting a cardiology clearance. Symptoms have gotten worse precipitating the admission.-Slow to respond Possible secondary infection with possible sepsis. IV fluids. Vancomycin. IV Unasyn -Significant peripheral arterial disease aspirin, Lipitor -Coronary artery disease with stent. Patient has no active cardiac symptoms aspirin. Check 2-D echo. Lipitor -Diabetic peripheral neuropathy -Diabetes mellitus type 2, chronically on insulin Uncontrolled with diabetic nonketotic hyperosmolar hyperglycemia IV fluids. Follow Accu-Cheks -GERD Pepcid -Lactic acidosis possibly combination of sepsis and type II IV fluids, antibiotics -Acute metabolic encephalopathy multifactorial Continue with IV fluids antibiotics Continue current medication treatment plan. Follow Accu-Cheks. IV vancomycin and IV Unasyn.
[2020-07-26 17:36] LABS: Glucose,Whole Blood 99 mg/dL (75-99)
--- NOTE | 2020-07-26 18:33 | EEG ---
ELECTROENCEPHALOGRAM REPORT DATE OF SERVICE: 07/26/2020. CLINICAL HISTORY: This is a 70-year-old gentleman with altered mental status. The EEG is obtained to evaluate for seizure epileptiform activity. RELEVANT MEDICATION: The patient is not on any antiepileptic drug. EEG TYPE: A routine 21-channel EEG is performed with video using the 10/20 electrode placement system. DESCRIPTION: Only wakefulness is obtained. During wakefulness there is posterior-dominant rhythm of low to moderate voltage of 8 to 8.5 hertz that is poorly modulated, poorly sustained. There is no sleep architecture seen during the study. There is no focal slowing seen. There is moderate to significant diffuse myogenic artifact throughout the study. Interictal and ictal is none. ACTIVATION PROCEDURE: Photic stimulation and hyperventilation are not performed. CLINICAL INTERPRETATION: This is a normal routine EEG. There are no focal slowing, epileptiform discharge or seizure on the EEG. Clinical correlation is recommended. GENI / BRANDYN: [id number] / MTDD
[2020-07-26 19:52] LABS: Glucose,Whole Blood 226 mg/dL (75-99)
[2020-07-27] MEDS ORDERED: LORazepam 2 MG/ML INJ IV PRN (01:02)
[2020-07-27] MEDS: HYDROmorphone 1 MG/ML 1 ML SYRINGE IVP PRN ×4 (01:58→16:20)
[2020-07-27] MEDS: SODIUM CHLORIDE 0.9% 1,000 ML IV SCH ×3 (06:06→20:44)
[2020-07-27 06:08] LABS: Glucose,Whole Blood 108 mg/dL (75-99)
[2020-07-27] MEDS: INSULIN ASPART (NovoLOG) 100 UNIT/ML VIAL SQ SCH ×4 (06:08→20:44)
--- NOTE | 2020-07-27 06:41 | CONS ---
CONSULTATION DATE OF SERVICE: 07/26/2020 REASON FOR CONSULTATION: Left heel and foot wound cellulitis. HISTORY OF PRESENT ILLNESS: The patient is a 70-year-old male who apparently has been dealing with a nonhealing wound to the left heel and toes of the left foot which has been going on for the last few weeks. Managed in outpatient setting by vascular surgery, Dr. Jaramillo. Apparently has been treated with a course of antibiotics. However, the patient is not clear currently above the name of the antibiotic he has received. The patient apparently was waiting for cardiac clearance before a femoral-popliteal bypass. He was evaluated in the outpatient setting by his surgeon and recommended admission to the hospital with worsening wound and concern for wound infection. The patient complaining of pain to the heel and toe wound area, mostly sharp to dull aching, moderate in intensity. No radiation. He did have some drainage. Denies significant foul smelling. With these symptoms, the patient has been evaluated by the ER physician. On arrival to the ER the patient was afebrile. The patient did have a white count of 17.7 and kidney function has been normal. [place] PCR was negative. Blood culture obtained currently pending. Patient did have a chest x-ray that was negative for acute pulmonary process. Patient was started on Unasyn and vancomycin. Infectious Disease was consulted for further management of antibiotic therapy. REVIEW OF SYSTEMS: Positive points have been mentioned in HPI. Rest of the systems are negative. PAST MEDICAL HISTORY: Peripheral arterial disease, coronary artery disease, diabetes mellitus, gastroesophageal reflux disease, hypertension, osteoarthritis, peripheral neuropathy, spondylosis. PAST SURGICAL HISTORY: PTCA with stent, tonsillectomy, left knee surgery. SOCIAL HISTORY: Remote history of smoking. No drinking or drug use. FAMILY HISTORY: No pertinent findings noticed. ALLERGIES: No known drug allergies. MEDICATIONS: The patient is on Unasyn, Lovenox, Dilaudid, NovoLog, Narcan, Zofran, vancomycin, Pharmacy to dose. PHYSICAL EXAMINATION: VITAL SIGNS: Blood pressure 99/54 with a pulse of 95, temperature 98.7, he is 97% on room air. GENERAL DESCRIPTION: Patient is an elderly male lying in bed in no distress. No tachypnea or accessory muscles of respiration use. HEENT: Examination shows slight pallor, no scleral icterus. Oral mucous membrane is dry. NECK: Trachea central, no thyromegaly. LUNGS: Unlabored breathing, clear to auscultation anteriorly. No wheeze or crackle. HEART: S1-S2, regular rate and rhythm. ABDOMEN: Soft, no tenderness. No guarding or rigidity. EXTREMITIES: No edema of the feet. Examination of the left heel did have a ulcer . No significant drainage. He did have evidence of chronic toe with minimal swelling, some discoloration, no significant drainage was noted. NEUROLOGICAL: Patient is awake, alert, oriented times three. Mood and affect normal. LABS: Hemoglobin is 11.8, white count 17.7, BUN of 9, creatinine 0.64. Blood culture obtained is negative. No local culture has been done. DIAGNOSTIC IMPRESSION: Patient admitted to the hospital with nonhealing wound to the left heel and toe area with concern for underlying secondary infection. Need to cover for both Gram-positive as well as Gram-negative pathogen in view of the previous exposure to antibiotics and underlying PAD. PLAN: 1. We will obtain x-rays of the left foot. 2. Check inflammatory markers. 3. Unasyn 3 g q.8h and vancomycin to continue. 4. Await surgical debridement and deep culture. 5. We will follow on his clinical condition and culture to further adjust medication if needed. Thank you for this consultation. Will follow this patient along with you. MMODL / IJN: [id number] /
[2020-07-27] MEDS: AMPICILLIN-SULBACTAM 3 GM in SODIUM CHLORIDE 0.9% 100 ML IVPB SCH ×3 (07:47→23:15)
[2020-07-27] MEDS: ENOXAPARIN 40 MG/0.4 ML SYRINGE SQ SCH (07:48)
[2020-07-27 07:59] LABS: Basophils % (A) 0 %; Eosinophils # (A) 0.5 k/uL (0-0.7); Eosinophils % (A) 3 %; Lymphocytes # (A) 1.9 k/uL (1.0-4.8); Lymphocytes % (A) 13 %; MCH 28.7 pg (25.0-35.0); MCHC 31.7 g/dL (31.0-37.0); MCV 90.6 fL (80.0-100.0); Mean Platelet Volume 6.8; Monocytes # (A) 0.6 k/uL (0-1.0); Monocytes % (A) 4 %; Neutrophils # (A) 11.6 k/uL (1.3-7.7); Neutrophils % (A) 78 %; Platelet Count 415 k/uL (150-450); RBC 4.19 m/uL (4.30-5.90); RDW 13.3 % (11.5-15.5); WBC 14.8 k/uL (3.8-10.6)
[2020-07-27 08:19] LABS: African American GFR (CKD) >90 (>60 ml/min/1.73 sqM); Anion Gap 6 mmol/L; Blood Urea Nitrogen 8 mg/dL (9-20); Calcium 8.3 mg/dL (8.4-10.2); Carbon Dioxide 27 mmol/L (22-30); Chloride 102 mmol/L (98-107); Glucose 55 mg/dL (74-99); Non-African American GFR(CKD) >90 (>60 ml/min/1.73 sqM); Sodium 135 mmol/L (137-145)
[2020-07-27] MEDS: VANCOMYCIN 1,500 MG in SODIUM CHLORIDE 0.9% 250 ML IVPB SCH ×2 (10:25→21:49)
[2020-07-27 11:52] LABS: Glucose,Whole Blood 246 mg/dL (75-99)
[2020-07-27] MEDS: HYDROcodone/APAP 10-325MG 1 EACH TAB PO PRN (13:07)
--- NOTE | 2020-07-27 15:31 | ECHOF ---
Referral Reason:CAD MEASUREMENTS -------- HEIGHT: 182.9 cm WEIGHT: 99.8 kg BP: IVSd: 1.2 cm (0.6 - 1.1) LVIDd: 4.1 cm (3.9 - 5.3) LVPWd: 1.4 cm (0.6 - 1.1) EDV(Teich): 75 ml IVSs: 1.4 cm LVIDs: 1.6 cm LVPWs: 1.3 cm %IVS Thck: 16 % ESV(Teich): 7 ml EF(Teich): 91 % %FS: 62 % SV(Teich): 69 ml Ao Diam: 3.8 cm (2.0 - 3.7) AV Cusp: 1.7 cm (1.5 - 2.6) MV E Akbar: 0.52 m/s MV DecT: 216 ms MV Dec Buchanan: 2.4 m/s MV A Akbar: 0.53 m/s MV E/A Ratio: 0.98 MV PHT: 63 ms FINDINGS -------- Sinus rhythm. This was a techncally difficult study with suboptimal views, , Lumason utilized for enhancement of im ages. LV size, wall thickness and systolic function are normal, with an EF greater than 55%. The left bernabe tricular size is normal. The right ventricle is normal in size. The left atrial size is normal. The right atrial size is normal. 5.0mg OF Lumason UTLIZED: 2 OR MORE WALL SEGMENTS NOT VISUALIZED. The aortic valve was not well visualized. The mitral valve was not well visualized. The tricuspid valve was not well visualized. The pulmonic valve was not well visualized. The aortic root size is normal. There is no pericardial effusion. CONCLUSIONS -------- 1. This was a techncally difficult study with suboptimal views, , Lumason utilized for enhancement of images. 2. LV size, wall thickness and systolic function are normal, with an EF greater than 55%. 3. The left ventricular size is normal. 4. The right ventricle is normal in size. 5. The left atrial size is normal. 6. The right atrial size is normal. 7. 5.0mg OF Lumason UTLIZED: 2 OR MORE WALL SEGMENTS NOT VISUALIZED. 8. The aortic valve was not well visualized. 9. The mitral valve was not well visualized. 10. The tricuspid valve was not well visualized. 11. The pulmonic valve was not well visualized. 12. The aortic root size is normal. 13. There is no pericardial effusion. PRODUCT SAFETY COMPLIANCE LEADER: Lolita Adams RDCS
[2020-07-27 17:29] LABS: Glucose,Whole Blood 257 mg/dL (75-99)
--- NOTE | 2020-07-27 17:51 | PN ---
PROGRESS NOTE DATE OF SERVICE: 07/27/2020 HIS FOLLOWUP IS: Left second and third toe gangrene and left heel ulcer. INTERVAL HISTORY: The patient is currently afebrile. Patient is breathing comfortably. Denies any chest pain or cough. No abdominal pain. Still complaining of pain to the left foot. No worsening. No nausea, vomiting, no diarrhea. PHYSICAL EXAMINATION: VITAL SIGNS: Blood pressure 93/58 with a pulse of 80, temperature 98.1, he is 94% on room air. GENERAL DESCRIPTION: An elderly male lying in bed in no distress. RESPIRATORY SYSTEM: Unlabored breathing, clear to auscultation anteriorly. HEART: S1, S2. Regular rate and rhythm. ABDOMEN: Soft, no tenderness. EXTREMITIES: Left second and third toes remain to be necrotic. Some swelling and redness to the dorsal aspect of the left foot with some slough tissue to the left heel wound. LABS: Hemoglobin is 12.8, white count 14.8, BUN of 8, creatinine 0.62. Blood culture negative so far. DIAGNOSTIC IMPRESSION AND PLAN: Patient with left second and third toe gangrene with necrotic area to the left heel area. Waiting for cardiac clearance before Vascular Surgery. Patient is covered with vancomycin and Unasyn to continue. Local wound care as ordered. Continue supportive care. MMODL / IJN: [id number] /
--- NOTE | 2020-07-27 18:26 | P.PN ---
Subjective Progress Note Date: 07/27/20 Principal diagnosis: Peripheral vascular occlusive disease Nonhealing wounds left lower extremity Metabolic encephalopathy 70-year-old patient with history of the left foot and is due for a bypass by Dr. Aponte of the vascular surgeon. He was admitted for cardiology clearance. Patient's left heel wound and told wounds have been progressively getting worse in terms of increasing pain and difficulty to walk. Patient's appetite is okay. Denies any fever and chills. Chronic stable medical conditions include diabetes mellitus requiring insulin, coronary artery disease, peripheral neuropathy osteoarthritis. Patient has known peripheral arterial disease. Objective - Vital Signs Vital signs: Vital Signs Temp 98.1 F 07/27/20 07:45 Pulse 79 07/27/20 07:45 Resp 16 07/27/20 07:57 BP 100/62 07/27/20 07:45 Pulse Ox 97 07/27/20 07:45 Intake & Output 07/26/20 07/27/20 07/27/20 18:59 06:59 18:59 Intake Total 240 240 Output Total 1450 2900 800 Balance -1210 -2900 -560 Weight 99.79 kg 78.5 kg Intake: Oral 240 240 Output: Urine 1450 2900 800 Uretheral ([place]) 750 Other: Voiding Method Indwelling Catheter Indwelling Catheter - Exam GENERAL:, laying in bed, lethargic but answers questions EYES: Pupils equal. Conjunctiva normal. NECK: JVD not raised; masses not palpable. HEART: First and second heart sounds are normal; no edema. LUNGS:[ Respiratory rate normal; decreased breath sounds. ABDOMEN: Soft, nontender, liver spleen not palpable, no masses palpable. PSYCH: Lethargic but answers questions. NEUROLOGICAL: [Cranial nerves grossly intact; no facial asymmetry, decreased sensation distally MUSCULOSKELETAL: Patient's code wound to the left fourth toe discolored tender and also one on the left heel. Absent dorsalis pedis - Labs CBC & Chem 7: 07/27/20 07:08 07/27/20 07:08 Labs: Abnormal Lab Results - Last 24 Hours (Table) 07/26/20 07/27/20 07/27/20 Range/Units 19:50 06:06 07:08 WBC 14.8 H (3.8-10.6) k/uL RBC 4.19 L (4.30-5.90) m/uL Hgb 12.0 L (13.0-17.5) gm/dL Hct 38.0 L (39.0-53.0) % Neutrophils # 11.6 H (1.3-7.7) k/uL Sodium (137-145) mmol/L BUN (9-20) mg/dL Creatinine (0.66-1.25) mg/dL Glucose (74-99) mg/dL POC Glucose (mg/dL) 226 H 108 H (75-99) mg/dL Calcium (8.4-10.2) mg/dL 07/27/20 Range/Units 07:08 WBC (3.8-10.6) k/uL RBC (4.30-5.90) m/uL Hgb (13.0-17.5) gm/dL Hct (39.0-53.0) % Neutrophils # (1.3-7.7) k/uL Sodium 135 L (137-145) mmol/L BUN 8 L (9-20) mg/dL Creatinine 0.62 L (0.66-1.25) mg/dL Glucose 55 L (74-99) mg/dL POC Glucose (mg/dL) (75-99) mg/dL Calcium 8.3 L (8.4-10.2) mg/dL Microbiology - Last 24 Hours (Table) 07/25/20 14:27 Blood Culture - Preliminary Blood No Growth after 24 hours 07/25/20 14:27 Blood Culture - Preliminary Blood No Growth after 24 hours Assessment and Plan Assessment: 1. Acute on chronic left foot wounds present on the toes and left heel secondary to poor circulation/peripheral arterial disease. - Patient is awaiting bypass; has been cleared by cardiology service - Patient remains on IV antibiotics in form of Vancomycin and Unasyn 2. Significant peripheral arterial disease - Continue with aspirin, Lipitor 3. Coronary artery disease with stent. Patient has no active cardiac symptoms aspirin. Check 2-D echo. Lipitor 4. Diabetic peripheral neuropathy 5. Diabetes mellitus type 2, chronically on insulin Uncontrolled with diabetic nonketotic hyperosmolar hyperglycemia IV fluids. Follow Accu-Cheks 6. Acute metabolic encephalopathy multifactorial Continue with IV fluids antibiotics DVT prophylaxis; SCDs CODE STATUS; full code
[2020-07-27] MEDS: LORazepam 2 MG/ML INJ IV PRN (20:05)
[2020-07-27 20:19] LABS: Glucose,Whole Blood 293 mg/dL (75-99)
[2020-07-27] MEDS ORDERED: VANCOMYCIN TROUGH DUE 1 EACH MISC MISCELLANE ONE (21:00)
[2020-07-28] MEDS: HYDROcodone/APAP 10-325MG 1 EACH TAB PO PRN ×3 (02:33→22:05)
[2020-07-28] MEDS: SODIUM CHLORIDE 0.9% 1,000 ML IV SCH ×3 (02:35→21:43)
[2020-07-28 06:13] LABS: Glucose,Whole Blood 206 mg/dL (75-99)
[2020-07-28] MEDS: VANCOMYCIN 1,500 MG in SODIUM CHLORIDE 0.9% 250 ML IVPB SCH ×3 (06:15→22:01)
[2020-07-28] MEDS: INSULIN ASPART (NovoLOG) 100 UNIT/ML VIAL SQ SCH ×4 (06:15→22:00)
[2020-07-28] MEDS: AMPICILLIN-SULBACTAM 3 GM in SODIUM CHLORIDE 0.9% 100 ML IVPB SCH ×3 (08:27→23:32)
[2020-07-28] MEDS: ENOXAPARIN 40 MG/0.4 ML SYRINGE SQ SCH (08:27)
[2020-07-28 11:43] LABS: Glucose,Whole Blood 211 mg/dL (75-99)
--- NOTE | 2020-07-28 13:40 | P.PN ---
Subjective Progress Note Date: 07/28/20 Principal diagnosis: Left lower extremity critical limb ischemia 70-year-old gentleman with history of bilateral superficial femoral artery occlusion and ischemic rest pain in the left lower extremity with nonhealing wounds currently on IV antibiotics awaiting bypass. Cardiology has seen the patient and has cleared him for surgical intervention. Currently he states he is doing well but his pain is still present in his left foot. He denies any fevers, chills, chest pain or shortness of breath. Objective - Vital Signs Vital signs: Vital Signs Temp 99.8 F H 07/28/20 04:00 Pulse 92 07/28/20 04:00 Resp 16 07/28/20 04:00 BP 100/56 07/28/20 04:00 Pulse Ox 95 07/28/20 04:00 Intake & Output 07/27/20 07/28/20 07/28/20 18:59 06:59 18:59 Intake Total 720 360 Output Total 1550 3200 700 Balance -830 -3200 -340 Weight 87 kg 87 kg Intake: Oral 720 360 Output: Urine 1550 3200 700 Other: Voiding Method Indwelling Catheter Indwelling Catheter - Exam General- pleasant, cooperative, lethargic male, NAD, A&O x 3 HEENT- PERRL, EOMI, No scleral icterus CV- Regular rate Pulm- Clear, no retractions Abd- soft, non distended Ext- left lower extremity with nonpalpable DP or PT pulses. Monophasic signals. Left second and third toe is necrotic with minimal erythema and edema. Neurologic- No focal deficits, sensation and strength grossly intact - Labs CBC & Chem 7: 07/27/20 07:08 07/27/20 07:08 Labs: Abnormal Lab Results - Last 24 Hours (Table) 07/27/20 07/27/20 07/28/20 Range/Units 17:09 20:18 06:12 POC Glucose (mg/dL) 257 H 293 H 206 H (75-99) mg/dL 07/28/20 Range/Units 11:42 POC Glucose (mg/dL) 211 H (75-99) mg/dL Microbiology - Last 24 Hours (Table) 07/25/20 14:27 Blood Culture - Preliminary Blood No Growth after 48 hours 07/25/20 14:27 Blood Culture - Preliminary Blood No Growth after 48 hours Assessment and Plan Assessment: #1 left lower extremity critical limb ischemia [place] classification 5 #2 left toe wounds #3 coronary artery disease with history of stenting #4 type 2 diabetes with diabetic neuropathy Plan: Reviewed cardiology note which states patient is cleared for femoral to tibial artery bypass. I discussed this with Dr. Weinstein who can perform the surgery on Wednesday. He has vein mapping which demonstrates suitable vein for bypass. Discussed this with the patient and he is agreeable. We will schedule him for Wednesday for femoral tibial artery bypass.
[2020-07-28 16:28] LABS: Glucose,Whole Blood 267 mg/dL (75-99)
--- NOTE | 2020-07-28 18:53 | P.PN ---
Subjective Progress Note Date: 07/28/20 Principal diagnosis: Peripheral vascular occlusive disease Nonhealing wounds left lower extremity Metabolic encephalopathy 70-year-old patient with history of the left foot and is due for a bypass by Dr. Aponte of the vascular surgeon. He was admitted for cardiology clearance. Patient's left heel wound and told wounds have been progressively getting worse in terms of increasing pain and difficulty to walk. Patient's appetite is okay. Denies any fever and chills. Chronic stable medical conditions include diabetes mellitus requiring insulin, coronary artery disease, peripheral neuropathy osteoarthritis. Patient has known peripheral arterial disease. 07/28/2020 Patient is seen and evaluated in room at bedside; denies any complaints of chest pain, shortness of breath fever or chills Vital signs are reviewed with temperature of 98.8, pulse 82, respirations 16 and blood pressure 100/56 with SpO2 of 95% Patient has bilateral superficial femoral artery occlusion and ischemic rest pain in the left lower extremity with a nonhealing wound; patient remains on IV antibiotics and awaits bypass surgery; cardiology on board and patient has been cleared for femoral to tibial artery bypass; vascular surgery on board and planning surgery on Wednesday; vein mapping has been completed Objective - Vital Signs Vital signs: Vital Signs Temp 99.8 F H 07/28/20 04:00 Pulse 92 07/28/20 04:00 Resp 16 07/28/20 04:00 BP 100/56 07/28/20 04:00 Pulse Ox 95 07/28/20 04:00 Intake & Output 07/27/20 07/28/20 07/28/20 18:59 06:59 18:59 Intake Total 720 360 Output Total 1550 3200 700 Balance -830 -3200 -340 Weight 87 kg 87 kg Intake: Oral 720 360 Output: Urine 1550 3200 700 Other: Voiding Method Indwelling Catheter Indwelling Catheter - Exam GENERAL:, laying in bed, lethargic but answers questions EYES: Pupils equal. Conjunctiva normal. NECK: JVD not raised; masses not palpable. HEART: First and second heart sounds are normal; no edema. LUNGS:[ Respiratory rate normal; decreased breath sounds. ABDOMEN: Soft, nontender, liver spleen not palpable, no masses palpable. PSYCH: Lethargic but answers questions. NEUROLOGICAL: [Cranial nerves grossly intact; no facial asymmetry, decreased sensation distally MUSCULOSKELETAL: Patient's code wound to the left fourth toe discolored tender and also one on the left heel. Absent dorsalis pedis - Labs CBC & Chem 7: 07/27/20 07:08 07/27/20 07:08 Labs: Abnormal Lab Results - Last 24 Hours (Table) 07/27/20 07/27/20 07/28/20 Range/Units 17:09 20:18 06:12 POC Glucose (mg/dL) 257 H 293 H 206 H (75-99) mg/dL 07/28/20 Range/Units 11:42 POC Glucose (mg/dL) 211 H (75-99) mg/dL Microbiology - Last 24 Hours (Table) 07/25/20 14:27 Blood Culture - Preliminary Blood No Growth after 48 hours 07/25/20 14:27 Blood Culture - Preliminary Blood No Growth after 48 hours Assessment and Plan Assessment: 1. Acute on chronic left foot wounds present on the toes and left heel secondary to poor circulation/peripheral arterial disease. - Patient is awaiting bypass; has been cleared by cardiology service - Patient remains on IV antibiotics in form of Vancomycin and Unasyn 2. Significant peripheral arterial disease - Continue with aspirin, Lipitor 3. Coronary artery disease with stent. Patient has no active cardiac symptoms aspirin. Check 2-D echo. Lipitor 4. Diabetic peripheral neuropathy 5. Diabetes mellitus type 2, chronically on insulin Uncontrolled with diabetic nonketotic hyperosmolar hyperglycemia IV fluids. Follow Accu-Cheks 6. Acute metabolic encephalopathy multifactorial Continue with IV fluids antibiotics DVT prophylaxis; SCDs CODE STATUS; full code
--- NOTE | 2020-07-28 19:26 | PN ---
PROGRESS NOTE DATE OF SERVICE: 07/28/2020 REASON FOR FOLLOWUP: Left 2nd and 3rd toe wet gangrene and left heel wound. INTERVAL HISTORY: The patient is currently afebrile. Patient is breathing comfortably. Denies having any chest pain. No shortness of breath, cough, abdominal pain or any worsening pain to the left foot. PHYSICAL EXAMINATION: Blood pressure 103/60 with a pulse of 86, temperature 99.3. He is 95% on room air. General description: The patient is an elderly male lying in in no distress. Respiratory system: Unlabored breathing, clear to auscultation anteriorly. Heart S1, S2. Regular rate and rhythm. Abdomen soft, no tenderness. Left 2nd and 3rd toe remains to be necrotic. No significant drainage. LABS: No new labs have been obtained today. DIAGNOSTIC IMPRESSION AND PLAN: Patient with left 2nd and 3rd toe gangrene with left heel wound. Waiting for Cardiology clearance, for vascular surgery evaluation intervention. Continue Unasyn and vancomycin. We will monitor clinical course closely. MMODL / IJN: [id number] /
[2020-07-28 20:25] LABS: Glucose,Whole Blood 268 mg/dL (75-99)
[2020-07-29] MEDS: SODIUM CHLORIDE 0.9% 1,000 ML IV SCH ×3 (06:15→21:04)
[2020-07-29] MEDS: INSULIN ASPART (NovoLOG) 100 UNIT/ML VIAL SQ SCH ×4 (06:51→21:00)
[2020-07-29] MEDS: VANCOMYCIN 1,500 MG in SODIUM CHLORIDE 0.9% 250 ML IVPB SCH ×3 (06:51→22:08)
[2020-07-29 06:58] LABS: Glucose,Whole Blood 262 mg/dL (75-99)
[2020-07-29] MEDS: ENOXAPARIN 40 MG/0.4 ML SYRINGE SQ SCH (08:36)
[2020-07-29] MEDS: AMPICILLIN-SULBACTAM 3 GM in SODIUM CHLORIDE 0.9% 100 ML IVPB SCH ×3 (08:36→23:12)
[2020-07-29 09:18] LABS: Basophils % (A) 0 %; Eosinophils # (A) 0.3 k/uL (0-0.7); Eosinophils % (A) 2 %; HCT 34.8 % (39.0-53.0); HGB 11.5 gm/dL (13.0-17.5); Lymphocytes # (A) 1.5 k/uL (1.0-4.8); Lymphocytes % (A) 10 %; MCH 29.7 pg (25.0-35.0); MCHC 33.2 g/dL (31.0-37.0); MCV 89.5 fL (80.0-100.0); Mean Platelet Volume 7.1; Monocytes # (A) 0.6 k/uL (0-1.0); Monocytes % (A) 4 %; Neutrophils # (A) 12.8 k/uL (1.3-7.7); Neutrophils % (A) 84 %; Platelet Count 436 k/uL (150-450); RBC 3.88 m/uL (4.30-5.90); RDW 12.9 % (11.5-15.5); WBC 15.3 k/uL (3.8-10.6)
[2020-07-29 09:32] LABS: African American GFR (CKD) >90 (>60 ml/min/1.73 sqM); Anion Gap 9 mmol/L; Blood Urea Nitrogen 8 mg/dL (9-20); Calcium 8.2 mg/dL (8.4-10.2); Carbon Dioxide 24 mmol/L (22-30); Chloride 101 mmol/L (98-107); Glucose 258 mg/dL (74-99); Non-African American GFR(CKD) >90 (>60 ml/min/1.73 sqM); Sodium 134 mmol/L (137-145)
[2020-07-29 11:57] LABS: Glucose,Whole Blood 283 mg/dL (75-99)
--- NOTE | 2020-07-29 12:14 | P.PN ---
Subjective 70-year-old patient with history of the left foot and is due for a bypass by Dr. Aponte of the vascular surgeon. He was admitted for cardiology clearance. Patient's left heel wound and told wounds have been progressively getting worse in terms of increasing pain and difficulty to walk. Patient's appetite is okay. Denies any fever and chills. Chronic stable medical conditions include diabetes mellitus requiring insulin, coronary artery disease, peripheral neuropathy osteoarthritis. Patient has known peripheral arterial disease. 07/28/2020 Patient is seen and evaluated in room at bedside; denies any complaints of chest pain, shortness of breath fever or chills Vital signs are reviewed with temperature of 98.8, pulse 82, respirations 16 and blood pressure 100/56 with SpO2 of 95% Patient has bilateral superficial femoral artery occlusion and ischemic rest pain in the left lower extremity with a nonhealing wound; patient remains on IV antibiotics and awaits bypass surgery; cardiology on board and patient has been cleared for femoral to tibial artery bypass; vascular surgery on board and planning surgery on Wednesday; vein mapping has been completed 07/29/2020 This is a pleasant 70 years old male who presents to the emergency room on 07/25 for worsening left foot pain and swelling, who has been evaluated by vascular surgeon Dr. Aponte to about 4-6 weeks ago and was consented for right antibiotics with undergoing workup for possible revascularization surgery however he had problems with obtaining cardiology consult, therefore he was told to come to emergency room when he visited his primary care doctor. Patient states that his PCP is Dr. Kvng Ochoa per patient. On admission also there was concern for black discoloration of the toes and heel. Patient currently is covered with 40 mg of subcutaneous Lovenox Also he is on broad-spectrum antibiotics in the form of Unasyn and IV vancomycin per ID team. Normal saline at 1 30 mL/h Vascular surgery team and the planning for bypass surgery on this coming Wednesday. Cardiology team about the patient with no angina, arrhythmia or overt heart failure symptoms and they recommended patient to proceed with surgical procedure, they signed off the case. Neurologist on the case for altered mental status, he is fully awake and oriented currently. EEG is normal Objective - Vital Signs Vital signs: Vital Signs Temp 99.0 F 07/29/20 08:00 Pulse 100 07/29/20 08:00 Resp 18 07/29/20 08:00 BP 88/54 05/31/21 08:00 Pulse Ox 91 L 07/29/20 08:00 Intake & Output 07/28/20 07/29/20 07/29/20 18:59 06:59 18:59 Intake Total 720 600 Output Total 1400 1200 Balance -680 -1200 600 Weight 87 kg 87 kg Intake: Oral 720 600 Output: Urine 1400 1200 Other: Voiding Method Indwelling Catheter Indwelling Catheter # Voids 1 2 # Bowel Movements 1 1 - Exam GENERAL: The patient is alert and oriented x3, not in any acute distress. Well developed, well nourished. HEENT: Pupils are round and equally reacting to light. EOMI. No scleral icterus. No conjunctival pallor. Normocephalic, atraumatic. No pharyngeal erythema. No thyromegaly. CARDIOVASCULAR: S1 and S2 present. No murmurs, rubs, or gallops. PULMONARY: Chest is clear to auscultation, no wheezing or crackles. ABDOMEN: Soft, nontender, nondistended, normoactive bowel sounds. No palpable organomegaly. MUSCULOSKELETAL: No joint swelling or deformity. EXTREMITIES: No cyanosis, clubbing, or pedal edema. Left second and third toe gangrene and nonhealing left heel wound, with some dusky discoloration of the rest of the foot -NEUROLOGICAL: Gross neurological examination did not reveal any focal deficits. SKIN: No rashes. No petechiae - Labs CBC & Chem 7: 07/29/20 08:05 07/29/20 08:05 Labs: Abnormal Lab Results - Last 24 Hours (Table) 07/28/20 07/28/20 07/29/20 Range/Units 16:27 20:19 06:49 WBC (3.8-10.6) k/uL RBC (4.30-5.90) m/uL Hgb (13.0-17.5) gm/dL Hct (39.0-53.0) % Neutrophils # (1.3-7.7) k/uL Sodium (137-145) mmol/L BUN (9-20) mg/dL Creatinine (0.66-1.25) mg/dL Glucose (74-99) mg/dL POC Glucose (mg/dL) 267 H 268 H 262 H (75-99) mg/dL Calcium (8.4-10.2) mg/dL 07/29/20 07/29/20 07/29/20 Range/Units 08:05 08:05 11:56 WBC 15.3 H (3.8-10.6) k/uL RBC 3.88 L (4.30-5.90) m/uL Hgb 11.5 L (13.0-17.5) gm/dL Hct 34.8 L (39.0-53.0) % Neutrophils # 12.8 H (1.3-7.7) k/uL Sodium 134 L (137-145) mmol/L BUN 8 L (9-20) mg/dL Creatinine 0.54 L (0.66-1.25) mg/dL Glucose 258 H (74-99) mg/dL POC Glucose (mg/dL) 283 H (75-99) mg/dL Calcium 8.2 L (8.4-10.2) mg/dL Microbiology - Last 24 Hours (Table) 07/25/20 14:27 Blood Culture - Preliminary Blood No Growth after 72 hours 07/25/20 14:27 Blood Culture - Preliminary Blood No Growth after 72 hours Assessment and Plan Assessment: 1. Acute on chronic left foot wounds present on the toes and left heel secondary to poor circulation/peripheral arterial disease. - Patient is awaiting bypass; may proceed with surgical procedure per cardiology service - Patient remains on IV antibiotics in form of Vancomycin and Unasyn 2. Significant peripheral arterial disease - Continue with aspirin, Lipitor 3. Coronary artery disease with stent. Patient has no active cardiac symptoms aspirin. Check 2-D echo. Lipitor 4. Diabetic peripheral neuropathy 5. Diabetes mellitus type 2, chronically on insulin Uncontrolled with diabetic nonketotic hyperosmolar hyperglycemia IV fluids. Follow Accu-Cheks 6. Acute metabolic encephalopathy multifactorial Continue with IV fluids antibiotics DVT prophylaxis; SCDs CODE STATUS; full code
[2020-07-29] MEDS: HYDROmorphone 1 MG/ML 1 ML SYRINGE IVP PRN (15:06)
--- NOTE | 2020-07-29 16:35 | P.PN ---
Subjective Progress Note Date: 07/29/20 Principal diagnosis: Left lower extremity critical limb ischemia Patient was seen and examined. Per nursing he has become more altered and is confused. He pulled his Vegas catheter and had to have it replaced. He is currently urinating blood clots. Per nursing his foot is stable. He denies any fevers, chills, chest pain or shortness of breath. Objective - Vital Signs Vital signs: Vital Signs Temp 99.0 F 07/29/20 08:00 Pulse 100 07/29/20 08:00 Resp 18 07/29/20 08:00 BP 88/54 07/29/20 08:00 Pulse Ox 91 L 07/29/20 08:00 Intake & Output 07/28/20 07/29/20 07/29/20 18:59 06:59 18:59 Intake Total 720 720 Output Total 1400 1200 500 Balance -680 -1200 220 Weight 87 kg 87 kg Intake: Oral 720 720 Output: Urine 1400 1200 500 Other: Voiding Method Indwelling Catheter Indwelling Catheter # Voids 1 2 # Bowel Movements 1 1 1 - Exam General- pleasant, cooperative, lethargic male, NAD, confused HEENT- PERRL, EOMI, No scleral icterus CV- Regular rate Pulm- Clear, no retractions Abd- soft, non distended Ext- left lower extremity with nonpalpable DP or PT pulses. Monophasic signals. Left second and third toe is necrotic with minimal erythema and edema. Neurologic- No focal deficits, sensation and strength grossly intact - Labs CBC & Chem 7: 07/29/20 08:05 07/29/20 08:05 Labs: Abnormal Lab Results - Last 24 Hours (Table) 07/28/20 07/29/20 07/29/20 Range/Units 20:19 06:49 08:05 WBC 15.3 H (3.8-10.6) k/uL RBC 3.88 L (4.30-5.90) m/uL Hgb 11.5 L (13.0-17.5) gm/dL Hct 34.8 L (39.0-53.0) % Neutrophils # 12.8 H (1.3-7.7) k/uL Sodium (137-145) mmol/L BUN (9-20) mg/dL Creatinine (0.66-1.25) mg/dL Glucose (74-99) mg/dL POC Glucose (mg/dL) 268 H 262 H (75-99) mg/dL Calcium (8.4-10.2) mg/dL 07/29/20 07/29/20 Range/Units 08:05 11:56 WBC (3.8-10.6) k/uL RBC (4.30-5.90) m/uL Hgb (13.0-17.5) gm/dL Hct (39.0-53.0) % Neutrophils # (1.3-7.7) k/uL Sodium 134 L (137-145) mmol/L BUN 8 L (9-20) mg/dL Creatinine 0.54 L (0.66-1.25) mg/dL Glucose 258 H (74-99) mg/dL POC Glucose (mg/dL) 283 H (75-99) mg/dL Calcium 8.2 L (8.4-10.2) mg/dL Microbiology - Last 24 Hours (Table) 07/25/20 14:27 Blood Culture - Preliminary Blood No Growth after 72 hours 07/25/20 14:27 Blood Culture - Preliminary Blood No Growth after 72 hours Assessment and Plan Assessment: #1 left lower extremity critical limb ischemia Brice classification 5 #2 left toe wounds #3 coronary artery disease with history of stenting #4 type 2 diabetes with diabetic neuropathy Plan: Continue medical management. Patient is scheduled for femoral tibial artery bypass on Wednesday with Dr. Weinstein as long as he is still cleared per medicine
[2020-07-29 16:53] LABS: Glucose,Whole Blood 333 mg/dL (75-99)
[2020-07-29 20:24] LABS: Glucose,Whole Blood 308 mg/dL (75-99)
[2020-07-29] MEDS: LORazepam 2 MG/ML INJ IV PRN (21:01)
--- NOTE | 2020-07-30 00:34 | PN ---
PROGRESS NOTE DATE OF SERVICE: 07/29/2020 REASON FOR FOLLOWUP: Left foot wound and cellulitis. INTERVAL HISTORY: Patient has been running a low-grade fever of 100.2. The patient is hemodynamically stable. He is breathing comfortably. No chest pain, shortness of breath or cough. No abdominal pain. No worsening pain to the left foot. PHYSICAL EXAMINATION: Blood pressure 109/67, pulse 80, temperature 100.2. He is 94% on room air. General description is an elderly male lying in in no distress. Respiratory system: Unlabored breathing, clear to auscultation anteriorly. Heart S1, S2. Regular rate and rhythm. Abdomen is soft. Left 2nd and 3rd with some swelling and redness on the foot. No fever. No purulent drainage was noticed. LABS: Hemoglobin 11.4, white count 15.3, BUN of 8, creatinine 0.54. Blood culture has been negative. DIAGNOSTIC IMPRESSION AND PLAN: Patient with left second and third toe and gangrenous changes of cellulitis of the left foot and left heel gangrene in this patient who did have significant PAD. Currently waiting for the chronic redness and scheduled for a femoral aortic tibial bypass graft on Wednesday. Continue supportive care. Continue current antibiotic form of vancomycin and Unasyn for underlying cellulitis. Prognosis remains to be guarded. MMODL / IJN: [id number] /
[2020-07-30] MEDS ORDERED: VANCOMYCIN TROUGH DUE 1 EACH MISC MISCELLANE ONE (05:00)
[2020-07-30] MEDS: SODIUM CHLORIDE 0.9% 1,000 ML IV SCH ×3 (05:29→17:27)
[2020-07-30 05:43] LABS: African American GFR (CKD) >90 (>60 ml/min/1.73 sqM); Non-African American GFR(CKD) >90 (>60 ml/min/1.73 sqM)
[2020-07-30 06:12] LABS: Glucose,Whole Blood 272 mg/dL (75-99)
[2020-07-30] MEDS: VANCOMYCIN 1,500 MG in SODIUM CHLORIDE 0.9% 250 ML IVPB SCH ×3 (06:19→22:36)
[2020-07-30] MEDS: INSULIN ASPART (NovoLOG) 100 UNIT/ML VIAL SQ SCH ×4 (06:19→20:29)
[2020-07-30] MEDS: HYDROcodone/APAP 10-325MG 1 EACH TAB PO PRN ×2 (06:25→17:00)
[2020-07-30 07:16] LABS: Glucose,Whole Blood 246 mg/dL (75-99)
[2020-07-30] MEDS: AMPICILLIN-SULBACTAM 3 GM in SODIUM CHLORIDE 0.9% 100 ML IVPB SCH ×2 (09:39→17:26)
[2020-07-30] MEDS: INSULIN DETEMIR (LEVEMIR) 100 UNIT/ML SYR SQ SCH (09:39)
[2020-07-30] MEDS: ENOXAPARIN 40 MG/0.4 ML SYRINGE SQ SCH (09:40)
[2020-07-30] MEDS: HYDROmorphone 1 MG/ML 1 ML SYRINGE IVP PRN ×2 (09:44→20:29)
--- NOTE | 2020-07-30 11:44 | P.PN ---
Subjective 70-year-old patient with history of the left foot and is due for a bypass by Dr. Aponte of the vascular surgeon. He was admitted for cardiology clearance. Patient's left heel wound and told wounds have been progressively getting worse in terms of increasing pain and difficulty to walk. Patient's appetite is okay. Denies any fever and chills. Chronic stable medical conditions include diabetes mellitus requiring insulin, coronary artery disease, peripheral neuropathy osteoarthritis. Patient has known peripheral arterial disease. 07/28/2020 Patient is seen and evaluated in room at bedside; denies any complaints of chest pain, shortness of breath fever or chills Vital signs are reviewed with temperature of 98.8, pulse 82, respirations 16 and blood pressure 100/56 with SpO2 of 95% Patient has bilateral superficial femoral artery occlusion and ischemic rest pain in the left lower extremity with a nonhealing wound; patient remains on IV antibiotics and awaits bypass surgery; cardiology on board and patient has been cleared for femoral to tibial artery bypass; vascular surgery on board and planning surgery on Wednesday; vein mapping has been completed 07/29/2020 This is a pleasant 70 years old male who presents to the emergency room on 07/25 for worsening left foot pain and swelling, who has been evaluated by vascular surgeon Dr. Aponte to about 4-6 weeks ago and was consented for right antibiotics with undergoing workup for possible revascularization surgery however he had problems with obtaining cardiology consult, therefore he was told to come to emergency room when he visited his primary care doctor. Patient states that his PCP is Dr. Kvng Ochoa per patient. On admission also there was concern for black discoloration of the toes and heel. Patient currently is covered with 40 mg of subcutaneous Lovenox Also he is on broad-spectrum antibiotics in the form of Unasyn and IV vancomycin per ID team. Normal saline at 1 30 mL/h Vascular surgery team and the planning for bypass surgery on this coming Wednesday. Cardiology team about the patient with no angina, arrhythmia or overt heart failure symptoms and they recommended patient to proceed with surgical procedure, they signed off the case. Neurologist on the case for altered mental status, he is fully awake and oriented currently. EEG is normal 07/30/2020 Patient is awake and alert today, yesterday patient pulled his Vegas catheter by accident, there was concern for confusion, today he was placed on Seroquel as needed for agitation and bedside nurse informed. Other than that he does not have any new complaint, distal went in for bypass surgery tomorrow regarding his left heel wound and second and third toe gangrene. Vegas catheter is in place and draining yellow urine. Yesterday he needed 20 units of extra units of insulin via ISS, we are going to start him on Levemir 10 units today. At least continue on Unasyn and IV vancomycin and normal saline at 1:30 milliliters per hour. He is on Lovenox 40 mg daily Objective - Vital Signs Vital signs: Vital Signs Temp 97.6 F 07/30/20 08:00 Pulse 87 07/30/20 08:00 Resp 18 07/30/20 04:00 BP 106/68 07/30/20 08:00 Pulse Ox 97 07/30/20 08:00 Intake & Output 07/29/20 07/30/20 07/30/20 18:59 06:59 18:59 Intake Total 840 480 Output Total 1950 2100 300 Balance -1110 -2100 180 Weight 86 kg Intake: Oral 840 480 Output: Urine 1950 2100 300 Uretheral (Vegas) 500 Other: Voiding Method Indwelling Catheter Indwelling Catheter Indwelling Catheter # Voids 2 # Bowel Movements 1 - Exam GENERAL: The patient is alert and oriented x3, not in any acute distress. Well developed, well nourished. HEENT: Pupils are round and equally reacting to light. EOMI. No scleral icterus. No conjunctival pallor. Normocephalic, atraumatic. No pharyngeal erythema. No thyromegaly. CARDIOVASCULAR: S1 and S2 present. No murmurs, rubs, or gallops. PULMONARY: Chest is clear to auscultation, no wheezing or crackles. ABDOMEN: Soft, nontender, nondistended, normoactive bowel sounds. No palpable organomegaly. MUSCULOSKELETAL: No joint swelling or deformity. EXTREMITIES: No cyanosis, clubbing, or pedal edema. Left second and third toe gangrene and nonhealing left heel wound, with some dusky discoloration of the rest of the foot -NEUROLOGICAL: Gross neurological examination did not reveal any focal deficits. SKIN: No rashes. No petechiae - Labs CBC & Chem 7: 07/29/20 08:05 07/30/20 05:21 Labs: Abnormal Lab Results - Last 24 Hours (Table) 05/31/21 05/31/21 05/31/21 Range/Units 11:56 16:51 20:09 Creatinine (0.66-1.25) mg/dL POC Glucose (mg/dL) 283 H 333 H 308 H (75-99) mg/dL 07/30/20 07/30/20 07/30/20 Range/Units 05:21 06:09 07:15 Creatinine 0.48 L (0.66-1.25) mg/dL POC Glucose (mg/dL) 272 H 246 H (75-99) mg/dL Microbiology - Last 24 Hours (Table) 07/25/20 14:27 Blood Culture - Preliminary Blood No Growth after 96 hours 07/25/20 14:27 Blood Culture - Preliminary Blood No Growth after 96 hours Assessment and Plan Assessment: 1. Acute on chronic left foot wounds present on the toes and left heel secondary to poor circulation/peripheral arterial disease. - Patient is awaiting bypass; may proceed with surgical procedure per cardiology service - Patient remains on IV antibiotics in form of Vancomycin and Unasyn 2. Significant peripheral arterial disease - Continue with aspirin, Lipitor 3. Coronary artery disease with stent. Patient has no active cardiac symptoms aspirin. Check 2-D echo. Lipitor 4. Diabetic peripheral neuropathy 5. Diabetes mellitus type 2, chronically on insulin Uncontrolled with diabetic nonketotic hyperosmolar hyperglycemia IV fluids. Follow Accu-Cheks 6. Acute metabolic encephalopathy multifactorial Continue with IV fluids antibiotics DVT prophylaxis; SCDs CODE STATUS; full code
[2020-07-30 11:50] LABS: Glucose,Whole Blood 287 mg/dL (75-99)
--- NOTE | 2020-07-30 13:11 | P.PN ---
Subjective Progress Note Date: 07/30/20 Principal diagnosis: Left lower extremity critical limb ischemia Patient is seen and examined lying in bed. He is currently getting washed up. He has had episodes of confusion. He is scheduled tomorrow with Dr. Weinstein for a femoral-tibial artery bypass. Cardiology has seen and cleared the patient to proceed. Objective - Vital Signs Vital signs: Vital Signs Temp 97.6 F 07/30/20 08:00 Pulse 87 07/30/20 08:00 Resp 18 07/30/20 04:00 BP 106/68 07/30/20 08:00 Pulse Ox 97 07/30/20 08:00 Intake & Output 07/29/20 07/30/20 07/30/20 18:59 06:59 18:59 Intake Total 840 480 Output Total 1950 2100 300 Balance -1110 -2100 180 Weight 86 kg Intake: Oral 840 480 Output: Urine 1949 2100 300 Uretheral (Vegas) 500 Other: Voiding Method Indwelling Catheter Indwelling Catheter Indwelling Catheter # Voids 2 # Bowel Movements 1 - Exam General appearance: The patient is alert, confused, in no acute distress. HET: Head is normocephalic and atraumatic. Pupils are equal and reactive. Oropharynx is clear without lesions. Neck: Supple without lymphadenopathy. Trachea midline. Extremities: Left lower extremity with nonpalpable DP or PT pulses. Monophasic signals. Left second and third toe is necrotic with minimal erythema and edema. Neurological: No focal deficits. Strength and sensation are grossly intact. - Labs CBC & Chem 7: 07/29/20 08:05 07/30/20 05:21 Labs: Abnormal Lab Results - Last 24 Hours (Table) 07/29/20 07/29/20 07/30/20 Range/Units 16:51 20:09 05:21 Creatinine 0.48 L (0.66-1.25) mg/dL POC Glucose (mg/dL) 333 H 308 H (75-99) mg/dL 07/30/20 07/30/20 07/30/20 Range/Units 06:09 07:15 11:47 Creatinine (0.66-1.25) mg/dL POC Glucose (mg/dL) 272 H 246 H 287 H (75-99) mg/dL Microbiology - Last 24 Hours (Table) 07/25/20 14:27 Blood Culture - Preliminary Blood No Growth after 96 hours 07/25/20 14:27 Blood Culture - Preliminary Blood No Growth after 96 hours Assessment and Plan Assessment: 1. Left lower extremity critical limb ischemia [place] classification 5 2. Left total wounds 3. Coronary artery disease with history of stenting 4. Type 2 diabetes with diabetic neuropathy Plan: 1. Continue with medical management. 2. Nothing by mouth after midnight. 3. Cardiology has been consulted for cardiac clearance, patient has been cleared to proceed with femoral tibial artery bypass 4. Patient to undergo femoral-tibial artery bypass tomorrow with Dr. Weinstein The impression and plan of care has been dictated as directed. Dr. Weinstein I performed a history and examination of this patient, discussed the same with the dictator. I agree with the dictator's note ,documented as a scribe. Any additional findings or plans will be noted.
[2020-07-30 17:03] LABS: Glucose,Whole Blood 361 mg/dL (75-99)
[2020-07-30 19:47] LABS: Glucose,Whole Blood 305 mg/dL (75-99)
[2020-07-31] MEDS: SODIUM CHLORIDE 0.9% 1,000 ML IV SCH ×3 (00:39→16:52)
[2020-07-31] MEDS: HYDROmorphone 1 MG/ML 1 ML SYRINGE IVP PRN ×2 (00:39→20:40)
[2020-07-31] MEDS: AMPICILLIN-SULBACTAM 3 GM in SODIUM CHLORIDE 0.9% 100 ML IVPB SCH ×3 (00:40→16:51)
[2020-07-31] MEDS: QUEtiapine 25 MG TAB PO PRN (00:40)
--- NOTE | 2020-07-31 01:43 | PN ---
PROGRESS NOTE DATE OF SERVICE: 07/30/2020 REASON FOR FOLLOWUP: Left foot ulcer and cellulitis. INTERVAL HISTORY: The patient did have a low grade fever yesterday, however, the patient afebrile since then. The patient is breathing comfortably. Denies any chest pain, no cough. No abdominal pain. Did have pain to the left foot, but no worsening. PHYSICAL EXAMINATION: Blood pressure 109/53 with a pulse of 87, temperature 99.4. He is 93% on room air. General description is an elderly male lying in in no distress. Respiratory system: Unlabored breathing, clear to auscultation anteriorly. Heart S1, S2. Regular rate and rhythm. Abdomen soft, no tenderness. Left second and third toe with ischemic changes with ulcer to the left heel. Some redness. No drainage. LABS: No new labs have been obtained. Blood culture has been negative. DIAGNOSTIC IMPRESSION AND PLAN: Patient with left second and third toe ischemia with left heel ulcer for a vascular evaluation procedure tomorrow. Continue the vanco and Unasyn, adjustment on the basis of clinical response. Continue supportive care. MMODL / IJN: [id number] /
[2020-07-31] MEDS: VANCOMYCIN 1,500 MG in SODIUM CHLORIDE 0.9% 250 ML IVPB SCH ×3 (06:26→21:54)
[2020-07-31] MEDS: INSULIN DETEMIR (LEVEMIR) 100 UNIT/ML SYR SQ SCH (06:28)
[2020-07-31 06:56] LABS: Glucose,Whole Blood 279 mg/dL (75-99)
[2020-07-31] MEDS: INSULIN ASPART (NovoLOG) 100 UNIT/ML VIAL SQ SCH ×4 (06:58→20:37)
[2020-07-31 10:17] LABS: Basophils # (A) 0.1 k/uL (0-0.2); Basophils % (A) 0 %; Eosinophils # (A) 0.5 k/uL (0-0.7); Eosinophils % (A) 4 %; HCT 34.3 % (39.0-53.0); Lymphocytes % (A) 14 %; MCHC 32.1 g/dL (31.0-37.0); MCV 90.5 fL (80.0-100.0); Monocytes # (A) 0.5 k/uL (0-1.0); Monocytes % (A) 4 %; Neutrophils # (A) 10.6 k/uL (1.3-7.7); Neutrophils % (A) 77 %; Platelet Count 437 k/uL (150-450); RBC 3.79 m/uL (4.30-5.90); WBC 13.8 k/uL (3.8-10.6)
[2020-07-31 10:39] LABS: African American GFR (CKD) >90 (>60 ml/min/1.73 sqM); Anion Gap 5 mmol/L; Blood Urea Nitrogen 8 mg/dL (9-20); Calcium 8.4 mg/dL (8.4-10.2); Carbon Dioxide 27 mmol/L (22-30); Chloride 102 mmol/L (98-107); Glucose 232 mg/dL (74-99); Non-African American GFR(CKD) >90 (>60 ml/min/1.73 sqM); Potassium 3.7 mmol/L (3.5-5.1); Sodium 134 mmol/L (137-145)
[2020-07-31 11:49] LABS: Glucose,Whole Blood 218 mg/dL (75-99)
[2020-07-31] MEDS ORDERED: ONDANSETRON 4 MG/2 ML VIAL IVP ONE (12:14)
[2020-07-31] MEDS ORDERED: DEXAMETHASONE SOD PHOSPHATE 4 MG/ML 1 ML VIAL IV ONE (12:14)
--- NOTE | 2020-07-31 14:16 | P.PN ---
Progress Note - Text Progress Note Date: 07/31/20 Chief Complaint: Left foot pain History of presenting complaint: This is a 70-year-old patient who follows with Dr. Fox. Patient lives by himself. Patient is of the left foot and is due for a bypass by Dr. Aponte of the vascular surgeon. He was admitted for cardiology clearance. Patient's left heel wound and told wounds have been progressively getting worse in terms of increasing pain and difficulty to walk. Patient's appetite is okay. Denies any fever and chills. Chronic stable medical conditions include diabetes mellitus requiring insulin, coronary artery disease, peripheral neuropathy osteoarthritis. Patient has known peripheral arterial disease. Admitted with acute and chronic left foot wounds, started on IV vancomycin and Unasyn. Acute nonketotic hyperosmolar hyperglycemia-put on IV fluids. Lactic acidosis. Acute metabolic encephalopathy multifactorial including infection. Being followed by vascular surgery and infectious disease. Today: Laying in bed. Nothing by mouth. Awaiting surgery this afternoon. No new issues. Review of systems: Was done for constitutional, cardiovascular, GI, pulmonary. relevant finding as above Active Medications Hydrocodone Bitart/Acetaminophen (Hydrocodone/Apap 10-325mg 1 Each Tab) 1 each PO Q6H PRN PRN Reason: Pain Last Admin: 07/30/20 17:00 Dose: 1 each Documented by: Enoxaparin Sodium (Enoxaparin 40 Mg/0.4 Ml Syringe) 40 mg SQ DAILY [facility] Last Admin: 07/30/20 09:40 Dose: 40 mg Documented by: Hydromorphone HCl (Hydromorphone 1 Mg/Ml 1 Ml Syringe) 1 mg IVP Q3HR PRN PRN Reason: Severe Pain Last Admin: 07/31/20 00:39 Dose: 1 mg Documented by: Sodium Chloride (Saline 0.9%) 1,000 mls @ 130 mls/hr IV .Q7H42M [facility] Last Admin: 07/31/20 10:32 Dose: 130 mls/hr Documented by: Ampicillin Sodium/Sulbactam (Sodium 3 gm/ Sodium Chloride) 100 mls @ 200 mls/hr IVPB Q8HR [facility] Last Admin: 07/31/20 10:32 Dose: 200 mls/hr Documented by: Vancomycin HCl 1,500 mg/ (Sodium Chloride) 250 mls @ 125 mls/hr IVPB Q8H [facility] Last Admin: 07/31/20 06:26 Dose: 125 mls/hr Documented by: Lactated Ringer's (Lactated Ringers) 1,000 mls @ 20 mls/hr IV .Q24H [facility] Insulin Aspart (Insulin Aspart (Novolog) 100 Unit/Ml Vial) 0 unit SQ ACHS [facility]; Protocol Last Admin: 07/31/20 12:46 Dose: 3 unit Documented by: Insulin Detemir (Insulin Detemir (Levemir) 100 Unit/Ml Syr) 10 unit SQ DAILY@0700 [facility] Last Admin: 07/31/20 06:28 Dose: Not Given Documented by: Lorazepam (Lorazepam 2 Mg/Ml Inj) 1 mg IV Q8HR PRN PRN Reason: Agitation Last Admin: 07/29/20 21:01 Dose: 1 mg Documented by: Naloxone HCl (Naloxone 0.4 Mg/Ml 1 Ml Vial) 0.2 mg IV Q2M PRN PRN Reason: Opioid Reversal Quetiapine Fumarate (Quetiapine 25 Mg Tab) 25 mg PO BID PRN PRN Reason: Agitation or Acute Psychosis Last Admin: 07/31/20 00:40 Dose: 25 mg Documented by: Past medical history to include: Coronary artery disease with stent, diabetes, GERD, hypertension, prostatitis, peripheral neuropathy, anxiety depression Social history: Denies alcohol. Lives alone. Former smoker. Family history: Reviewed, noncontributory to presentation Physical examination: VITAL SIGNS: 99.2, 79, 20, 115/76, 96% room air GENERAL:, laying in bed, awake, tired EYES: Pupils equal. Conjunctiva normal. NECK: JVD not raised; masses not palpable. HEART: First and second heart sounds are normal; no edema. LUNGS:[ Respiratory rate normal; decreased breath sounds. ABDOMEN: Soft, nontender, liver spleen not palpable, no masses palpable. PSYCH: Lethargic but answers questions. NEUROLOGICAL: [Cranial nerves grossly intact; no facial asymmetry, decreased sensation distally MUSCULOSKELETAL: wound to the left fourth toe discolored tender and also one on the left heel. Absent dorsalis pedis INVESTIGATIONS, reviewed in the clinical context: July 31: WBC 13.8 hemoglobin 11 platelets 437 potassium 3.7 creatinine 0.55 2-D echo: EF 55% no wall motion abnormality. WBC 17.7 hemoglobin 11.5 potassium 3.3 creatinine 0.64 WBC 16.8 hemoglobin 12.2 platelets 453 sodium 1:30 potassium 5.1 creatinine 0.67 Glucose 614 lactic acid 3.4 Serum acetone negative Coronavirus [PCR: Not detected Doppler ultrasound of left lower extremity: Negative for DVT Assessment and plan: -Acute on chronic left foot wounds present on the toes and left heel secondary to poor circulation/peripheral arterial disease. Patient is awaiting bypass was awaiting a cardiology clearance. Symptoms have gotten worse precipitating the admission.-Slow to respond Possible secondary infection with possible sepsis. IV fluids. Vancomycin. IV Unasyn -Significant peripheral arterial disease aspirin, Lipitor. Pending femorally-tibial artery bypass today -Coronary artery disease with stent. Patient has no active cardiac symptoms aspirin. Lipitor -Diabetic peripheral neuropathy -Diabetes mellitus type 2, chronically on insulin-uncontrolled with hyperglycemia Uncontrolled with diabetic nonketotic hyperosmolar hyperglycemia IV fluids. Follow Accu-Cheks -GERD Pepcid -Lactic acidosis possibly combination of sepsis and type II IV fluids, antibiotics -Acute metabolic encephalopathy multifactorial-likely contribution from infection.-Slow to improve Continue with IV fluids antibiotics Continue IV vancomycin, IV Unasyn. Pending bypass surgery this afternoon..
[2020-07-31] MEDS: ENOXAPARIN 40 MG/0.4 ML SYRINGE SQ SCH (14:31)
--- NOTE | 2020-07-31 15:05 | P.PN ---
Subjective Progress Note Date: 07/31/20 Principal diagnosis: Left lower extremity critical limb ischemia Patient is seen and examined lying in bed. He is scheduled to go for a left femoral to below the knee bypass tomorrow with Dr. Weinstein. Denies any acute changes through the night. Still has pain in the left lower extremity, no fevers or chills reported. Objective - Vital Signs Vital signs: Vital Signs Temp 99.2 F 07/31/20 11:47 Pulse 79 07/31/20 11:47 Resp 20 07/31/20 11:47 BP 115/76 07/31/20 11:47 Pulse Ox 96 07/31/20 11:47 Intake & Output 07/30/20 07/31/20 07/31/20 18:59 06:59 18:59 Intake Total 720 10 Output Total 1100 3100 Balance -380 -3100 10 Weight 88.5 kg 88.5 kg Intake: IV 10 Invasive Line 2 10 Oral 720 0 Output: Urine 1100 3100 Other: Voiding Method Indwelling Catheter Indwelling Catheter Indwelling Catheter - Exam General appearance: The patient is alert, confused, in no acute distress. HET: Head is normocephalic and atraumatic. Pupils are equal and reactive. Oropharynx is clear without lesions. Neck: Supple without lymphadenopathy. Trachea midline. Extremities: Left lower extremity with nonpalpable DP or PT pulses. Monophasic signals. Left second and third toe is necrotic with minimal erythema and edema. Neurological: No focal deficits. Strength and sensation are grossly intact. - Labs CBC & Chem 7: 07/31/20 09:44 07/31/20 09:44 Labs: Abnormal Lab Results - Last 24 Hours (Table) 07/30/20 07/30/20 07/31/20 Range/Units 17:01 19:45 06:54 WBC (3.8-10.6) k/uL RBC (4.30-5.90) m/uL Hgb (13.0-17.5) gm/dL Hct (39.0-53.0) % Neutrophils # (1.3-7.7) k/uL Sodium (137-145) mmol/L BUN (9-20) mg/dL Creatinine (0.66-1.25) mg/dL Glucose (74-99) mg/dL POC Glucose (mg/dL) 361 H 305 H 279 H (75-99) mg/dL 07/31/20 07/31/20 07/31/20 Range/Units 09:44 09:44 11:45 WBC 13.8 H (3.8-10.6) k/uL RBC 3.79 L (4.30-5.90) m/uL Hgb 11.0 L (13.0-17.5) gm/dL Hct 34.3 L (39.0-53.0) % Neutrophils # 10.6 H (1.3-7.7) k/uL Sodium 134 L (137-145) mmol/L BUN 8 L (9-20) mg/dL Creatinine 0.55 L (0.66-1.25) mg/dL Glucose 232 H (74-99) mg/dL POC Glucose (mg/dL) 218 H (75-99) mg/dL Microbiology - Last 24 Hours (Table) 07/25/20 14:27 Blood Culture - Preliminary Blood No Growth after 120 hours 07/25/20 14:27 Blood Culture - Preliminary Blood No Growth after 120 hours Assessment and Plan Assessment: 1. Left lower extremity critical limb ischemia [place] classification 5 2. Left total wounds 3. Coronary artery disease with history of stenting 4. Type 2 diabetes with diabetic neuropathy Plan: 1. Continue with medical management. 2. Consistent carbohydrate diet, Nothing by mouth after midnight. 3. Cardiology has been consulted for cardiac clearance, patient has been cleared to proceed with femoral tibial artery bypass 4. Patient to undergo femoral-tibial artery bypass tomorrow with Dr. Weinstein 5. CBC and BMP The impression and plan of care has been dictated as directed. Dr. Vegas I performed a history and examination of this patient, discussed the same with the dictator. I agree with the dictator's note ,documented as a scribe. Any additional findings or plans will be noted.
[2020-07-31 16:46] LABS: Glucose,Whole Blood 299 mg/dL (75-99)
[2020-07-31 20:25] LABS: Glucose,Whole Blood 303 mg/dL (75-99)
--- NOTE | 2020-07-31 22:23 | PN ---
PROGRESS NOTE DATE OF SERVICE: 07/31/2020 REASON FOR FOLLOWUP: Left leg ischemic wound and cellulitis. INTERVAL HISTORY: Patient is afebrile, has been breathing comfortably. The patient denies having any chest pain. No shortness of breath or cough. No abdominal pain or any worsening pain to the left leg. PHYSICAL EXAMINATION: Blood pressure 115/76, pulse of 79, temperature 98.2. He is 96% on room air. General description is an elderly male lying in in no distress. Respiratory system: Unlabored breathing, clear to auscultation anteriorly. Heart S1, S2. Regular rate and rhythm. ABDOMEN: Soft. Left second and third toe with gangrenous changes and left heel wound. Redness slightly decreased. LABS: Hemoglobin is 11, white count 13.8. BUN of 8, creatinine 0.55. DIAGNOSTIC IMPRESSION AND PLAN: Patient with left foot ischemic wound and pressure to the heel area. Waiting for the bypass surgery. Continue with Unasyn and Vanco. Monitor clinical course closely. Continue supportive care. MMODL / IJN: [id number] /
[2020-08-01] MEDS: AMPICILLIN-SULBACTAM 3 GM in SODIUM CHLORIDE 0.9% 100 ML IVPB SCH ×3 (00:13→17:30)
[2020-08-01] MEDS: QUEtiapine 25 MG TAB PO PRN ×2 (00:13→17:19)
[2020-08-01] MEDS: SODIUM CHLORIDE 0.9% 1,000 ML IV SCH ×3 (01:00→17:18)
[2020-08-01] MEDS: VANCOMYCIN 1,500 MG in SODIUM CHLORIDE 0.9% 250 ML IVPB SCH ×2 (06:04→17:18)
[2020-08-01 06:28] LABS: Glucose,Whole Blood 300 mg/dL (75-99)
[2020-08-01] MEDS: INSULIN ASPART (NovoLOG) 100 UNIT/ML VIAL SQ SCH ×5 (06:39→21:14)
[2020-08-01] MEDS: INSULIN DETEMIR (LEVEMIR) 100 UNIT/ML SYR SQ SCH ×2 (08:11→21:14)
[2020-08-01] MEDS ORDERED: IV FLUID CONTINUATION 1,000 ML IV ONE ×2 (09:14→09:29)
[2020-08-01 09:23] LABS: Glucose,Whole Blood 234 mg/dL (75-99)
[2020-08-01] MEDS ORDERED: MIDAZOLAM 2 MG/2 ML VIAL IVP ONE (09:51)
[2020-08-01] MEDS ORDERED: SUCCINYLCHOLINE CHLORIDE 100 MG/5 ML SYR IV ONE (10:15)
[2020-08-01] MEDS ORDERED: LIDOCAINE 1% INJ 10MG/ML (20 ML MDV) ONE (10:15)
[2020-08-01] MEDS ORDERED: INSULIN REGULAR 100 UNIT/ML VIAL ONE (10:15)
[2020-08-01] MEDS ORDERED: HEPARIN SODIUM,PORCINE 10,000 UNIT/ML 1 ML VIAL ONE (10:15)
[2020-08-01] MEDS ORDERED: HYDROmorphone (PF) 1 MG/ML ONE (10:15)
[2020-08-01] MEDS ORDERED: ROCURONIUM 10 MG/ML (5 ML VIAL) IV ONE (10:15)
[2020-08-01] MEDS ORDERED: fentaNYL (PF) 50 MCG/ML 2 ML AMP ONE (10:15)
[2020-08-01] MEDS ORDERED: MIDAZOLAM 2 MG/2 ML VIAL ONE (10:15)
[2020-08-01] MEDS ORDERED: NEOSTIGMINE 1 MG/ML 10 ML VIAL ONE (10:15)
[2020-08-01] MEDS ORDERED: PROTAMINE SULFATE 10 MG/ML 5 ML VIAL IV ONE (10:15)
[2020-08-01] MEDS ORDERED: PROPOFOL 10 MG/ML 20 ML VIAL IV ONE (10:15)
[2020-08-01] MEDS ORDERED: PHENYLEPHRINE-0.9% NACL SYG 1,000 MCG/10 ML SYRINGE ONE (10:15)
[2020-08-01] MEDS ORDERED: GLYCOPYRROLATE 0.2 MG/ML 2 ML VIAL ONE (10:15)
[2020-08-01] MEDS ORDERED: SODIUM CHLORIDE 0.9% 1,000 ML IV ONE ×2 (11:11)
[2020-08-01 11:23] LABS: Glucose,Whole Blood 221 mg/dL (75-99)
--- NOTE | 2020-08-01 13:31 | PN ---
PROGRESS NOTE DATE OF SERVICE: 08/01/2020 REASON FOR FOLLOWUP: Left lower extremity ischemic wound cellulitis. INTERVAL HISTORY: Patient is currently afebrile. The patient is breathing comfortably. Denies having any chest pain. No shortness of breath or cough. No abdominal pain or any worsening pain to the left foot and heel area. Currently waiting for the left lower extremity bypass surgery. PHYSICAL EXAMINATION: VITAL SIGNS: Blood pressure 97/64, pulse of 50, temperature 98.3, he is 98% on room air. GENERAL DESCRIPTION: An elderly male lying in bed in no distress. RESPIRATORY SYSTEM: Unlabored breathing, clear to auscultation anteriorly. HEART: S1, S2. Regular rate and rhythm. ABDOMEN: Soft, no tenderness. EXTREMITIES: Left second and third toes with necrotic changes and heel with necrotic wounds. Redness of the foot slightly decreased. LABS: No new labs have been obtained today. White count was 13 as of yesterday. Blood culture has been negative. DIAGNOSTIC IMPRESSION AND PLAN: Patient with left foot ischemia changes waiting for the bypass surgery and concern for cellulitis. Covered with empiric antibiotic form of vancomycin and Zosyn to continue while watching his kidney function closely. Continue supportive care. MMODL / IJN: [id number] /
[2020-08-01] MEDS ORDERED: LACTATED RINGERS 1,000 ML IV ONE ×3 (13:40→13:45)
[2020-08-01 14:23] LABS: Glucose,Whole Blood 241 mg/dL (75-99)
[2020-08-01] MEDS ORDERED: FAMOTIDINE 20 MG TAB PO PRN (15:26)
[2020-08-01 15:42] LABS: Glucose,Whole Blood 219 mg/dL (75-99)
--- NOTE | 2020-08-01 15:45 | P.OP ---
Date of Procedure: 08/01/20 Preoperative Diagnosis: #1: Left femoral, popliteal and tibial artery occlusive disease with single- vessel runoff. #2: Ischemic changes of the left heel first metatarsal head as well as the second and third toes of the left foot. Postoperative Diagnosis: Same. Procedure(s) Performed: #1: Left femoral to peroneal in situ vein bypass graft. #2: Debridement of left heel, first metatarsal head area as well as the second and third toes of left foot utilizing a surgical scalpel and scissor technique. Implants: None. Anesthesia: GETA Surgeon: Maldonado Webb Estimated Blood Loss (ml): 200 IV fluids (ml): 2,150 Urine output (ml): 2,000 Pathology: other (Culture left foot) Condition: stable Disposition: no change Indications for Procedure: Patient is a 70-year-old male with long-standing history of tobacco abuse as well as diabetes mellitus who had presented with ischemic changes of the left foot. He had undergone abdominal area with runoffs which demonstrated normal aortoiliac segments with total occlusion of the left superficial femoral artery and popliteal artery as well as the exterior tibial artery. The anterior tibial artery was significantly disease over the hernial artery was relatively spared. It was thought that surgical revascularization via femoral to peroneal in situ vein bypass graft for the patient the best chance of limb salvage. Description of Procedure: Patient was brought to the [facility] and placed in supine position and administered general endotracheal anesthesia delivered by the department of anesthesiology. Vegas catheter had previously been placed and was left in place. He was maintained on his IV antibiotic therapy. The left lower extremity as well as left lower abdominal and pelvic area sterilely prepped and draped in usual manner. Skin incision was made over the left inguinal area and carried down through subcu change tissues. Hemostasis was achieved using electrocautery. Lymphatic layer was divided laterally with electrocautery and swept medially closing the femoral sheath. The common femoral artery as well as the origins of the profundus and superficial femoral arteries were identified and encircled Vesseloops as was the origin of the common femoral artery. Excellent pulse was identified within the common femoral artery. Attention was turned to the great saphenous vein. This was identified and dissected free of investing tissues. It was dissected down to its confluence with the femoral vein. Side branches were doubly ligated with silk suture and divided between the sutures. The wound was packed with antibiotic-soaked gauze. Attention was turned to the proximal portion of the calf area where a skin incision was made medially and carried down through subcu change tissues. Care was taken to avoid damage to the great saphenous vein. The soleus muscle was taken down from its attachments to the tibia and the distal popliteal space was entered and this was followed down to the level of the peroneal artery. The peroneal artery proximally was heavily calcified however was much softer just distal to this area. It was here that the artery was encircled Vesseloops. Patient was systemically heparinized and ACT is were followed throughout the case and heparin was dosed additionally based on results of ACT monitoring. A hemostat was placed across the junction of the great saphenous vein and femoral vein. The great saphenous vein was transected and the great saphenous vein stump oversewn with Prolene suture. Stasis was assured. The vein was then mobilized and easily reach the common femoral artery without undue tension. The [place]essel[place] surrounding the profundus and superficial femoral arteries were drawn closed and a vascular clamp was utilized to occlude the common femoral artery. Arteriotomy was made and extended with Pott Herzog scissors from the distal common femoral to the origin of the superficial femoral artery. Good backbleeding through the profundus was identified and this was flushed with heparinized saline solution. The vein was spatulated to match arteriotomy and side anastomosis between the artery and the vein graft was completed with 6-0 Prolene suture. Just prior to completion of the anastomotic line the artery was backbled and flushed and no thrombus was retrieved. It should be noted that the first valve in the proximal portion of the great saphenous vein was destroyed under direct visualization. The anastomotic line was completed and flow restored through the common femoral artery into the graft and excellent pulsatile flow was identified within the graft. Attention was turned to the great saphenous vein distally where was transected. It was mobilized throughout the length of the incision side branches were ligated and divided. A LeMaitre valvulotome was utilized to destroy the valves and excellent pulsatile flow was identified at the distal end of the vein graft. It was then clamped. The [place]essel[place] surrounding the peroneal artery were drawn closed and arteriotomy was made and extended with Pott Herzog scissors. Backbleeding through the peroneal artery was identified. The vein graft easily reached the peroneal artery and the vein graft was spatulated to match arteriotomy. Care was taken to avoid any twisting. End-to-side anastomosis between the vein graft and the peroneal artery was completed with 6-0 Prolene suture placed in running fashion. Just prior to completion of the anastomotic line vein graft was flushed and no thrombus was retrieved. The anastomotic line was completed and flow restored through the vein graft and the peroneal artery. Continuous wave Doppler was utilized to interrogate the peroneal artery and excellent arterial signal was identified within the peroneal artery. Utilizing duplex ultrasound side branches of the vein graft were identified. Counter incisions were made over each of these areas and side branches were ligated. With the above findings noted and hemostasis assured all wounds were irrigated with antibiotic containing solution. Deep tissues were closed with 3-0 Vicryl dermis was closed with 4-0 Monocryl placed in running fashion. Eventually appropriate dressings were applied all wounds. Attention was turned to the left foot. The heel wound was covered with a thick eschar measuring 14 x 12 cm. This was taken down as best as possible with a surgical scalpel. The wound at the first metatarsal head medially measured 2.5 x 1.5 cm and this was also taken down to healthy-appearing tissue with a surgical scalpel. Purulent drainage was encountered and this was cultured. Both these were down to the fat layer. The toes were divided of Freeman are as best as possible although this was very tenaciously attached and no further debridement was attempted. With the above findings noted and the foot noted to be significantly pink and healthy in appearance the wounds were covered with Adaptic 4 x 4's and Kerlix. Patient tolerated the procedure well awoke without apparent complication was transferred to the recovery area in satisfactory and stable condition.
[2020-08-01] MEDS: LACTATED RINGERS 1,000 ML IV SCH ×2 (16:51→16:52)
[2020-08-01] MEDS ORDERED: HALOPERIDOL LACTATE 5 MG/ML 1 ML VIAL IM STA (17:00)
[2020-08-01 17:19] LABS: Glucose,Whole Blood 249 mg/dL (75-99)
[2020-08-01] MEDS: ENOXAPARIN 40 MG/0.4 ML SYRINGE SQ SCH (17:31)
[2020-08-01] MEDS: LORazepam 2 MG/ML INJ IV PRN (17:54)
[2020-08-01 20:17] LABS: HCT 33.2 % (39.0-53.0); HGB 10.5 gm/dL (13.0-17.5); MCH 28.8 pg (25.0-35.0); MCHC 31.6 g/dL (31.0-37.0); MCV 91.2 fL (80.0-100.0); Platelet Count 483 k/uL (150-450); RBC 3.64 m/uL (4.30-5.90); RDW 13.7 % (11.5-15.5); WBC 18.1 k/uL (3.8-10.6)
[2020-08-01 20:32] LABS: Glucose,Whole Blood 199 mg/dL (75-99)
--- NOTE | 2020-08-01 21:43 | P.PN ---
Progress Note - Text Progress Note Date: 08/01/20 Chief Complaint: Left foot pain History of presenting complaint: This is a 70-year-old patient who follows with Dr. Fox. Patient lives by himself. Patient is of the left foot and is due for a bypass by Dr. Aponte of the vascular surgeon. He was admitted for cardiology clearance. Patient's left heel wound and told wounds have been progressively getting worse in terms of increasing pain and difficulty to walk. Patient's appetite is okay. Denies any fever and chills. Chronic stable medical conditions include diabetes mellitus requiring insulin, coronary artery disease, peripheral neuropathy osteoarthritis. Patient has known peripheral arterial disease. Admitted with acute and chronic left foot wounds, started on IV vancomycin and Unasyn. Acute nonketotic hyperosmolar hyperglycemia-put on IV fluids. Lactic acidosis. Acute metabolic encephalopathy multifactorial including infection. Being followed by vascular surgery and infectious disease. Today: #1: Left femoral to peroneal in situ vein bypass graft. #2: Debridement of left heel, first metatarsal head area as well as the second and third toes of left foot . Postprocedure patient was a bit delirious. He did require some Haldol. Better now. Tired. Review of systems: Attempted for constitutional, cardiovascular, GI, pulmonary. relevant finding as above Active Medications Hydrocodone Bitart/Acetaminophen (Hydrocodone/Apap 10-325mg 1 Each Tab) 1 each PO Q6H PRN PRN Reason: Pain Last Admin: 07/30/20 17:00 Dose: 1 each Documented by: Enoxaparin Sodium (Enoxaparin 40 Mg/0.4 Ml Syringe) 40 mg SQ DAILY [facility] Last Admin: 08/01/20 17:31 Dose: 40 mg Documented by: Famotidine (Famotidine 20 Mg Tab) 20 mg PO BID PRN PRN Reason: Heartburn Hydromorphone HCl (Hydromorphone 1 Mg/Ml 1 Ml Syringe) 1 mg IVP Q3HR PRN PRN Reason: Severe Pain Last Admin: 07/31/20 20:40 Dose: 1 mg Documented by: Sodium Chloride (Saline 0.9%) 1,000 mls @ 130 mls/hr IV .Q7H42M [facility] Last Admin: 08/01/20 17:18 Dose: 130 mls/hr Documented by: Ampicillin Sodium/Sulbactam (Sodium 3 gm/ Sodium Chloride) 100 mls @ 200 mls/hr IVPB Q8HR [facility] Last Admin: 08/01/20 17:30 Dose: 200 mls/hr Documented by: Lactated Ringer's (Lactated Ringers) 1,000 mls @ 20 mls/hr IV .Q24H [facility] Last Admin: 08/01/20 16:52 Dose: Not Given Documented by: Vancomycin HCl 1,500 mg/ (Sodium Chloride) 250 mls @ 125 mls/hr IVPB Q8HR [facility] Insulin Aspart (Insulin Aspart (Novolog) 100 Unit/Ml Vial) 0 unit SQ ACHS [facility]; Protocol Last Admin: 08/01/20 21:14 Dose: 2 unit Documented by: Insulin Aspart (Insulin Aspart (Novolog) 100 Unit/Ml Vial) 8 unit SQ AC-TID [facility] Last Admin: 08/01/20 17:31 Dose: Not Given Documented by: Insulin Detemir (Insulin Detemir (Levemir) 100 Unit/Ml Syr) 40 unit SQ BID@0700,2100 [facility] Last Admin: 08/01/20 21:14 Dose: 40 unit Documented by: Lorazepam (Lorazepam 2 Mg/Ml Inj) 1 mg IV Q8HR PRN PRN Reason: Agitation Last Admin: 08/01/20 17:54 Dose: 1 mg Documented by: Miscellaneous Information (Vancomycin Trough Due 1 Each Misc) 0 each MISCELLANE DIRECTED ONE Stop: 08/02/20 15:01 Naloxone HCl (Naloxone 0.4 Mg/Ml 1 Ml Vial) 0.2 mg IV Q2M PRN PRN Reason: Opioid Reversal Quetiapine Fumarate (Quetiapine 25 Mg Tab) 25 mg PO BID PRN PRN Reason: Agitation or Acute Psychosis Last Admin: 08/01/20 17:19 Dose: 25 mg Documented by: Past medical history to include: Coronary artery disease with stent, diabetes, GERD, hypertension, prostatitis, peripheral neuropathy, anxiety depression Social history: Denies alcohol. Lives alone. Former smoker. Family history: Reviewed, noncontributory to presentation Physical examination: VITAL SIGNS: 97.2, 102, 20, 86/62, 77% on room air GENERAL:, laying in bed, lethargic, tired EYES: Pupils equal. Conjunctiva normal. NECK: JVD not raised; masses not palpable. HEART: First and second heart sounds are normal; no edema. LUNGS:[ Respiratory rate normal; decreased breath sounds. ABDOMEN: Soft, nontender, liver spleen not palpable, no masses palpable. PSYCH: Lethargic -unable to assess. MUSCULOSKELETAL: Dressing over the thigh and the left foot INVESTIGATIONS, reviewed in the clinical context: August 01: WBC 18.1 hemoglobin 10.5 platelets 483 July 31: WBC 13.8 hemoglobin 11 platelets 437 potassium 3.7 creatinine 0.55 2-D echo: EF 55% no wall motion abnormality. WBC 17.7 hemoglobin 11.5 potassium 3.3 creatinine 0.64 WBC 16.8 hemoglobin 12.2 platelets 453 sodium 1:30 potassium 5.1 creatinine 0.67 Glucose 614 lactic acid 3.4 Serum acetone negative Coronavirus [PCR: Not detected Doppler ultrasound of left lower extremity: Negative for DVT Assessment and plan: -Acute on chronic left foot wounds present on the toes and left heel secondary to poor circulation/peripheral arterial disease. Possible secondary infection with possible sepsis. IV fluids. Vancomycin. IV Unasyn August 01: Left femoral to peroneal in situ vein bypass graft. #2: Debridement of left heel, first metatarsal head area as well as the second and third toes of left foot -Significant peripheral arterial disease aspirin, Lipitor. Status post surgery today -Coronary artery disease with stent. Patient has no active cardiac symptoms aspirin. Lipitor -Diabetic peripheral neuropathy -Diabetes mellitus type 2, chronically on insulin-uncontrolled with hyperglycemia Uncontrolled with diabetic nonketotic hyperosmolar hyperglycemia IV fluids. Follow Accu-Cheks -GERD Pepcid -Lactic acidosis possibly combination of sepsis and type II IV fluids, antibiotics -Acute metabolic encephalopathy multifactorial-likely contribution from infection.-Slow to improve Continue with IV fluids antibiotics -Normocytic anemia of chronic disease Follow H&H Postprocedure patient is a bit tired. Was a bit delirious. Pain management in place.
[2020-08-02] MEDS: SODIUM CHLORIDE 0.9% 1,000 ML IV SCH ×4 (00:02→19:52)
[2020-08-02] MEDS: HYDROcodone/APAP 10-325MG 1 EACH TAB PO PRN ×2 (06:50→14:43)
[2020-08-02 07:09] LABS: Glucose,Whole Blood 135 mg/dL (75-99)
[2020-08-02] MEDS: INSULIN DETEMIR (LEVEMIR) 100 UNIT/ML SYR SQ SCH ×2 (07:14→20:44)
[2020-08-02] MEDS: INSULIN ASPART (NovoLOG) 100 UNIT/ML VIAL SQ SCH ×7 (07:14→20:44)
[2020-08-02] MEDS: AMPICILLIN-SULBACTAM 3 GM in SODIUM CHLORIDE 0.9% 100 ML IVPB SCH ×5 (07:53→23:19)
[2020-08-02] MEDS: ENOXAPARIN 40 MG/0.4 ML SYRINGE SQ SCH (07:53)
[2020-08-02 08:05] LABS: Basophils # (A) 0.1 k/uL (0-0.2); Basophils % (A) 0 %; Eosinophils # (A) 0.2 k/uL (0-0.7); Eosinophils % (A) 1 %; HCT 29.1 % (39.0-53.0); HGB 9.8 gm/dL (13.0-17.5); Lymphocytes # (A) 1.8 k/uL (1.0-4.8); Lymphocytes % (A) 14 %; MCH 30.5 pg (25.0-35.0); MCHC 33.8 g/dL (31.0-37.0); MCV 90.2 fL (80.0-100.0); Mean Platelet Volume 7.1; Monocytes # (A) 0.6 k/uL (0-1.0); Monocytes % (A) 5 %; Neutrophils % (A) 78 %; Platelet Count 419 k/uL (150-450); RBC 3.23 m/uL (4.30-5.90); RDW 13.5 % (11.5-15.5); WBC 12.8 k/uL (3.8-10.6)
[2020-08-02 08:19] LABS: African American GFR (CKD) >90 (>60 ml/min/1.73 sqM); Anion Gap 4 mmol/L; Blood Urea Nitrogen 5 mg/dL (9-20); Carbon Dioxide 26 mmol/L (22-30); Chloride 104 mmol/L (98-107); Glucose 118 mg/dL (74-99); Non-African American GFR(CKD) >90 (>60 ml/min/1.73 sqM); Potassium 3.3 mmol/L (3.5-5.1); Sodium 134 mmol/L (137-145)
[2020-08-02] MEDS: VANCOMYCIN 1,500 MG in SODIUM CHLORIDE 0.9% 250 ML IVPB SCH ×5 (10:03→23:19)
--- NOTE | 2020-08-02 10:49 | P.PN ---
Subjective Progress Note Date: 08/02/20 Patient seen and examined. No complaints. Still with some left-foot pain. Objective - Vital Signs Vital signs: Vital Signs Temp 97.9 F 08/02/20 08:00 Pulse 93 08/02/20 08:00 Resp 18 08/02/20 08:00 BP 96/54 08/02/20 08:00 Pulse Ox 96 08/02/20 08:00 Intake & Output 08/01/20 08/02/20 08/02/20 18:59 06:59 18:59 Intake Total 2590 0 2257 Output Total 2350 400 Balance 240 -400 2257 Weight 92.5 kg Intake: IV 2590 1040 Invasive Line 4 10 Sodium Chloride 0.9% 1, 130 1040 000 ml @ 130 mls/hr IV . Q7H42M [facility] Rx#:[id number] Intake, IV Titration 350 Amount Ampicillin-Sulbactam 3 gm 100 In Sodium Chloride 0.9% 100 ml @ 200 mls/hr IVPB Q8HR [facility] Rx#:[id number] Vancomycin 1,500 mg In 250 Sodium Chloride 0.9% 250 ml @ 125 mls/hr IVPB Q8HR [facility] Rx#:[id number] Oral 0 867 Output: Urine 2150 400 Estimated Blood Loss 200 Other: Voiding Method Indwelling Catheter Indwelling Catheter Indwelling Catheter # Bowel Movements 1 - Exam Pleasant cooperative male resting comfortably. HEENT is normocephalic. Lungs are clear. Abdomen soft. Left lower extremity with some ischemic changes, incisions clean, dry, intact. Multiphasic posterior tibial signal. Monophasic dorsalis pedis - Labs CBC & Chem 7: 08/02/20 07:10 08/02/20 07:10 Labs: Abnormal Lab Results - Last 24 Hours (Table) 08/01/20 08/01/20 08/01/20 Range/Units 11:22 14:20 15:38 WBC (3.8-10.6) k/uL RBC (4.30-5.90) m/uL Hgb (13.0-17.5) gm/dL Hct (39.0-53.0) % Plt Count (150-450) k/uL Neutrophils # (1.3-7.7) k/uL Sodium (137-145) mmol/L Potassium (3.5-5.1) mmol/L BUN (9-20) mg/dL Creatinine (0.66-1.25) mg/dL Glucose (74-99) mg/dL POC Glucose (mg/dL) 221 H 241 H 219 H (75-99) mg/dL Calcium (8.4-10.2) mg/dL 08/01/20 08/01/20 08/01/20 Range/Units 17:18 19:42 20:30 WBC 18.1 H (3.8-10.6) k/uL RBC 3.64 L (4.30-5.90) m/uL Hgb 10.5 L (13.0-17.5) gm/dL Hct 33.2 L (39.0-53.0) % Plt Count 483 H (150-450) k/uL Neutrophils # (1.3-7.7) k/uL Sodium (137-145) mmol/L Potassium (3.5-5.1) mmol/L BUN (9-20) mg/dL Creatinine (0.66-1.25) mg/dL Glucose (74-99) mg/dL POC Glucose (mg/dL) 249 H 199 H (75-99) mg/dL Calcium (8.4-10.2) mg/dL 08/02/20 08/02/20 08/02/20 Range/Units 07:07 07:10 07:10 WBC 12.8 H (3.8-10.6) k/uL RBC 3.23 L (4.30-5.90) m/uL Hgb 9.8 L (13.0-17.5) gm/dL Hct 29.1 L (39.0-53.0) % Plt Count (150-450) k/uL Neutrophils # 10.0 H (1.3-7.7) k/uL Sodium 134 L (137-145) mmol/L Potassium 3.3 L (3.5-5.1) mmol/L BUN 5 L (9-20) mg/dL Creatinine 0.54 L (0.66-1.25) mg/dL Glucose 118 H (74-99) mg/dL POC Glucose (mg/dL) 135 H (75-99) mg/dL Calcium 8.0 L (8.4-10.2) mg/dL Microbiology - Last 24 Hours (Table) 06/03/21 15:00 Gram Stain - Preliminary Foot - Left Wound Culture - Preliminary 08/01/20 15:00 Anaerobic Culture - Preliminary Foot - Left Assessment and Plan Assessment: Postoperative day #1 left femoral to tibial bypass with vein Superficial femoral artery occlusive disease bilaterally Ischemic rest pain left lower extremity, nonhealing wounds Leukocytosis Metabolic encephalopathy Diabetes Tobacco abuse Plan: At this time continue supportive care. IV antibiotics. Increase activity, PT and OT to evaluate and treat, likely will need subacute rehab versus inpatient rehab upon discharge. Continue local wound care
[2020-08-02] MEDS ORDERED: POTASSIUM CHLORIDE ER 20 MEQ TAB.ER PO STA (11:15)
[2020-08-02 12:00] LABS: Glucose,Whole Blood 123 mg/dL (75-99)
[2020-08-02] MEDS: LACTATED RINGERS 1,000 ML IV SCH (13:28)
[2020-08-02] MEDS ORDERED: VANCOMYCIN TROUGH DUE 1 EACH MISC MISCELLANE ONE (15:00)
--- NOTE | 2020-08-02 16:28 | P.PN ---
Progress Note - Text Progress Note Date: 08/02/20 Chief Complaint: Left foot pain History of presenting complaint: This is a 70-year-old patient who follows with Dr. Fox. Patient lives by himself. Patient is of the left foot and is due for a bypass by Dr. Aponte of the vascular surgeon. He was admitted for cardiology clearance. Patient's left heel wound and told wounds have been progressively getting worse in terms of increasing pain and difficulty to walk. Patient's appetite is okay. Denies any fever and chills. Chronic stable medical conditions include diabetes mellitus requiring insulin, coronary artery disease, peripheral neuropathy osteoarthritis. Patient has known peripheral arterial disease. Admitted with acute and chronic left foot wounds, started on IV vancomycin and Unasyn. Acute nonketotic hyperosmolar hyperglycemia-put on IV fluids. Lactic acidosis. Acute metabolic encephalopathy multifactorial including infection. Being followed by vascular surgery and infectious disease. August 01: #1: Left femoral to peroneal in situ vein bypass graft. #2: Debridement of left heel, first metatarsal head area as well as the second and third toes of left foot . Postprocedure patient was a bit delirious. He did require some Haldol. Better now. Tired. Today: Laying in bed. Tired. Blood pressure running low. Ordered fluid bolus. Pain control. Eating about 50% Review of systems: Attempted for constitutional, cardiovascular, GI, pulmonary. relevant finding as above Active Medications Hydrocodone Bitart/Acetaminophen (Hydrocodone/Apap 10-325mg 1 Each Tab) 1 each PO Q6H PRN PRN Reason: Pain Last Admin: 08/02/20 14:43 Dose: 1 each Documented by: Enoxaparin Sodium (Enoxaparin 40 Mg/0.4 Ml Syringe) 40 mg SQ DAILY [facility] Last Admin: 08/02/20 07:53 Dose: 40 mg Documented by: Famotidine (Famotidine 20 Mg Tab) 20 mg PO BID PRN PRN Reason: Heartburn Hydromorphone HCl (Hydromorphone 1 Mg/Ml 1 Ml Syringe) 1 mg IVP Q3HR PRN PRN Reason: Severe Pain Last Admin: 07/31/20 20:40 Dose: 1 mg Documented by: Sodium Chloride (Saline 0.9%) 1,000 mls @ 130 mls/hr IV .Q7H42M [facility] Last Admin: 08/02/20 14:44 Dose: 130 mls/hr Documented by: Ampicillin Sodium/Sulbactam (Sodium 3 gm/ Sodium Chloride) 100 mls @ 200 mls/hr IVPB Q8HR [facility] Last Admin: 08/02/20 15:56 Dose: 200 mls/hr Documented by: Vancomycin HCl 1,500 mg/ (Sodium Chloride) 250 mls @ 125 mls/hr IVPB Q8HR [facility] Last Admin: 08/02/20 15:52 Dose: 125 mls/hr Documented by: Insulin Aspart (Insulin Aspart (Novolog) 100 Unit/Ml Vial) 0 unit SQ ACHS [facility]; Protocol Last Admin: 08/02/20 13:29 Dose: Not Given Documented by: Insulin Aspart (Insulin Aspart (Novolog) 100 Unit/Ml Vial) 8 unit SQ AC-TID [facility] Last Admin: 08/02/20 13:29 Dose: Not Given Documented by: Insulin Detemir (Insulin Detemir (Levemir) 100 Unit/Ml Syr) 40 unit SQ BID@0700,2100 [facility] Last Admin: 08/02/20 07:14 Dose: 40 unit Documented by: Lorazepam (Lorazepam 2 Mg/Ml Inj) 1 mg IV Q8HR PRN PRN Reason: Agitation Last Admin: 08/01/20 17:54 Dose: 1 mg Documented by: Miscellaneous Information (Vancomycin Trough Due 1 Each Misc) 0 each MISCELLANE DIRECTED ONE Stop: 08/03/20 07:01 Naloxone HCl (Naloxone 0.4 Mg/Ml 1 Ml Vial) 0.2 mg IV Q2M PRN PRN Reason: Opioid Reversal Quetiapine Fumarate (Quetiapine 25 Mg Tab) 25 mg PO BID PRN PRN Reason: Agitation or Acute Psychosis Last Admin: 08/01/20 17:19 Dose: 25 mg Documented by: Past medical history to include: Coronary artery disease with stent, diabetes, GERD, hypertension, prostatitis, peripheral neuropathy, anxiety depression Social history: Denies alcohol. Lives alone. Former smoker. Family history: Reviewed, noncontributory to presentation Physical examination: VITAL SIGNS: 97.3, 88, 14, 97 x 63, 97% room air GENERAL:, laying in bed, , tired EYES: Pupils equal. Conjunctiva normal. NECK: JVD not raised; masses not palpable. HEART: First and second heart sounds are normal; no edema. LUNGS:[ Respiratory rate normal; decreased breath sounds. ABDOMEN: Soft, nontender, liver spleen not palpable, no masses palpable. PSYCH: Answering simple questions MUSCULOSKELETAL: Dressing over the thigh and the left foot INVESTIGATIONS, reviewed in the clinical context: August 02: WBC 12.8 hemoglobin 9.8 potassium 3.3 creatinine 0.54 August 01: WBC 18.1 hemoglobin 10.5 platelets 483 July 31: WBC 13.8 hemoglobin 11 platelets 437 potassium 3.7 creatinine 0.55 2-D echo: EF 55% no wall motion abnormality. WBC 17.7 hemoglobin 11.5 potassium 3.3 creatinine 0.64 WBC 16.8 hemoglobin 12.2 platelets 453 sodium 1:30 potassium 5.1 creatinine 0.67 Glucose 614 lactic acid 3.4 Serum acetone negative Coronavirus [PCR: Not detected Doppler ultrasound of left lower extremity: Negative for DVT Assessment and plan: -Acute on chronic left foot wounds present on the toes and left heel secondary to poor circulation/peripheral arterial disease. Possible secondary infection with possible sepsis. -Superficial femoral artery bilateral occlusive disease IV fluids. Vancomycin. IV Unasyn August 01: Left femoral to peroneal in situ vein bypass graft. #2: Debridement of left heel, first metatarsal head area as well as the second and third toes of left foot -Significant peripheral arterial disease aspirin, Lipitor. Status post surgery -Coronary artery disease with stent. Patient has no active cardiac symptoms aspirin. Lipitor -Diabetic peripheral neuropathy -Diabetes mellitus type 2, chronically on insulin-uncontrolled with hyperglycemia Uncontrolled with diabetic nonketotic hyperosmolar hyperglycemia-corrected IV fluids. Follow Accu-Cheks -GERD Pepcid -Lactic acidosis possibly combination of sepsis and type II-improved IV fluids, antibiotics -Acute metabolic encephalopathy multifactorial-likely contribution from infection.- Continue with IV fluids antibiotics -Normocytic anemia of chronic disease Follow H&H -Post procedure delirium-improved Multifactorial -Hypotension IV fluid bolus. 500 mL. Then IV fluids at 1 25 mL an hour. IV fluid bolus. Continue IV vancomycin and IV Unasyn. Replace potassium. Repeat CBC pending.
[2020-08-02 16:32] LABS: HGB 9.5 gm/dL (13.0-17.5); MCH 29.5 pg (25.0-35.0); MCHC 32.7 g/dL (31.0-37.0); MCV 90.2 fL (80.0-100.0); Platelet Count 438 k/uL (150-450); RBC 3.21 m/uL (4.30-5.90); RDW 13.9 % (11.5-15.5); WBC 12.9 k/uL (3.8-10.6)
[2020-08-02 17:03] LABS: Glucose,Whole Blood 157 mg/dL (75-99)
[2020-08-02] MEDS: QUEtiapine 25 MG TAB PO PRN (18:27)
[2020-08-02] MEDS ORDERED: SODIUM CHLORIDE 0.9% 500 ML 500 ML IV ONE (18:36)
--- NOTE | 2020-08-02 18:47 | PN ---
PROGRESS NOTE DATE OF SERVICE: 08/02/2020 REASON FOR FOLLOWUP: Left lower extremity with ischemic and wound with secondary cellulitis. INTERVAL HISTORY: Patient is currently afebrile. The patient is status post left femoral to peroneal in situ vein bypass graft and debridement of the left heel, worse but also had as well as toe wounds. Culture has been arranged. Patient tolerated the procedure. The patient currently denies having any chest pain. No shortness of breath. No cough. No abdominal pain or any worsening pain to the foot wound area. PHYSICAL EXAMINATION: Blood pressure is 93/56, pulse of 101, temperature is 97.4. He is 97% on room air. General description: The patient is an elderly male lying in in no distress. Respiratory system: Unlabored breathing. Clear to auscultation anteriorly. Heart S1, S2. Regular rate and rhythm. Abdomen soft, no tenderness. The left foot is currently dressed up. No obvious drainage on the dressing. LABS: Hemoglobin 9.1, white count 12.8. BUN of 5, creatinine 0.54. Blood culture negative. Local cultures currently pending. DIAGNOSTIC IMPRESSION AND PLAN: Patient with left foot 2nd and 3rd toe ischemia with left heel wound with underlying peripheral arterial disease status post bypass grafting and debridement of the wound. Culture has been obtained which will be followed. Antibiotic to continue adjusting it further based on culture report. Continue supportive care. MMODL / IJN: [id number] /
[2020-08-02] MEDS ORDERED: SODIUM CHLORIDE 0.9% 500 ML 250 ML IV ONE (18:53)
[2020-08-02 20:27] LABS: Glucose,Whole Blood 157 mg/dL (75-99)
[2020-08-02] MEDS: LORazepam 2 MG/ML INJ IV PRN (23:44)
[2020-08-03] MEDS ORDERED: VANCOMYCIN TROUGH DUE 1 EACH MISC MISCELLANE ONE (07:00)
[2020-08-03 07:37] LABS: Glucose,Whole Blood 60 mg/dL (75-99)
[2020-08-03 08:04] LABS: Glucose,Whole Blood 73 mg/dL (75-99)
[2020-08-03 08:04] LABS: Glucose,Whole Blood 109 mg/dL (75-99)
[2020-08-03] MEDS: SODIUM CHLORIDE 0.9% 1,000 ML IV SCH ×2 (09:10→17:41)
[2020-08-03] MEDS: INSULIN DETEMIR (LEVEMIR) 100 UNIT/ML SYR SQ SCH (09:22)
[2020-08-03] MEDS: INSULIN ASPART (NovoLOG) 100 UNIT/ML VIAL SQ SCH ×7 (09:22→21:00)
[2020-08-03] MEDS: AMPICILLIN-SULBACTAM 3 GM in SODIUM CHLORIDE 0.9% 100 ML IVPB SCH ×2 (09:32→17:31)
[2020-08-03] MEDS: ENOXAPARIN 40 MG/0.4 ML SYRINGE SQ SCH (09:33)
[2020-08-03 10:11] LABS: African American GFR (CKD) >90 (>60 ml/min/1.73 sqM); Anion Gap 8 mmol/L; Blood Urea Nitrogen 4 mg/dL (9-20); Calcium 8.1 mg/dL (8.4-10.2); Carbon Dioxide 22 mmol/L (22-30); Chloride 103 mmol/L (98-107); Glucose 185 mg/dL (74-99); Non-African American GFR(CKD) >90 (>60 ml/min/1.73 sqM); Potassium 3.2 mmol/L (3.5-5.1); Sodium 133 mmol/L (137-145)
[2020-08-03] MEDS: VANCOMYCIN 1,500 MG in SODIUM CHLORIDE 0.9% 250 ML IVPB SCH ×2 (10:45→17:32)
[2020-08-03 12:25] LABS: Glucose,Whole Blood 229 mg/dL (75-99)
[2020-08-03] MEDS ORDERED: POTASSIUM CHLORIDE ER 20 MEQ TAB.ER PO STA ×2 (12:38→13:04)
--- NOTE | 2020-08-03 12:38 | P.PN ---
Subjective Progress Note Date: 08/03/20 Patient is status post left femoral to peroneal in situ vein bypass graft and debridement of multiple wounds of the left foot. The patient is laying in bed on closed and the nursing staff reports she is unwilling to wear clothing. He is pulling at his urinary catheter. He is appropriate although appears confused intermittently. My evaluation revealed his surgical wounds be clean, dry and otherwise u nremarkable. He is able to wiggle his toes. The wounds of his left foot are stable. The foot is pink and warm. There is excellent pulse in the bypass graft. Plan: We will continue with local wound care and offloading of the left foot and IV antibiotics. Cultures tentatively demonstrates staph aureus and I await final sensitivities. The patient will eventually require additional debridement of the left foot wounds and removal of foreign body previously identified which appears to be a hypodermic needle from a insulin type syringe. Objective - Vital Signs Vital signs: Vital Signs Temp 99.3 F 08/03/20 08:00 Pulse 105 H 08/03/20 08:00 Resp 16 08/03/20 08:00 BP 96/55 08/03/20 09:00 Pulse Ox 97 08/03/20 08:00 Intake & Output 08/02/20 08/03/20 08/03/20 18:59 06:59 18:59 Intake Total 2737 2080 Output Total 2250 1100 Balance 487 980 Weight 91 kg Intake: IV 1040 Sodium Chloride 0.9% 1, 1040 000 ml @ 130 mls/hr IV . Q7H42M [facility] Rx#:[id number] Intake, IV Titration 350 1600 Amount Ampicillin-Sulbactam 3 gm 100 100 In Sodium Chloride 0.9% 100 ml @ 200 mls/hr IVPB Q8HR [facility] Rx#:[id number] Sodium Chloride 0.9% 1, 1000 000 ml @ 130 mls/hr IV . Q7H42M [facility] Rx#:[id number] Sodium Chloride 0.9% 500 250 ml 250 ml @ 999 mls/hr IV .Q16M [facility] Rx#:[id number] Vancomycin 1,500 mg In 250 250 Sodium Chloride 0.9% 250 ml @ 125 mls/hr IVPB Q8HR [facility] Rx#:[id number] Oral 1347 480 Output: Urine 2250 1100 Other: Voiding Method Indwelling Catheter Indwelling Catheter Indwelling Catheter - Labs CBC & Chem 7: 08/02/20 15:48 08/03/20 09:13 Labs: Abnormal Lab Results - Last 24 Hours (Table) 08/02/20 08/02/20 08/02/20 Range/Units 15:48 17:01 20:09 WBC 12.9 H (3.8-10.6) k/uL RBC 3.21 L (4.30-5.90) m/uL Hgb 9.5 L (13.0-17.5) gm/dL Hct 29.0 L (39.0-53.0) % Sodium (137-145) mmol/L Potassium (3.5-5.1) mmol/L BUN (9-20) mg/dL Creatinine (0.66-1.25) mg/dL Glucose (74-99) mg/dL POC Glucose (mg/dL) 157 H 157 H (75-99) mg/dL Calcium (8.4-10.2) mg/dL 08/03/20 08/03/20 08/03/20 Range/Units 07:32 07:48 08:01 WBC (3.8-10.6) k/uL RBC (4.30-5.90) m/uL Hgb (13.0-17.5) gm/dL Hct (39.0-53.0) % Sodium (137-145) mmol/L Potassium (3.5-5.1) mmol/L BUN (9-20) mg/dL Creatinine (0.66-1.25) mg/dL Glucose (74-99) mg/dL POC Glucose (mg/dL) 60 L 73 L 109 H (75-99) mg/dL Calcium (8.4-10.2) mg/dL 08/03/20 08/03/20 Range/Units 09:13 12:22 WBC (3.8-10.6) k/uL RBC (4.30-5.90) m/uL Hgb (13.0-17.5) gm/dL Hct (39.0-53.0) % Sodium 133 L (137-145) mmol/L Potassium 3.2 L (3.5-5.1) mmol/L BUN 4 L (9-20) mg/dL Creatinine 0.51 L (0.66-1.25) mg/dL Glucose 185 H (74-99) mg/dL POC Glucose (mg/dL) 229 H (75-99) mg/dL Calcium 8.1 L (8.4-10.2) mg/dL Microbiology - Last 24 Hours (Table) 08/01/20 15:00 Gram Stain - Preliminary Foot - Left Wound Culture - Preliminary Presumptive Staph aureus
--- NOTE | 2020-08-03 15:02 | P.PN ---
Progress Note - Text Progress Note Date: 08/03/20 Chief Complaint: Left foot pain History of presenting complaint: This is a 70-year-old patient who follows with Dr. Fox. Patient lives by himself. Patient is of the left foot and is due for a bypass by Dr. Aponte of the vascular surgeon. He was admitted for cardiology clearance. Patient's left heel wound and told wounds have been progressively getting worse in terms of increasing pain and difficulty to walk. Patient's appetite is okay. Denies any fever and chills. Chronic stable medical conditions include diabetes mellitus requiring insulin, coronary artery disease, peripheral neuropathy osteoarthritis. Patient has known peripheral arterial disease. Admitted with acute and chronic left foot wounds, started on IV vancomycin and Unasyn. Acute nonketotic hyperosmolar hyperglycemia-put on IV fluids. Lactic acidosis. Acute metabolic encephalopathy multifactorial including infection. Being followed by vascular surgery and infectious disease. August 01: #1: Left femoral to peroneal in situ vein bypass graft. #2: Debridement of left heel, first metatarsal head area as well as the second and third toes of left foot . Postprocedure patient was a bit delirious. He did require some Haldol. Better now. Tired. Today: More awake today. Has started to eat. Pain control. No nausea vomiting. Review of systems: Was done for constitutional, cardiovascular, GI, pulmonary. relevant finding as above Active Medications Hydrocodone Bitart/Acetaminophen (Hydrocodone/Apap 10-325mg 1 Each Tab) 1 each PO Q6H PRN PRN Reason: Pain Last Admin: 08/02/20 14:43 Dose: 1 each Documented by: Enoxaparin Sodium (Enoxaparin 40 Mg/0.4 Ml Syringe) 40 mg SQ DAILY [facility] Last Admin: 08/03/20 09:33 Dose: 40 mg Documented by: Famotidine (Famotidine 20 Mg Tab) 20 mg PO BID PRN PRN Reason: Heartburn Hydromorphone HCl (Hydromorphone 1 Mg/Ml 1 Ml Syringe) 1 mg IVP Q3HR PRN PRN Reason: Severe Pain Last Admin: 07/31/20 20:40 Dose: 1 mg Documented by: Sodium Chloride (Saline 0.9%) 1,000 mls @ 130 mls/hr IV .Q7H42M [facility] Last Admin: 08/03/20 09:10 Dose: Not Given Documented by: Ampicillin Sodium/Sulbactam (Sodium 3 gm/ Sodium Chloride) 100 mls @ 200 mls/hr IVPB Q8HR [facility] Last Admin: 08/03/20 09:32 Dose: 200 mls/hr Documented by: Vancomycin HCl 1,500 mg/ (Sodium Chloride) 250 mls @ 125 mls/hr IVPB Q8HR [facility] Last Admin: 08/03/20 10:45 Dose: 125 mls/hr Documented by: Insulin Aspart (Insulin Aspart (Novolog) 100 Unit/Ml Vial) 0 unit SQ ACHS [facility]; Protocol Last Admin: 08/03/20 13:28 Dose: 3 unit Documented by: Insulin Aspart (Insulin Aspart (Novolog) 100 Unit/Ml Vial) 8 unit SQ AC-TID [facility] Last Admin: 08/03/20 13:27 Dose: 8 unit Documented by: Insulin Detemir (Insulin Detemir (Levemir) 100 Unit/Ml Syr) 40 unit SQ BID@0700,2100 [facility] Last Admin: 08/03/20 09:22 Dose: Not Given Documented by: Lorazepam (Lorazepam 2 Mg/Ml Inj) 1 mg IV Q8HR PRN PRN Reason: Agitation Last Admin: 08/02/20 23:44 Dose: 1 mg Documented by: Naloxone HCl (Naloxone 0.4 Mg/Ml 1 Ml Vial) 0.2 mg IV Q2M PRN PRN Reason: Opioid Reversal Quetiapine Fumarate (Quetiapine 25 Mg Tab) 25 mg PO BID PRN PRN Reason: Agitation or Acute Psychosis Last Admin: 08/02/20 18:27 Dose: 25 mg Documented by: Past medical history to include: Coronary artery disease with stent, diabetes, GERD, hypertension, prostatitis, peripheral neuropathy, anxiety depression Social history: Denies alcohol. Lives alone. Former smoker. Family history: Reviewed, noncontributory to presentation Physical examination: VITAL SIGNS: 98.4, 88, 20, 110/67, 97% on room air GENERAL:, Reclining in bed, eating more awake EYES: Pupils equal. Conjunctiva normal. NECK: JVD not raised; masses not palpable. HEART: First and second heart sounds are normal; no edema. LUNGS:[ Respiratory rate normal; decreased breath sounds. ABDOMEN: Soft, nontender, liver spleen not palpable, no masses palpable. PSYCH: Answering questions MUSCULOSKELETAL: Dressing over the thigh and the left foot INVESTIGATIONS, reviewed in the clinical context: August 03: Potassium 3.2 creatinine 0.51 August 02: WBC 12.8 hemoglobin 9.8 potassium 3.3 creatinine 0.54 August 01: WBC 18.1 hemoglobin 10.5 platelets 483 July 31: WBC 13.8 hemoglobin 11 platelets 437 potassium 3.7 creatinine 0.55 2-D echo: EF 55% no wall motion abnormality. WBC 17.7 hemoglobin 11.5 potassium 3.3 creatinine 0.64 WBC 16.8 hemoglobin 12.2 platelets 453 sodium 1:30 potassium 5.1 creatinine 0.67 Glucose 614 lactic acid 3.4 Serum acetone negative Coronavirus [PCR: Not detected Doppler ultrasound of left lower extremity: Negative for DVT Assessment and plan: -Acute on chronic left foot wounds present on the toes and left heel secondary to poor circulation/peripheral arterial disease. Possible secondary infection with possible sepsis. -Superficial femoral artery bilateral occlusive disease IV fluids. Vancomycin. IV Unasyn August 01: Left femoral to peroneal in situ vein bypass graft. #2: Debridement of left heel, first metatarsal head area as well as the second and third toes of left foot -Significant peripheral arterial disease aspirin, Lipitor. Status post surgery . Add xarelto-small dose -Coronary artery disease with stent. Patient has no active cardiac symptoms aspirin. Lipitor -Diabetic peripheral neuropathy -Diabetes mellitus type 2, chronically on insulin-uncontrolled with hyperglycemia Uncontrolled with diabetic nonketotic hyperosmolar hyperglycemia-corrected IV fluids. Follow Accu-Cheks -GERD Pepcid -Lactic acidosis possibly combination of sepsis and type II-improved IV fluids, antibiotics -Acute metabolic encephalopathy multifactorial-likely contribution from infection.-Improving Continue with IV fluids antibiotics -Normocytic anemia of chronic disease Follow H&H -Post procedure delirium-improved Multifactorial -Hypotension-improving Status post IV fluids. Oral intake improving -Mild hyponatremia Decrease IV fluids. Increase food intake Cutback on IV fluids. Eating better. Continue IV antibiotics. Other medica tions to continue. Follow with vascular
[2020-08-03 17:00] LABS: Glucose,Whole Blood 160 mg/dL (75-99)
[2020-08-03] MEDS: ACETAMINOPHEN TAB 325 MG TAB PO PRN (17:34)
--- NOTE | 2020-08-03 18:50 | PN ---
PROGRESS NOTE DATE OF SERVICE: 08/03/2020 REASON FOR FOLLOWUP: Left foot ischemic toes and question for bacterial cellulitis. INTERVAL HISTORY: Patient is currently afebrile. Patient is breathing comfortably. Denies having any chest pain. No shortness of breath or cough. No abdominal pain. Pain to the left foot is currently controlled. PHYSICAL EXAMINATION: Blood pressure 94/52 with a pulse of 80, temperature 98.4. He is 97% on room air. General description is an elderly male lying in in no distress. Respiratory system: Unlabored breathing, clear to auscultation anteriorly. Heart S1, S2. Regular rate and rhythm. Abdomen soft, no tenderness. Left foot is currently dressed. No obvious drainage on the dressing. LABS: BUN of 4, creatinine 0.51. Local culture finalized with MSSA. DIAGNOSTIC IMPRESSION AND PLAN: Patient with left foot wound and secondary cellulitis. Culture with MSSA. Antibiotic will be switched to cefazolin 2 grams q.8 hours and will monitor clinical course closely. Continue supportive care. MMODL / IJN: [id number] /
[2020-08-03 20:54] LABS: Glucose,Whole Blood 355 mg/dL (75-99)
[2020-08-03] MEDS ORDERED: INSULIN DETEMIR (LEVEMIR) 100 UNIT/ML SYR SQ SCH (21:00)
[2020-08-03] MEDS: LORazepam 2 MG/ML INJ IV PRN (22:40)
[2020-08-04 07:35] LABS: Glucose,Whole Blood 85 mg/dL (75-99)
[2020-08-04] MEDS: INSULIN ASPART (NovoLOG) 100 UNIT/ML VIAL SQ SCH ×7 (08:43→20:56)
[2020-08-04 08:50] LABS: MCH 29.7 pg (25.0-35.0); MCHC 33.4 g/dL (31.0-37.0); MCV 89.1 fL (80.0-100.0); Mean Platelet Volume 7.3; Platelet Count 462 k/uL (150-450); RBC 3.03 m/uL (4.30-5.90); RDW 13.3 % (11.5-15.5); WBC 14.7 k/uL (3.8-10.6)
[2020-08-04] MEDS: ENOXAPARIN 40 MG/0.4 ML SYRINGE SQ SCH (08:55)
[2020-08-04 09:08] LABS: African American GFR (CKD) >90 (>60 ml/min/1.73 sqM); Anion Gap 8 mmol/L; Blood Urea Nitrogen 5 mg/dL (9-20); Calcium 8.4 mg/dL (8.4-10.2); Carbon Dioxide 24 mmol/L (22-30); Chloride 104 mmol/L (98-107); Glucose 62 mg/dL (74-99); Non-African American GFR(CKD) >90 (>60 ml/min/1.73 sqM); Potassium 3.7 mmol/L (3.5-5.1); Sodium 136 mmol/L (137-145)
[2020-08-04] MEDS: ACETAMINOPHEN TAB 325 MG TAB PO PRN (09:32)
[2020-08-04 12:12] LABS: Glucose,Whole Blood 240 mg/dL (75-99)
[2020-08-04] MEDS: MIDODRINE 5 MG TAB PO SCH ×2 (13:53→18:05)
[2020-08-04] MEDS: FAMOTIDINE 20 MG TAB PO SCH ×2 (13:54→20:55)
[2020-08-04] MEDS: ASPIRIN 81 MG PO SCH (13:54)
--- NOTE | 2020-08-04 16:24 | P.PN ---
Subjective Progress Note Date: 08/04/20 Patient is evaluated today postop day #3 status post left femoral to peroneal in situ vein bypass graft. The patient appears more lucid today. Unfortunately the [place] catheter had to be reinserted due to urinary retention issues. Evaluation today revealed his incisions were clean, dry and healing normally. Excellent pulse in the graft is identified. The foot appears well perfused. Wounds of the foot are stable/unchanged. Impression: #1: Status post femoral to peroneal in situ vein bypass graft on the left. Graft is patent and arterial perfusion of the left lower extremities markedly improved. #2: Stable ischemic wounds of the foot on the left. Patient will benefit from additional debridement in the future. #3: Urinary retention. Will start Flomax and consult urology. #4: Placement issues. We'll consult case management. Objective - Vital Signs Vital signs: Vital Signs Temp 98.2 F 08/04/20 12:00 Pulse 65 08/04/20 12:00 Resp 16 08/04/20 12:00 BP 93/63 08/04/20 12:00 Pulse Ox 95 08/04/20 12:00 Intake & Output 08/03/20 08/04/20 08/04/20 18:59 06:59 18:59 Intake Total 780 250 480 Output Total 350 1950 Balance 430 -1700 480 Weight 88.5 kg Intake: Oral 780 250 480 Output: Urine 350 1950 Other: Voiding Method Indwelling Catheter Indwelling Catheter Indwelling Catheter - Labs CBC & Chem 7: 08/04/20 07:46 08/04/20 07:46 Labs: Abnormal Lab Results - Last 24 Hours (Table) 08/03/20 08/03/20 08/04/20 Range/Units 16:57 20:52 07:46 WBC (3.8-10.6) k/uL RBC (4.30-5.90) m/uL Hgb (13.0-17.5) gm/dL Hct (39.0-53.0) % Plt Count (150-450) k/uL Sodium 136 L (137-145) mmol/L BUN 5 L (9-20) mg/dL Creatinine 0.54 L (0.66-1.25) mg/dL Glucose 62 L (74-99) mg/dL POC Glucose (mg/dL) 160 H 355 H (75-99) mg/dL 08/04/20 08/04/20 Range/Units 07:46 12:10 WBC 14.7 H (3.8-10.6) k/uL RBC 3.03 L (4.30-5.90) m/uL Hgb 9.0 L (13.0-17.5) gm/dL Hct 27.0 L (39.0-53.0) % Plt Count 462 H (150-450) k/uL Sodium (137-145) mmol/L BUN (9-20) mg/dL Creatinine (0.66-1.25) mg/dL Glucose (74-99) mg/dL POC Glucose (mg/dL) 240 H (75-99) mg/dL Microbiology - Last 24 Hours (Table) 08/01/20 15:00 Anaerobic Culture - Preliminary Foot - Left 08/01/20 15:00 Gram Stain - Final Foot - Left Wound Culture - Final Staphylococcus aureus
[2020-08-04] MEDS: RIVAROXABAN 2.5 MG TABLET PO SCH ×2 (16:25→20:55)
--- NOTE | 2020-08-04 16:50 | P.PN ---
Progress Note - Text Progress Note Date: 08/04/20 Chief Complaint: Left foot pain History of presenting complaint: This is a 70-year-old patient who follows with Dr. Fox. Patient lives by himself. Patient is of the left foot and is due for a bypass by Dr. Aponte of the vascular surgeon. He was admitted for cardiology clearance. Patient's left heel wound and told wounds have been progressively getting worse in terms of increasing pain and difficulty to walk. Patient's appetite is okay. Denies any fever and chills. Chronic stable medical conditions include diabetes mellitus requiring insulin, coronary artery disease, peripheral neuropathy osteoarthritis. Patient has known peripheral arterial disease. Admitted with acute and chronic left foot wounds, started on IV vancomycin and Unasyn. Acute nonketotic hyperosmolar hyperglycemia-put on IV fluids. Lactic acidosis. Acute metabolic encephalopathy multifactorial including infection. Being followed by vascular surgery and infectious disease. August 01: #1: Left femoral to peroneal in situ vein bypass graft. #2: Debridement of left heel, first metatarsal head area as well as the second and third toes of left foot . Postprocedure patient was a bit delirious. He did require some Haldol. Better now. Tired. Today: Awake sitting up in bed. Tired. Pain in the surgical site. Eating more greatly. Had urinary retention. Review of systems: Was done for constitutional, cardiovascular, GI, pulmonary. relevant finding as above Active Medications Acetaminophen (Acetaminophen Tab 325 Mg Tab) 650 mg PO Q4HR PRN PRN Reason: Fever and/ or Pain Last Admin: 08/04/20 09:32 Dose: 650 mg Documented by: Hydrocodone Bitart/Acetaminophen (Hydrocodone/Apap 10-325mg 1 Each Tab) 1 each PO Q6H PRN PRN Reason: Pain Last Admin: 08/02/20 14:43 Dose: 1 each Documented by: Aspirin (Aspirin 81 Mg) 81 mg PO DAILY [facility] Last Admin: 08/04/20 13:54 Dose: 81 mg Documented by: Atorvastatin Calcium (Atorvastatin 40 Mg Tab) 40 mg PO HS [facility] Famotidine (Famotidine 20 Mg Tab) 20 mg PO BID [facility] Last Admin: 08/04/20 13:54 Dose: 20 mg Documented by: Hydromorphone HCl (Hydromorphone 1 Mg/Ml 1 Ml Syringe) 1 mg IVP Q3HR PRN PRN Reason: Severe Pain Last Admin: 07/31/20 20:40 Dose: 1 mg Documented by: Cefazolin Sodium 2 gm/ Sodium (Chloride) 50 mls @ 100 mls/hr IVPB Q8HR [facility] Last Admin: 08/04/20 16:25 Dose: 100 mls/hr Documented by: Insulin Aspart (Insulin Aspart (Novolog) 100 Unit/Ml Vial) 0 unit SQ ACHS [facility]; Protocol Last Admin: 08/04/20 12:20 Dose: 3 unit Documented by: Insulin Aspart (Insulin Aspart (Novolog) 100 Unit/Ml Vial) 4 unit SQ AC-TID [facility] Last Admin: 08/04/20 12:20 Dose: 4 unit Documented by: Insulin Detemir (Insulin Detemir (Levemir) 100 Unit/Ml Syr) 30 unit SQ HS [facility] Last Admin: 08/03/20 21:00 Dose: 30 unit Documented by: Lorazepam (Lorazepam 2 Mg/Ml Inj) 1 mg IV Q8HR PRN PRN Reason: Agitation Last Admin: 08/03/20 22:40 Dose: 1 mg Documented by: Midodrine (Midodrine 5 Mg Tab) 2.5 mg PO AC-TID [facility] Last Admin: 08/04/20 13:53 Dose: 2.5 mg Documented by: Naloxone HCl (Naloxone 0.4 Mg/Ml 1 Ml Vial) 0.2 mg IV Q2M PRN PRN Reason: Opioid Reversal Quetiapine Fumarate (Quetiapine 25 Mg Tab) 25 mg PO BID PRN PRN Reason: Agitation or Acute Psychosis Last Admin: 08/02/20 18:27 Dose: 25 mg Documented by: Rivaroxaban (Rivaroxaban 2.5 Mg Tablet) 2.5 mg PO BID [facility] Last Admin: 08/04/20 16:25 Dose: 2.5 mg Documented by: Tamsulosin HCl (Tamsulosin 0.4 Mg Cap.Er.24h) 0.4 mg PO PC-SUPPER [facility] Past medical history to include: Coronary artery disease with stent, diabetes, GERD, hypertension, prostatitis, peripheral neuropathy, anxiety depression Social history: Denies alcohol. Lives alone. Former smoker. Family history: Reviewed, noncontributory to presentation Physical examination: VITAL SIGNS: 98.2, 65, 16, 93 x 63, 95% room air GENERAL:, Sitting up in bed, eating, EYES: Pupils equal. Conjunctiva normal. NECK: JVD not raised; masses not palpable. HEART: First and second heart sounds are normal; no edema. LUNGS:[ Respiratory rate normal; decreased breath sounds. ABDOMEN: Soft, nontender, liver spleen not palpable, no masses palpable. PSYCH: Answering questions MUSCULOSKELETAL: Dressing over the thigh and the left foot INVESTIGATIONS, reviewed in the clinical context: August 04: WBC 14.7 hemoglobin 9 potassium 3.7 creatinine 0.5 for blood glucose 62 August 03: Potassium 3.2 creatinine 0.51 August 02: WBC 12.8 hemoglobin 9.8 potassium 3.3 creatinine 0.54 August 01: WBC 18.1 hemoglobin 10.5 platelets 483 July 31: WBC 13.8 hemoglobin 11 platelets 437 potassium 3.7 creatinine 0.55 2-D echo: EF 55% no wall motion abnormality. WBC 17.7 hemoglobin 11.5 potassium 3.3 creatinine 0.64 WBC 16.8 hemoglobin 12.2 platelets 453 sodium 1:30 potassium 5.1 creatinine 0.67 Glucose 614 lactic acid 3.4 Serum acetone negative Coronavirus [PCR: Not detected Doppler ultrasound of left lower extremity: Negative for DVT Assessment and plan: -Acute on chronic left foot wounds present on the toes and left heel secondary to poor circulation/peripheral arterial disease. Possible secondary infection with possible sepsis. -Superficial femoral artery bilateral occlusive disease IV fluids. Vancomycin. IV Unasyn August 01: Left femoral to peroneal in situ vein bypass graft. #2: Debridement of left heel, first metatarsal head area as well as the second and third toes of left foot -Significant peripheral arterial disease aspirin, Lipitor. Status post surgery . Add xarelto 2.5 mg twice daily with aspirin as better outcomes as per literature -Coronary artery disease with stent. Patient has no active cardiac symptoms aspirin. Lipitor -Diabetic peripheral neuropathy -Diabetes mellitus type 2, chronically on insulin-uncontrolled with hyperglycemia and hypoglycemia Uncontrolled with diabetic nonketotic hyperosmolar hyperglycemia-corrected IV fluids. Follow Accu-Cheks -GERD Pepcid -Lactic acidosis possibly combination of sepsis and type II-improved IV fluids, antibiotics -Acute metabolic encephalopathy multifactorial-likely contribution from infection.-Improving Continue with IV fluids antibiotics -Normocytic anemia of chronic disease Follow H&H -Post procedure delirium-improved Multifactorial -Hypotension-improving Status post IV fluids. Oral intake improving. Add midodrine 2.5 mg 3 times a day -Mild hyponatremia Decrease IV fluids. Increase food intake Continue with IV antibiotics. Add midodrine 2.5 mg 3 times a day. Also start 022.5 milligrams 3 times a day for PAD. IV Ancef. Cutback Levemir to 22 units. Also increase scheduled NovoLog to 6 units before meals 3 times a day
[2020-08-04 17:10] LABS: Glucose,Whole Blood 167 mg/dL (75-99)
[2020-08-04] MEDS: TAMSULOSIN 0.4 MG CAP.ER.24H PO SCH (18:05)
--- NOTE | 2020-08-04 18:18 | PN ---
PROGRESS NOTE DATE OF SERVICE: 08/04/2020 REASON FOR FOLLOWUP: Left heel and toes wound with secondary infection MSSA. INTERVAL HISTORY: Patient is afebrile. Patient is breathing comfortably. Pain to the left foot is currently controlled. Denies having any chest pain. No shortness or breath or cough. No abdominal pain or diarrhea. PHYSICAL EXAMINATION: Blood pressure is 93/63, pulse of 55, temperature 98.2. He is 95% on room air. General description: The patient is an elderly male lying in in no distress. Respiratory system: Unlabored breathing, clear to auscultation anteriorly. Heart S1, S2. Regular rate and rhythm. Abdomen soft, no tenderness. Left foot is currently dressed up. No obvious drainage on the dressing. LABS: BUN of 5, creatinine 0.54, white count 14.7. DIAGNOSTIC IMPRESSION AND PLAN: Patient with left foot ischemic wound with secondary cellulitis, status post bypass surgery and debridement of the wound culture with MSSA. Patient is covered with Cefazolin. White count has gone slightly higher that will be monitored closely and continue supportive care. MMODL / IJN: [id number] /
[2020-08-04 19:57] LABS: Glucose,Whole Blood 376 mg/dL (75-99)
[2020-08-04] MEDS: ATORVASTATIN 40 MG TAB PO SCH (20:55)
[2020-08-04] MEDS: QUEtiapine 25 MG TAB PO PRN (20:55)
[2020-08-04] MEDS ORDERED: INSULIN DETEMIR (LEVEMIR) 100 UNIT/ML SYR SQ SCH (21:00)
[2020-08-05 06:10] LABS: Glucose,Whole Blood 251 mg/dL (75-99)
[2020-08-05] MEDS: INSULIN ASPART (NovoLOG) 100 UNIT/ML VIAL SQ SCH ×7 (06:49→21:07)
[2020-08-05] MEDS: MIDODRINE 5 MG TAB PO SCH ×3 (06:49→18:24)
[2020-08-05] MEDS: ASPIRIN 81 MG PO SCH (09:12)
[2020-08-05] MEDS: RIVAROXABAN 2.5 MG TABLET PO SCH ×2 (09:13→21:06)
[2020-08-05] MEDS: FAMOTIDINE 20 MG TAB PO SCH ×2 (09:13→21:06)
[2020-08-05 11:58] LABS: Glucose,Whole Blood 192 mg/dL (75-99)
--- NOTE | 2020-08-05 14:12 | PN ---
PROGRESS NOTE DATE OF SERVICE: 08/05/2020 REASON FOR FOLLOWUP: Left foot ischemic wounds and cellulitis. INTERVAL HISTORY: Patient is afebrile. He is breathing comfortably. Denies having any chest pain or cough. No abdominal pain. Pain to the left foot is currently controlled. PHYSICAL EXAMINATION: VITAL SIGNS: Blood pressure is 82/57, pulse 96, temperature 99, he is 94% on room air. GENERAL DESCRIPTION: An elderly male lying in bed in no distress. RESPIRATORY SYSTEM: Unlabored breathing, clear to auscultation anteriorly. HEART: S1, S2. Regular rate and rhythm. ABDOMEN: Soft, no tenderness. EXTREMITIES: Right foot is currently dressed with no drainage on the dressing. LABS: No new labs have been obtained today. DIAGNOSTIC IMPRESSION AND PLAN: Patient with left foot ischemic wound, status post bypass surgery wound culture positive for MRSA. The patient is covered with cefazolin to continue. Local wound care per Surgery and monitor clinical course closely. MMODL / IJN: [id number] /
[2020-08-05 17:02] LABS: Glucose,Whole Blood 229 mg/dL (75-99)
--- NOTE | 2020-08-05 18:18 | P.PN ---
Progress Note - Text Progress Note Date: 08/05/20 Chief Complaint: Left foot pain History of presenting complaint: This is a 70-year-old patient who follows with Dr. Fox. Patient lives by himself. Patient is of the left foot and is due for a bypass by Dr. Aponte of the vascular surgeon. He was admitted for cardiology clearance. Patient's left heel wound and told wounds have been progressively getting worse in terms of increasing pain and difficulty to walk. Patient's appetite is okay. Denies any fever and chills. Chronic stable medical conditions include diabetes mellitus requiring insulin, coronary artery disease, peripheral neuropathy osteoarthritis. Patient has known peripheral arterial disease. Admitted with acute and chronic left foot wounds, started on IV vancomycin and Unasyn. Acute nonketotic hyperosmolar hyperglycemia-put on IV fluids. Lactic acidosis. Acute metabolic encephalopathy multifactorial including infection. Being followed by vascular surgery and infectious disease. August 01: #1: Left femoral to peroneal in situ vein bypass graft. #2: Debridement of left heel, first metatarsal head area as well as the second and third toes of left foot . Postprocedure patient was a bit delirious. He did require some Haldol. Better now. Tired. Today: Sitting up in bed. Oral intake fair. Pain in the left foot. Review of systems: Was done for constitutional, cardiovascular, GI, pulmonary. relevant finding as above Active Medications Acetaminophen (Acetaminophen Tab 325 Mg Tab) 650 mg PO Q4HR PRN PRN Reason: Fever and/ or Pain Last Admin: 08/04/20 09:32 Dose: 650 mg Documented by: Hydrocodone Bitart/Acetaminophen (Hydrocodone/Apap 10-325mg 1 Each Tab) 1 each PO Q6H PRN PRN Reason: Pain Last Admin: 08/02/20 14:43 Dose: 1 each Documented by: Aspirin (Aspirin 81 Mg) 81 mg PO DAILY [facility] Last Admin: 08/05/20 09:12 Dose: 81 mg Documented by: Atorvastatin Calcium (Atorvastatin 40 Mg Tab) 40 mg PO HS [facility] Last Admin: 08/04/20 20:55 Dose: 40 mg Documented by: Famotidine (Famotidine 20 Mg Tab) 20 mg PO BID [facility] Last Admin: 08/05/20 09:13 Dose: 20 mg Documented by: Hydromorphone HCl (Hydromorphone 1 Mg/Ml 1 Ml Syringe) 1 mg IVP Q3HR PRN PRN Reason: Severe Pain Last Admin: 07/31/20 20:40 Dose: 1 mg Documented by: Cefazolin Sodium 2 gm/ Sodium (Chloride) 50 mls @ 100 mls/hr IVPB Q8HR [facility] Last Admin: 08/05/20 09:12 Dose: 100 mls/hr Documented by: Insulin Aspart (Insulin Aspart (Novolog) 100 Unit/Ml Vial) 0 unit SQ ACHS [facility]; Protocol Last Admin: 08/05/20 12:42 Dose: 2 unit Documented by: Insulin Aspart (Insulin Aspart (Novolog) 100 Unit/Ml Vial) 7 unit SQ AC-TID [facility] Last Admin: 08/05/20 12:42 Dose: 7 unit Documented by: Insulin Detemir (Insulin Detemir (Levemir) 100 Unit/Ml Syr) 28 unit SQ [facility] Lorazepam (Lorazepam 2 Mg/Ml Inj) 1 mg IV Q8HR PRN PRN Reason: Agitation Last Admin: 08/03/20 22:40 Dose: 1 mg Documented by: Midodrine (Midodrine 5 Mg Tab) 5 mg PO AC-TID [facility] Last Admin: 08/05/20 12:42 Dose: 5 mg Documented by: Naloxone HCl (Naloxone 0.4 Mg/Ml 1 Ml Vial) 0.2 mg IV Q2M PRN PRN Reason: Opioid Reversal Quetiapine Fumarate (Quetiapine 25 Mg Tab) 25 mg PO BID PRN PRN Reason: Agitation or Acute Psychosis Last Admin: 08/04/20 20:55 Dose: 25 mg Documented by: Rivaroxaban (Rivaroxaban 2.5 Mg Tablet) 2.5 mg PO BID [facility] Last Admin: 08/05/20 09:13 Dose: 2.5 mg Documented by: Tamsulosin HCl (Tamsulosin 0.4 Mg Cap.Er.24h) 0.4 mg PO PC-SUPPER [facility] Last Admin: 08/04/20 18:05 Dose: 0.4 mg Documented by: Past medical history to include: Coronary artery disease with stent, diabetes, GERD, hypertension, prostatitis, peripheral neuropathy, anxiety depression Social history: Denies alcohol. Lives alone. Former smoker. Family history: Reviewed, noncontributory to presentation Physical examination: VITAL SIGNS: 98.2, 90, 16, 90/86, 90% on room air GENERAL:, Sitting up in bed, awake EYES: Pupils equal. Conjunctiva normal. NECK: JVD not raised; masses not palpable. HEART: First and second heart sounds are normal; no edema. LUNGS:[ Respiratory rate normal; decreased breath sounds. ABDOMEN: Soft, nontender, liver spleen not palpable, no masses palpable. PSYCH: Answering questions MUSCULOSKELETAL: Dressing over the thigh and the left foot INVESTIGATIONS, reviewed in the clinical context: August 04: WBC 14.7 hemoglobin 9 potassium 3.7 creatinine 0.5 for blood glucose 62 August 03: Potassium 3.2 creatinine 0.51 August 02: WBC 12.8 hemoglobin 9.8 potassium 3.3 creatinine 0.54 August 01: WBC 18.1 hemoglobin 10.5 platelets 483 July 31: WBC 13.8 hemoglobin 11 platelets 437 potassium 3.7 creatinine 0.55 2-D echo: EF 55% no wall motion abnormality. WBC 17.7 hemoglobin 11.5 potassium 3.3 creatinine 0.64 WBC 16.8 hemoglobin 12.2 platelets 453 sodium 1:30 potassium 5.1 creatinine 0.67 Glucose 614 lactic acid 3.4 Serum acetone negative Coronavirus [PCR: Not detected Doppler ultrasound of left lower extremity: Negative for DVT Assessment and plan: -Acute on chronic left foot wounds present on the toes and left heel secondary to poor circulation/peripheral arterial disease. Possible secondary infection with possible sepsis. Cultures positive for MSSA. -Superficial femoral artery bilateral occlusive disease IV fluids. Vancomycin - discontinued. IV Unasyn August 01: Left femoral to peroneal in situ vein bypass graft. #2: Debridement of left heel, first metatarsal head area as well as the second and third toes of left foot -Significant peripheral arterial disease aspirin, Lipitor. Status post surgery . Add xarelto 2.5 mg twice daily with aspirin as better outcomes / literature -Coronary artery disease with stent. Patient has no active cardiac symptoms aspirin. Lipitor -Diabetic peripheral neuropathy -Diabetes mellitus type 2, chronically on insulin-uncontrolled with hyperglycemia and hypoglycemia Uncontrolled with diabetic nonketotic hyperosmolar hyperglycemia-corrected IV fluids. Follow Accu-Cheks -GERD Pepcid -Lactic acidosis possibly combination of sepsis and type II-improved IV fluids, antibiotics -Acute metabolic encephalopathy multifactorial-likely contribution from infection.-Improving Continue with IV fluids antibiotics -Normocytic anemia of chronic disease Follow H&H -Post procedure delirium-improved Multifactorial -Hypotension-improving Status post IV fluids. Increase midodrine to 5 mg 3 times a day -Mild hyponatremia Decrease IV fluids. Increase food intake Increase patient's Levemir to 28 units at night and scheduled NovoLog to 7 units with meals. Increase midodrine to 5 mg 3 times a day. IV Unasyn. Discharge planning in place.
[2020-08-05] MEDS: TAMSULOSIN 0.4 MG CAP.ER.24H PO SCH (18:24)
[2020-08-05 20:14] LABS: Glucose,Whole Blood 221 mg/dL (75-99)
[2020-08-05] MEDS: QUEtiapine 25 MG TAB PO PRN (21:06)
[2020-08-05] MEDS: ATORVASTATIN 40 MG TAB PO SCH (21:06)
[2020-08-05] MEDS: INSULIN DETEMIR (LEVEMIR) 100 UNIT/ML SYR SQ SCH (21:06)
[2020-08-06 06:10] LABS: Glucose,Whole Blood 197 mg/dL (75-99)
[2020-08-06] MEDS: MIDODRINE 5 MG TAB PO SCH ×3 (06:33→18:30)
[2020-08-06 08:28] LABS: Basophils # (A) 0.1 k/uL (0-0.2); Basophils % (A) 1 %; Eosinophils # (A) 0.5 k/uL (0-0.7); Eosinophils % (A) 4 %; HCT 27.2 % (39.0-53.0); HGB 8.9 gm/dL (13.0-17.5); Lymphocytes # (A) 1.8 k/uL (1.0-4.8); Lymphocytes % (A) 13 %; MCH 29.2 pg (25.0-35.0); MCHC 32.6 g/dL (31.0-37.0); MCV 89.7 fL (80.0-100.0); Mean Platelet Volume 7.2; Monocytes # (A) 0.5 k/uL (0-1.0); Monocytes % (A) 4 %; Neutrophils # (A) 10.6 k/uL (1.3-7.7); Neutrophils % (A) 78 %; Platelet Count 506 k/uL (150-450); RBC 3.03 m/uL (4.30-5.90); RDW 13.5 % (11.5-15.5); WBC 13.6 k/uL (3.8-10.6)
[2020-08-06] MEDS: ASPIRIN 81 MG PO SCH (08:44)
[2020-08-06] MEDS: INSULIN ASPART (NovoLOG) 100 UNIT/ML VIAL SQ SCH ×7 (08:45→21:08)
[2020-08-06] MEDS: RIVAROXABAN 2.5 MG TABLET PO SCH ×2 (08:45→19:53)
[2020-08-06] MEDS: FAMOTIDINE 20 MG TAB PO SCH ×2 (08:45→19:54)
[2020-08-06 10:39] VITALS: BMI 24.5
[2020-08-06 10:58] LABS: African American GFR (CKD) >90 (>60 ml/min/1.73 sqM); Anion Gap 9 mmol/L; Blood Urea Nitrogen 9 mg/dL (9-20); Calcium 8.5 mg/dL (8.4-10.2); Carbon Dioxide 25 mmol/L (22-30); Chloride 100 mmol/L (98-107); Glucose 160 mg/dL (74-99); Non-African American GFR(CKD) >90 (>60 ml/min/1.73 sqM); Potassium 3.9 mmol/L (3.5-5.1); Sodium 134 mmol/L (137-145)
--- NOTE | 2020-08-06 11:34 | P.PN ---
Subjective Progress Note Date: 08/06/20 Principal diagnosis: Left lower extremity critical limb ischemia She was seen and examined sitting up in bed eating his breakfast. States he's feeling better today. No acute changes through the night, denies any fevers or chills. He remains on IV antibiotics per recommendations from infectious disease. Objective - Vital Signs Vital signs: Vital Signs Temp 99 F 08/06/20 04:30 Pulse 106 H 08/06/20 04:30 Resp 18 08/06/20 04:30 BP 101/71 08/06/20 04:30 Pulse Ox 95 08/06/20 04:30 Intake & Output 08/05/20 08/06/20 08/06/20 18:59 06:59 18:59 Intake Total 480 Output Total 1900 Balance 480 -1900 Weight 82 kg Intake: Oral 480 Output: Urine 1900 Other: Voiding Method Indwelling Catheter Indwelling Catheter # Bowel Movements 2 1 - Exam General appearance: The patient is alert, confused, in no acute distress. HET: Head is normocephalic and atraumatic. Pupils are equal and reactive. Oropharynx is clear without lesions. Neck: Supple without lymphadenopathy. Trachea midline. Extremities: Left lower extremity with bruising noted in the left groin wrapping around posterior aspect of thigh. Incisions well approximated, clean dry and intact. Left foot with dressing clean dry and intact. Neurological: No focal deficits. Strength and sensation are grossly intact. - Labs CBC & Chem 7: 08/06/20 07:31 08/06/20 07:31 Labs: Abnormal Lab Results - Last 24 Hours (Table) 08/05/20 08/05/20 08/05/20 Range/Units 11:56 16:58 20:13 POC Glucose (mg/dL) 192 H 229 H 221 H (75-99) mg/dL 08/06/20 Range/Units 06:09 POC Glucose (mg/dL) 197 H (75-99) mg/dL Microbiology - Last 24 Hours (Table) 08/01/20 15:00 Anaerobic Culture - Final Foot - Left Assessment and Plan Assessment: 1. Postop day #5 femoral to perineal in situ vein bypass graft on left 2. Left lower extremity critical limb ischemia Agate classification 5 3. Stable ischemic wound on the left foot 4. Urinary retention 5. Coronary artery disease with history of stenting 6. Type 2 diabetes with diabetic neuropathy Plan: 1. Continue with medical management. 2. Consistent carbohydrate diet 3. Daily wet-to-dry dressing change to left foot wounds, Vaseline gauze between second and third toe 4. Patient will need further debridement, this is scheduled tentatively for , 08/08/[address] Webb 5. Appreciate recommendations from infectious disease 6. Physical therapy to work with patient 7. Offload pressure on left heel The impression and plan of care has been dictated as directed. Dr. Vegas I performed a history and examination of this patient, discussed the same with the dictator. I agree with the dictator's note ,documented as a scribe. Any additional findings or plans will be noted.
[2020-08-06 12:09] LABS: Glucose,Whole Blood 175 mg/dL (75-99)
[2020-08-06] MEDS: TAMSULOSIN 0.4 MG CAP.ER.24H PO SCH (13:34)
[2020-08-06 17:08] LABS: Glucose,Whole Blood 193 mg/dL (75-99)
[2020-08-06] MEDS: ACETAMINOPHEN TAB 325 MG TAB PO PRN (19:53)
[2020-08-06] MEDS: ATORVASTATIN 40 MG TAB PO SCH (19:53)
[2020-08-06] MEDS: QUEtiapine 25 MG TAB PO PRN (19:54)
--- NOTE | 2020-08-06 20:10 | P.PN ---
Progress Note - Text Progress Note Date: 08/06/20 Chief Complaint: Left foot pain History of presenting complaint: This is a 70-year-old patient who follows with Dr. Fox. Patient lives by himself. Patient is of the left foot and is due for a bypass by Dr. Aponte of the vascular surgeon. He was admitted for cardiology clearance. Patient's left heel wound and told wounds have been progressively getting worse in terms of increasing pain and difficulty to walk. Patient's appetite is okay. Denies any fever and chills. Chronic stable medical conditions include diabetes mellitus requiring insulin, coronary artery disease, peripheral neuropathy osteoarthritis. Patient has known peripheral arterial disease. Admitted with acute and chronic left foot wounds, started on IV vancomycin and Unasyn. Acute nonketotic hyperosmolar hyperglycemia-put on IV fluids. Lactic acidosis. Acute metabolic encephalopathy multifactorial including infection. Being followed by vascular surgery and infectious disease. August 01: #1: Left femoral to peroneal in situ vein bypass graft. #2: Debridement of left heel, first metatarsal head area as well as the second and third toes of left foot . Today: Sitting up in bed. Eating well. Left foot pain. Debridement being planned by its vascular surgery. Review of systems: Was done for constitutional, cardiovascular, GI, pulmonary. relevant finding as above Active Medications Acetaminophen (Acetaminophen Tab 325 Mg Tab) 650 mg PO Q4HR PRN PRN Reason: Fever and/ or Pain Last Admin: 08/06/20 19:53 Dose: 650 mg Documented by: Hydrocodone Bitart/Acetaminophen (Hydrocodone/Apap 10-325mg 1 Each Tab) 1 each PO Q6H PRN PRN Reason: Pain Last Admin: 08/02/20 14:43 Dose: 1 each Documented by: Aspirin (Aspirin 81 Mg) 81 mg PO DAILY [facility] Last Admin: 08/06/20 08:44 Dose: 81 mg Documented by: Atorvastatin Calcium (Atorvastatin 40 Mg Tab) 40 mg PO HS [facility] Last Admin: 08/06/20 19:53 Dose: 40 mg Documented by: Famotidine (Famotidine 20 Mg Tab) 20 mg PO BID [facility] Last Admin: 08/06/20 19:54 Dose: 20 mg Documented by: Hydromorphone HCl (Hydromorphone 1 Mg/Ml 1 Ml Syringe) 1 mg IVP Q3HR PRN PRN Reason: Severe Pain Last Admin: 07/31/20 20:40 Dose: 1 mg Documented by: Cefazolin Sodium 2 gm/ Sodium (Chloride) 50 mls @ 100 mls/hr IVPB Q8HR [facility] Last Admin: 08/06/20 13:34 Dose: 100 mls/hr Documented by: Insulin Aspart (Insulin Aspart (Novolog) 100 Unit/Ml Vial) 0 unit SQ ACHS [facility]; Protocol Last Admin: 08/06/20 18:30 Dose: 2 unit Documented by: Insulin Aspart (Insulin Aspart (Novolog) 100 Unit/Ml Vial) 7 unit SQ AC-TID [facility] Last Admin: 08/06/20 18:30 Dose: 7 unit Documented by: Insulin Detemir (Insulin Detemir (Levemir) 100 Unit/Ml Syr) 28 unit SQ HS [facility] Last Admin: 08/05/20 21:06 Dose: 28 unit Documented by: Lorazepam (Lorazepam 2 Mg/Ml Inj) 1 mg IV Q8HR PRN PRN Reason: Agitation Last Admin: 08/03/20 22:40 Dose: 1 mg Documented by: Midodrine (Midodrine 5 Mg Tab) 5 mg PO AC-TID [facility] Last Admin: 08/06/20 18:30 Dose: 5 mg Documented by: Naloxone HCl (Naloxone 0.4 Mg/Ml 1 Ml Vial) 0.2 mg IV Q2M PRN PRN Reason: Opioid Reversal Quetiapine Fumarate (Quetiapine 25 Mg Tab) 25 mg PO BID PRN PRN Reason: Agitation or Acute Psychosis Last Admin: 08/06/20 19:54 Dose: 25 mg Documented by: Rivaroxaban (Rivaroxaban 2.5 Mg Tablet) 2.5 mg PO BID [facility] Last Admin: 08/06/20 19:53 Dose: 2.5 mg Documented by: Tamsulosin HCl (Tamsulosin 0.4 Mg Cap.Er.24h) 0.4 mg PO PC-SUPPER [facility] Last Admin: 08/06/20 13:34 Dose: 0.4 mg Documented by: Past medical history to include: Coronary artery disease with stent, diabetes, GERD, hypertension, prostatitis, peripheral neuropathy, anxiety depression Social history: Denies alcohol. Lives alone. Former smoker. Family history: Reviewed, noncontributory to presentation Physical examination: VITAL SIGNS: 99, 90, 106, 18, 80/50, 96% room air GENERAL:, Sitting up in bed, awake EYES: Pupils equal. Conjunctiva normal. NECK: JVD not raised; masses not palpable. HEART: First and second heart sounds are normal; no edema. LUNGS:[ Respiratory rate normal; decreased breath sounds. ABDOMEN: Soft, nontender, liver spleen not palpable, no masses palpable. PSYCH: Answering questions MUSCULOSKELETAL: Dressing over the thigh and the left foot INVESTIGATIONS, reviewed in the clinical context: August 06: WBC 13.6 hemoglobin 8.9 platelets 506 potassium 3.9 creatinine 0.5 for August 04: WBC 14.7 hemoglobin 9 potassium 3.7 creatinine 0.5 for blood glucose 62 August 03: Potassium 3.2 creatinine 0.51 August 02: WBC 12.8 hemoglobin 9.8 potassium 3.3 creatinine 0.54 August 01: WBC 18.1 hemoglobin 10.5 platelets 483 July 31: WBC 13.8 hemoglobin 11 platelets 437 potassium 3.7 creatinine 0.55 2-D echo: EF 55% no wall motion abnormality. WBC 17.7 hemoglobin 11.5 potassium 3.3 creatinine 0.64 WBC 16.8 hemoglobin 12.2 platelets 453 sodium 1:30 potassium 5.1 creatinine 0.67 Glucose 614 lactic acid 3.4 Serum acetone negative Coronavirus [PCR: Not detected Doppler ultrasound of left lower extremity: Negative for DVT Assessment and plan: -Acute on chronic left foot wounds present on the toes and left heel secondary to poor circulation/peripheral arterial disease. Possible secondary infection with possible sepsis. Cultures positive for MSSA. -Superficial femoral artery bilateral occlusive disease IV fluids. Vancomycin - discontinued. IV Unasyn. Change to IV Ancef August 01: Left femoral to peroneal in situ vein bypass graft. #2: Debridement of left heel, first metatarsal head area as well as the second and third toes of left foot Now pending left foot wound debridement -Significant peripheral arterial disease aspirin, Lipitor. Status post surgery . Add xarelto 2.5 mg twice daily with aspirin as better outcomes / literature -Coronary artery disease with stent.-Stable aspirin. Lipitor -Diabetic peripheral neuropathy -Diabetes mellitus type 2, chronically on insulin-uncontrolled with hyperglycemia and hypoglycemia Uncontrolled with diabetic nonketotic hyperosmolar hyperglycemia-corrected IV fluids. Follow Accu-Cheks -GERD Pepcid -Lactic acidosis possibly combination of sepsis and type II-improved IV fluids, antibiotics -Acute metabolic encephalopathy multifactorial-likely contribution from infection.-Improved Continue with IV fluids antibiotics -Normocytic anemia of chronic disease Follow H&H -Post procedure delirium-improved Multifactorial -Hypotension-improving Status post IV fluids. Increase midodrine to 5 mg 3 times a day -Mild hyponatremia Decrease IV fluids. Increase food intake Insulin dose adjusted. IV Ancef. Awaiting debridement of the left foot wound by vascular surgery
[2020-08-06 20:37] LABS: Glucose,Whole Blood 150 mg/dL (75-99)
[2020-08-06] MEDS: INSULIN DETEMIR (LEVEMIR) 100 UNIT/ML SYR SQ SCH (21:07)
--- NOTE | 2020-08-06 23:08 | PN ---
PROGRESS NOTE DATE OF SERVICE: 08/06/2020. REASON FOR FOLLOW: Left foot infection. INTERVAL HISTORY: Patient is afebrile. The patient is breathing comfortably. The patient denies having any chest pain, shortness of breath or cough. No nausea, vomiting. No abdominal pain. No worsening pain to the left foot. PHYSICAL EXAMINATION: Blood pressure is 91/52 with a pulse of 80, temperature 99. He is 95% on room air. The patient is an elderly male lying in bed in no distress. Respiratory system: Unlabored breathing, is clear to auscultation anteriorly. Heart S1, S2. Regular rate and rhythm. Abdomen soft, no tenderness. Left foot is currently dressed up. No obvious drainage on the dressing. LABS: Hemoglobin 8.4, white count 13.7, BUN of 9, creatinine 0.54. culture has been negative. DIAGNOSTIC IMPRESSION AND PLAN: Patient with left foot wound with secondary cellulitis. Culture with MSSA and culture negative. Patient is covered with cefazolin. Finish therapy with oral Keflex and close outpatient followup. MMODL / IJN: [id number] /
[2020-08-07] MEDS: MIDODRINE 5 MG TAB PO SCH ×3 (06:28→17:35)
[2020-08-07 06:57] LABS: Glucose,Whole Blood 114 mg/dL (75-99)
[2020-08-07] MEDS: ASPIRIN 81 MG PO SCH (08:50)
[2020-08-07] MEDS: INSULIN ASPART (NovoLOG) 100 UNIT/ML VIAL SQ SCH ×7 (08:50→21:16)
[2020-08-07] MEDS: RIVAROXABAN 2.5 MG TABLET PO SCH (08:50)
[2020-08-07] MEDS: FAMOTIDINE 20 MG TAB PO SCH ×2 (08:50→21:16)
[2020-08-07 10:27] LABS: HCT 27.9 % (39.0-53.0); HGB 9.2 gm/dL (13.0-17.5); Hypochromasia Slight; MCH 29.9 pg (25.0-35.0); MCHC 32.9 g/dL (31.0-37.0); MCV 90.9 fL (80.0-100.0); Mean Platelet Volume 7.2; Platelet Count 582 k/uL (150-450); RBC 3.07 m/uL (4.30-5.90); RDW 13.8 % (11.5-15.5); WBC 13.2 k/uL (3.8-10.6)
--- NOTE | 2020-08-07 10:40 | P.PN ---
Subjective Progress Note Date: 08/07/20 Principal diagnosis: Left lower extremity critical limb ischemia Patient is seen and examined lying in bed. Physical therapy worked with patient yesterday was able to get him at the edge of the bed as well as standing for approximately 1 minute. Patient states he's not been up in the chair. States he does have some pain in his left lower extremity, does have some tenderness in the left groin. Patient has been afebrile, denies any acute changes through the night. A BB C is stable at 13.2, hemoglobin stable at 9.2. Objective - Vital Signs Vital signs: Vital Signs Temp 98.7 F 08/07/20 03:20 Pulse 98 08/07/20 08:00 Resp 18 08/07/20 08:00 BP 77/62 08/07/20 08:00 Pulse Ox 95 08/07/20 08:00 Intake & Output 08/06/20 08/07/20 08/07/20 18:59 06:59 18:59 Intake Total 740 180 Output Total 3325 Balance 740 -3325 180 Weight 82 kg 84.5 kg Intake: Oral 740 180 Output: Urine 3325 Other: Voiding Method Indwelling Catheter Indwelling Catheter Indwelling Catheter - Exam General appearance: The patient is alert, confused, in no acute distress. HET: Head is normocephalic and atraumatic. Pupils are equal and reactive. Oropharynx is clear without lesions. Neck: Supple without lymphadenopathy. Trachea midline. Extremities: Left lower extremity with bruising noted in the left groin wrapping around posterior aspect of thigh with hematoma in the right groin. Incisions well approximated, clean dry and intact. Left foot with dressing clean dry and intact. Multiphasic femoral, popliteal, posterior tibialis, and dorsalis pedis Doppler signal. Neurological: No focal deficits. Strength and sensation are grossly intact. - Labs CBC & Chem 7: 08/07/20 10:10 08/06/20 07:31 Labs: Abnormal Lab Results - Last 24 Hours (Table) 08/06/20 08/06/20 08/06/20 Range/Units 07:31 12:01 17:01 WBC (3.8-10.6) k/uL RBC (4.30-5.90) m/uL Hgb (13.0-17.5) gm/dL Hct (39.0-53.0) % Plt Count (150-450) k/uL Sodium 134 L (137-145) mmol/L Creatinine 0.54 L (0.66-1.25) mg/dL Glucose 160 H (74-99) mg/dL POC Glucose (mg/dL) 175 H 193 H (75-99) mg/dL 08/06/20 08/07/20 08/07/20 Range/Units 20:35 06:55 10:10 WBC 13.2 H (3.8-10.6) k/uL RBC 3.07 L (4.30-5.90) m/uL Hgb 9.2 L (13.0-17.5) gm/dL Hct 27.9 L (39.0-53.0) % Plt Count 582 H (150-450) k/uL Sodium (137-145) mmol/L Creatinine (0.66-1.25) mg/dL Glucose (74-99) mg/dL POC Glucose (mg/dL) 150 H 114 H (75-99) mg/dL Assessment and Plan Assessment: 1. Postop day #5 femoral to perineal in situ vein bypass graft on left 2. Left lower extremity critical limb ischemia Drea classification 5 3. Stable ischemic wound on the left foot 4. Urinary retention 5. Coronary artery disease with history of stenting 6. Type 2 diabetes with diabetic neuropathy Plan: 1. Continue with medical management 2. Discontinue Cymbalta for surgery 3. Consistent carbohydrate diet and nothing by mouth after midnight 4. Daily wet-to-dry dressing change to left foot wounds, Vaseline gauze between second and third toe 5. Patient will need further debridement, this is scheduled tentatively for , 08/08/[address] Webb 6. Appreciate recommendations from infectious disease 7. Physical therapy to work with patient 8. Offload pressure on left heel The impression and plan of care has been dictated as directed. Dr. Vegas I performed a history and examination of this patient, discussed the same with the dictator. I agree with the dictator's note ,documented as a scribe. Any additional findings or plans will be noted.
[2020-08-07 10:46] LABS: African American GFR (CKD) >90 (>60 ml/min/1.73 sqM); Anion Gap 8 mmol/L; Blood Urea Nitrogen 12 mg/dL (9-20); Calcium 8.5 mg/dL (8.4-10.2); Carbon Dioxide 27 mmol/L (22-30); Chloride 99 mmol/L (98-107); Glucose 276 mg/dL (74-99); Non-African American GFR(CKD) >90 (>60 ml/min/1.73 sqM); Potassium 4.7 mmol/L (3.5-5.1); Sodium 134 mmol/L (137-145)
[2020-08-07 12:17] LABS: Glucose,Whole Blood 192 mg/dL (75-99)
--- NOTE | 2020-08-07 16:30 | CDI ---
Documentation Clarification Form Date: 08/07/2020 04:03:22 PM From: Beatriz Hernández RN CCDS Admit Date: 07/25/2020 06:14:00 PM Patient Name: Joaquín Smith Visit Number: [id number] Discharge Date: ATTENTION: The Clinical Documentation Specialists (CDI) and [facility] Coding Staff appreciate your assistance in clarifying documentation. Please respond to the clarification below the line at the bottom and electronically sign. The CDI & [facility] Coding staff will review the response and follow-up if needed. Please note: Queries are made part of the Legal Health Record. If you have any questions, please contact the author of this message via ITS. Maldonado Sprague debridement is documented 08/01 Procedure note. Additional clarification regarding the procedure is requested. History/Risk Factors: 70-year-old male presents to the ED for evaluation of left leg and foot pain. Medical History: Arterial disease, wounds to toes, foot, and leg, Tobacco abuse and DM. ED Note 07/25 Clinical Indicators: Vascular Surgery Consult 07/26: Superficial femoral artery occlusive disease bilaterally. Ischemic rest pain left lower extremity, nonhealing wounds. Treatment: Debridement Left foot heel wound Covered with a thick eschar measuring 14 x 12 cm. Taken down with a scalpel. Wound at the first metatarsal head medially measured 2.5 x 1.5 cm. Taken down to healthy appearing tissue with a surgical scalpel. Both down to fat layer. Antibiotics: 07/25 Ampicillin Sodium/ Sulbactam Sodium 3gm IVPB x1; 07/25 Vancomycin 1,750mg IVPB x1; 07/26 Vancomycin 1,750mg IVPB Q12HR changed 07/27 to 1500mg changed 07/28 to 1,500mg Q8HR Discontinued 08/03; 08/04 Cefazolin 2gm IVPB Q8HR to current. Please clarify the type of procedure performed: [ ] Excisional debridement (the removal of necrotic, devitalized tissue or slough by means of cutting away of tissue) [ ] Non-excisional debridement (the removal of necrotic, devitalized tissue or slough by means of flushing, brushing, or washing. (Irrigation) [ ] Other; please specify [ ] Unable to determine Five elements required for accurate and compliant documentation of a debridement: Technique used (e.g., excisional, excised, cutting, brushing, jet lavage etc.) Instrument(s) used (e.g., scalpel, curette, etc.) Nature of the tissue removed (e.g., necrotic, devitalized tissues, non-viable tissue, etc.) Appearance and size of the wound (e.g., down to fresh bleeding tissue, 7cm x 10cm, etc.) Depth of the debridement* (e.g., skin, subcutaneous tissue, fascia, muscle, bone, etc.) Documented on the Procedure note 08/08 * Excisional debridement left heel wound measuring 10 x 7 cm, excisional debridement left metatarsal head wound measuring 2.5 x 3 cm, excisional debridement of second toe left foot measuring 3 cm in length and third toe left foot measuring 1 cm in length. * (Template Last Revised: April 2020) ROSETTA
[2020-08-07 17:05] LABS: Glucose,Whole Blood 229 mg/dL (75-99)
[2020-08-07] MEDS: TAMSULOSIN 0.4 MG CAP.ER.24H PO SCH (17:33)
--- NOTE | 2020-08-07 19:35 | PN ---
PROGRESS NOTE DATE OF SERVICE: 08/07/2020 REASON FOR FOLLOWUP: Left heel wound and left foot wound with secondary cellulitis. INTERVAL HISTORY: The patient is afebrile. The patient is breathing comfortably. Patient denies any chest pain or cough. No abdominal pain or worsening pain to the left foot area. PHYSICAL EXAMINATION: VITAL SIGNS: Blood pressure 102/63, pulse 83, temperature 98, he is 99% on 2 L nasal cannula. GENERAL DESCRIPTION: An elderly male lying in bed in no distress. RESPIRATORY SYSTEM: Unlabored breathing, decreased breath sounds in the bases, no wheezes. HEART: S1, S2. Regular rate and rhythm. ABDOMEN: Soft, no tenderness. EXTREMITIES: Left foot wound did have necrotic area with minimal redness, no drainage. LABS: Hemoglobin is 9.1, white count 13.2, BUN of 12, creatinine 0.57. DIAGNOSTIC IMPRESSION AND PLAN: Patient with left leg ischemia with wound that has necrosis and nonhealing with possible secondary cellulitis covered with cefazolin to continue while monitoring clinical course closely. Continue supportive care. MMODL / IJN: [id number] /
--- NOTE | 2020-08-07 19:50 | P.PN ---
Progress Note - Text Progress Note Date: 08/07/20 Chief Complaint: Left foot pain History of presenting complaint: This is a 70-year-old patient who follows with Dr. Fox. Patient lives by himself. Patient is of the left foot and is due for a bypass by Dr. Aponte of the vascular surgeon. He was admitted for cardiology clearance. Patient's left heel wound and told wounds have been progressively getting worse in terms of increasing pain and difficulty to walk. Patient's appetite is okay. Denies any fever and chills. Chronic stable medical conditions include diabetes mellitus requiring insulin, coronary artery disease, peripheral neuropathy osteoarthritis. Patient has known peripheral arterial disease. Admitted with acute and chronic left foot wounds, started on IV vancomycin and Unasyn. Acute nonketotic hyperosmolar hyperglycemia-put on IV fluids. Lactic acidosis. Acute metabolic encephalopathy multifactorial including infection. Being followed by vascular surgery and infectious disease. August 01: #1: Left femoral to peroneal in situ vein bypass graft. #2: Debridement of left heel, first metatarsal head area as well as the second and third toes of left foot . Blood pressure running low. Midodrine added Today: Sitting up in bed. Eating well. Left foot pain. Pending debridement Review of systems: Was done for constitutional, cardiovascular, GI, pulmonary. relevant finding as above Active Medications Acetaminophen (Acetaminophen Tab 325 Mg Tab) 650 mg PO Q4HR PRN PRN Reason: Fever and/ or Pain Last Admin: 08/06/20 19:53 Dose: 650 mg Documented by: Hydrocodone Bitart/Acetaminophen (Hydrocodone/Apap 10-325mg 1 Each Tab) 1 each PO Q6H PRN PRN Reason: Pain Last Admin: 08/02/20 14:43 Dose: 1 each Documented by: Aspirin (Aspirin 81 Mg) 81 mg PO DAILY [facility] Last Admin: 08/07/20 08:50 Dose: 81 mg Documented by: Atorvastatin Calcium (Atorvastatin 40 Mg Tab) 40 mg PO HS [facility] Last Admin: 08/06/20 19:53 Dose: 40 mg Documented by: Famotidine (Famotidine 20 Mg Tab) 20 mg PO BID [facility] Last Admin: 08/07/20 08:50 Dose: 20 mg Documented by: Hydromorphone HCl (Hydromorphone 1 Mg/Ml 1 Ml Syringe) 1 mg IVP Q3HR PRN PRN Reason: Severe Pain Last Admin: 07/31/20 20:40 Dose: 1 mg Documented by: Cefazolin Sodium 2 gm/ Sodium (Chloride) 50 mls @ 100 mls/hr IVPB Q8HR [facility] Last Admin: 08/07/20 15:42 Dose: 100 mls/hr Documented by: Insulin Aspart (Insulin Aspart (Novolog) 100 Unit/Ml Vial) 0 unit SQ ACHS [facility]; Protocol Last Admin: 08/07/20 17:32 Dose: 3 unit Documented by: Insulin Aspart (Insulin Aspart (Novolog) 100 Unit/Ml Vial) 7 unit SQ AC-TID [facility] Last Admin: 08/07/20 17:32 Dose: 7 unit Documented by: Insulin Detemir (Insulin Detemir (Levemir) 100 Unit/Ml Syr) 28 unit SQ HS [facility] Last Admin: 08/06/20 21:07 Dose: 28 unit Documented by: Lorazepam (Lorazepam 2 Mg/Ml Inj) 1 mg IV Q8HR PRN PRN Reason: Agitation Last Admin: 08/03/20 22:40 Dose: 1 mg Documented by: Midodrine (Midodrine 5 Mg Tab) 5 mg PO AC-TID [facility] Last Admin: 08/07/20 17:35 Dose: 5 mg Documented by: Naloxone HCl (Naloxone 0.4 Mg/Ml 1 Ml Vial) 0.2 mg IV Q2M PRN PRN Reason: Opioid Reversal Quetiapine Fumarate (Quetiapine 25 Mg Tab) 25 mg PO BID PRN PRN Reason: Agitation or Acute Psychosis Last Admin: 08/06/20 19:54 Dose: 25 mg Documented by: Tamsulosin HCl (Tamsulosin 0.4 Mg Cap.Er.24h) 0.4 mg PO PC-SUPPER [facility] Last Admin: 08/07/20 17:33 Dose: 0.4 mg Documented by: Past medical history to include: Coronary artery disease with stent, diabetes, GERD, hypertension, prostatitis, peripheral neuropathy, anxiety depression Social history: Denies alcohol. Lives alone. Former smoker. Family history: Reviewed, noncontributory to presentation Physical examination: VITAL SIGNS: 98.7, 91, 16, 88/56, 97% room air GENERAL:, Sitting up in bed, awake EYES: Pupils equal. Conjunctiva normal. NECK: JVD not raised; masses not palpable. HEART: First and second heart sounds are normal; no edema. LUNGS:[ Respiratory rate normal; decreased breath sounds. ABDOMEN: Soft, nontender, liver spleen not palpable, no masses palpable. PSYCH: Answering questions MUSCULOSKELETAL: Dressing over the thigh and the left foot INVESTIGATIONS, reviewed in the clinical context: August 07: WBC 13.2 hemoglobin 9.2 potassium 4.7 creatinine 0.57 August 06: WBC 13.6 hemoglobin 8.9 platelets 506 potassium 3.9 creatinine 0.5 for Gaby 6: WBC 14.7 hemoglobin 9 potassium 3.7 creatinine 0.5 for blood glucose 62 August 03: Potassium 3.2 creatinine 0.51 August 02: WBC 12.8 hemoglobin 9.8 potassium 3.3 creatinine 0.54 August 01: WBC 18.1 hemoglobin 10.5 platelets 483 July 31: WBC 13.8 hemoglobin 11 platelets 437 potassium 3.7 creatinine 0.55 2-D echo: EF 55% no wall motion abnormality. WBC 17.7 hemoglobin 11.5 potassium 3.3 creatinine 0.64 WBC 16.8 hemoglobin 12.2 platelets 453 sodium 1:30 potassium 5.1 creatinine 0.67 Glucose 614 lactic acid 3.4 Serum acetone negative Coronavirus [PCR: Not detected Doppler ultrasound of left lower extremity: Negative for DVT Assessment and plan: -Acute on chronic left foot wounds present on the toes and left heel secondary to poor circulation/peripheral arterial disease. Possible secondary infection with possible sepsis. Cultures positive for MSSA. -Superficial femoral artery bilateral occlusive disease IV fluids. Vancomycin - discontinued. IV Unasyn. Change to IV Ancef August 01: Left femoral to peroneal in situ vein bypass graft. #2: Debridement of left heel, first metatarsal head area as well as the second and third toes of left foot Now pending left foot wound debridement -Significant peripheral arterial disease aspirin, Lipitor. Status post surgery . Add xarelto 2.5 mg twice daily with aspirin as better outcomes / literature -Coronary artery disease with stent.-Stable aspirin. Lipitor -Diabetic peripheral neuropathy -Diabetes mellitus type 2, chronically on insulin-uncontrolled with hyperglycemia and hypoglycemia Uncontrolled with diabetic nonketotic hyperosmolar hyperglycemia-corrected IV fluids. Follow Accu-Cheks -GERD Pepcid -Lactic acidosis possibly combination of sepsis and type II-improved IV fluids, antibiotics -Acute metabolic encephalopathy multifactorial-likely contribution from infection.-Improved Continue with IV fluids antibiotics -Normocytic anemia of chronic disease Follow H&H -Post procedure delirium-improved Multifactorial -Hypotension- Status post IV fluids. midodrine 5 mg 3 times a day -Mild hyponatremia Decrease IV fluids. Increase food intake Continue current medications. IV Ancef. Awaiting debridement of the left foot by Dr. Weinstein on August 08
[2020-08-07 20:49] LABS: Glucose,Whole Blood 206 mg/dL (75-99)
[2020-08-07] MEDS: INSULIN DETEMIR (LEVEMIR) 100 UNIT/ML SYR SQ SCH (21:16)
[2020-08-07] MEDS: ATORVASTATIN 40 MG TAB PO SCH (21:16)
[2020-08-07] MEDS: HYDROcodone/APAP 10-325MG 1 EACH TAB PO PRN (23:23)
[2020-08-08 06:36] LABS: Glucose,Whole Blood 184 mg/dL (75-99)
[2020-08-08] MEDS: MIDODRINE 5 MG TAB PO SCH ×3 (07:33→18:47)
[2020-08-08] MEDS: INSULIN ASPART (NovoLOG) 100 UNIT/ML VIAL SQ SCH ×7 (07:33→21:01)
[2020-08-08] MEDS: ASPIRIN 81 MG PO SCH (08:31)
[2020-08-08] MEDS: FAMOTIDINE 20 MG TAB PO SCH ×2 (08:31→21:01)
[2020-08-08 09:03] LABS: Glucose,Whole Blood 132 mg/dL (75-99)
[2020-08-08 09:49] LABS: Glucose,Whole Blood 128 mg/dL (75-99)
[2020-08-08] MEDS ORDERED: IV FLUID CONTINUATION 350 ML IV ONE (09:52)
[2020-08-08] MEDS ORDERED: fentaNYL (PF) 50 MCG/ML 2 ML AMP ONE (09:57)
[2020-08-08] MEDS ORDERED: GLYCOPYRROLATE 0.2 MG/ML 2 ML VIAL ONE (09:57)
[2020-08-08] MEDS ORDERED: KETAMINE 10 MG/ML 20 ML VIAL ONE (09:57)
[2020-08-08] MEDS ORDERED: ePHEDrine SULFATE/0.9% NACL/PF 50 MG/5 ML SYRINGE IV ONE (09:57)
[2020-08-08] MEDS ORDERED: PHENYLEPHRINE-0.9% NACL SYG 1,000 MCG/10 ML SYRINGE ONE (09:57)
[2020-08-08] MEDS ORDERED: PROPOFOL 10 MG/ML 20 ML VIAL IV ONE (09:57)
[2020-08-08] MEDS ORDERED: MIDAZOLAM 2 MG/2 ML VIAL ONE (09:57)
[2020-08-08] MEDS ORDERED: LACTATED RINGERS 1,000 ML IV ONE (10:34)
--- NOTE | 2020-08-08 11:25 | P.OP ---
Date of Procedure: 08/08/20 Preoperative Diagnosis: Ischemic ulcers left foot/toes. Postoperative Diagnosis: Same. Procedure(s) Performed: Excisional debridement left heel wound measuring 10 x 7 cm, excisional debridement left metatarsal head wound measuring 2.5 x 3 cm, excisional de bridement of second toe left foot measuring 3 cm in length and third toe left foot measuring 1 cm in length. Application of negative pressure wound VAC therapy greater than 50 cm. Implants: None. Anesthesia: MAC Surgeon: Maldonado Webb Estimated Blood Loss (ml): 5 Pathology: none sent Condition: stable Disposition: no change Indications for Procedure: Patient is a 70-year-old male with a long history of severe peripheral vascular disease who had presented with ischemic ulcerations of his left foot area he had 7 days prior undergone a left femoral to peroneal in situ vein bypass graft. T his resulted in markedly improved perfusion of the left lower extremity and foot. The patient has wounds of the foot which are are in need of debridement. The procedure, risk and benefits were reviewed. Patient and power of assistant county attorney agreed to proceed. Description of Procedure: Patient was brought to the operating room and placed in the left lateral decubitus position with the aid of a beanbag. The patient's left lower extremity and foot were sterilely prepped and draped in usual manner. There were 4 separate wounds of the foot area. There is a wound of the left heel measuring 10 cm x 7 cm. A second wound was was noted at the lateral aspect of the fifth metatarsal head measuring 2.5 x 3 cm. Additionally gangrenous change was noted of the second third toe of left foot. The second toe ischemic change measured 3 cm in length and the third toe ischemic change measured 1 cm in length. Utilizing a surgical scalpel the wound of the left heel and the metatarsal head were sharply to prided/excisionally debrided of eschar down to fat layer. Good bleeding properties were identified. The toes were divided sharply as best as possible. A wound VAC was then applied to to the left heel area and good to negative pressure was obtained. Saline moistened gauze was applied to the remaining wounds. Appropriate dressings were applied. Patient tolerated procedure well and was taken to the recovery area satisfactory and stable condition.
[2020-08-08 11:41] LABS: Glucose,Whole Blood 93 mg/dL (75-99)
--- NOTE | 2020-08-08 15:47 | P.PN ---
Progress Note - Text Progress Note Date: 08/08/20 Chief Complaint: Left foot pain History of presenting complaint: This is a 70-year-old patient who follows with Dr. Fox. Patient lives by himself. Patient is of the left foot and is due for a bypass by Dr. Aponte of the vascular surgeon. He was admitted for cardiology clearance. Patient's left heel wound and told wounds have been progressively getting worse in terms of increasing pain and difficulty to walk. Patient's appetite is okay. Denies any fever and chills. Chronic stable medical conditions include diabetes mellitus requiring insulin, coronary artery disease, peripheral neuropathy osteoarthritis. Patient has known peripheral arterial disease. Admitted with acute and chronic left foot wounds, started on IV vancomycin and Unasyn. Acute nonketotic hyperosmolar hyperglycemia-put on IV fluids. Lactic acidosis. Acute metabolic encephalopathy multifactorial including infection. Being followed by vascular surgery and infectious disease. August 01: #1: Left femoral to peroneal in situ vein bypass graft. #2: Debridement of left heel, first metatarsal head area as well as the second and third toes of left foot . Blood pressure running low. Midodrine added. Left foot wounds getting worse. Today: Patient today underwent debridement of the left foot multiple wounds including the heel. By Dr. Weinstein. Wound VAC is noted. Tolerating diet. Review of systems: Was done for constitutional, cardiovascular, GI, pulmonary. relevant finding as above Active Medications Acetaminophen (Acetaminophen Tab 325 Mg Tab) 650 mg PO Q4HR PRN PRN Reason: Fever and/ or Pain Last Admin: 08/06/20 19:53 Dose: 650 mg Documented by: Hydrocodone Bitart/Acetaminophen (Hydrocodone/Apap 10-325mg 1 Each Tab) 1 each PO Q6H PRN PRN Reason: Pain Last Admin: 08/07/20 23:23 Dose: 1 each Documented by: Aspirin (Aspirin 81 Mg) 81 mg PO DAILY [facility] Last Admin: 08/08/20 08:31 Dose: 81 mg Documented by: Atorvastatin Calcium (Atorvastatin 40 Mg Tab) 40 mg PO HS [facility] Last Admin: 08/07/20 21:16 Dose: 40 mg Documented by: Famotidine (Famotidine 20 Mg Tab) 20 mg PO BID [facility] Last Admin: 08/08/20 08:31 Dose: 20 mg Documented by: Hydromorphone HCl (Hydromorphone 1 Mg/Ml 1 Ml Syringe) 1 mg IVP Q3HR PRN PRN Reason: Severe Pain Last Admin: 07/31/20 20:40 Dose: 1 mg Documented by: Cefazolin Sodium 2 gm/ Sodium (Chloride) 50 mls @ 100 mls/hr IVPB Q8HR [facility] Last Admin: 08/08/20 08:31 Dose: 100 mls/hr Documented by: Insulin Aspart (Insulin Aspart (Novolog) 100 Unit/Ml Vial) 0 unit SQ ACHS [facility]; Protocol Last Admin: 08/08/20 15:30 Dose: Not Given Documented by: Insulin Aspart (Insulin Aspart (Novolog) 100 Unit/Ml Vial) 7 unit SQ AC-TID [facility] Last Admin: 08/08/20 15:30 Dose: Not Given Documented by: Insulin Detemir (Insulin Detemir (Levemir) 100 Unit/Ml Syr) 28 unit SQ HS [facility] Last Admin: 08/07/20 21:16 Dose: 28 unit Documented by: Lorazepam (Lorazepam 2 Mg/Ml Inj) 1 mg IV Q8HR PRN PRN Reason: Agitation Last Admin: 08/03/20 22:40 Dose: 1 mg Documented by: Midodrine (Midodrine 5 Mg Tab) 5 mg PO AC-TID [facility] Last Admin: 08/08/20 07:33 Dose: 5 mg Documented by: Naloxone HCl (Naloxone 0.4 Mg/Ml 1 Ml Vial) 0.2 mg IV Q2M PRN PRN Reason: Opioid Reversal Quetiapine Fumarate (Quetiapine 25 Mg Tab) 25 mg PO BID PRN PRN Reason: Agitation or Acute Psychosis Last Admin: 08/06/20 19:54 Dose: 25 mg Documented by: Tamsulosin HCl (Tamsulosin 0.4 Mg Cap.Er.24h) 0.4 mg PO PC-SUPPER [facility] Last Admin: 08/07/20 17:33 Dose: 0.4 mg Documented by: Past medical history to include: Coronary artery disease with stent, diabetes, GERD, hypertension, prostatitis, peripheral neuropathy, anxiety depression Social history: Denies alcohol. Lives alone. Former smoker. Family history: Reviewed, noncontributory to presentation Physical examination: VITAL SIGNS: 96.8, 92, 16, 95/51, 98% room air GENERAL:, Sitting up in bed, eating EYES: Pupils equal. Conjunctiva normal. NECK: JVD not raised; masses not palpable. HEART: First and second heart sounds are normal; no edema. LUNGS:[ Respiratory rate normal; decreased breath sounds. ABDOMEN: Soft, nontender, liver spleen not palpable, no masses palpable. PSYCH: Answering questions MUSCULOSKELETAL: Dressing over the thigh , wearing boots INVESTIGATIONS, reviewed in the clinical context: August 07: WBC 13.2 hemoglobin 9.2 potassium 4.7 creatinine 0.57 August 06: WBC 13.6 hemoglobin 8.9 platelets 506 potassium 3.9 creatinine 0.5 for Gaby 6: WBC 14.7 hemoglobin 9 potassium 3.7 creatinine 0.5 for blood glucose 62 August 03: Potassium 3.2 creatinine 0.51 August 02: WBC 12.8 hemoglobin 9.8 potassium 3.3 creatinine 0.54 August 01: WBC 18.1 hemoglobin 10.5 platelets 483 July 31: WBC 13.8 hemoglobin 11 platelets 437 potassium 3.7 creatinine 0.55 2-D echo: EF 55% no wall motion abnormality. WBC 17.7 hemoglobin 11.5 potassium 3.3 creatinine 0.64 WBC 16.8 hemoglobin 12.2 platelets 453 sodium 1:30 potassium 5.1 creatinine 0.67 Glucose 614 lactic acid 3.4 Serum acetone negative Coronavirus [PCR: Not detected Doppler ultrasound of left lower extremity: Negative for DVT Assessment and plan: -Acute on chronic left foot wounds present on the toes and left heel secondary to poor circulation/peripheral arterial disease. Possible secondary infection with possible sepsis. Cultures positive for MSSA. -Superficial femoral artery bilateral occlusive disease IV fluids. Vancomycin - discontinued. IV Unasyn. Change to IV Ancef August 01: Left femoral to peroneal in situ vein bypass graft. #2: Debridement of left heel, first metatarsal head area as well as the second and third toes of left foot . August 08: Debridement of left foot multiple wounds including on the heel by Dr. Weinstein.-Wound VAC ordered -Significant peripheral arterial disease aspirin, Lipitor. Status post surgery . xarelto 2.5 mg twice daily with aspirin as better outcomes / literature -Coronary artery disease with stent.-Stable aspirin. Lipitor -Diabetic peripheral neuropathy -Diabetes mellitus type 2, chronically on insulin-uncontrolled with hyperglycemia and hypoglycemia Uncontrolled with diabetic nonketotic hyperosmolar hyperglycemia-corrected IV fluids. Follow Accu-Cheks -GERD Pepcid -Lactic acidosis possibly combination of sepsis and type II-improved IV fluids, antibiotics -Acute metabolic encephalopathy multifactorial-likely contribution from infection.-Improved Continue with IV fluids antibiotics -Normocytic anemia of chronic disease Follow H&H -Post procedure delirium-improved Multifactorial -Hypotension- Status post IV fluids. midodrine 5 mg 3 times a day -Mild hyponatremia Decrease IV fluids. Increase food intake Continue current medication treatment plan. Hopefully to be discharged when okay with vascular.
[2020-08-08] MEDS: TAMSULOSIN 0.4 MG CAP.ER.24H PO SCH (16:10)
[2020-08-08 16:47] LABS: Glucose,Whole Blood 185 mg/dL (75-99)
[2020-08-08 20:15] LABS: Glucose,Whole Blood 235 mg/dL (75-99)
[2020-08-08] MEDS: ATORVASTATIN 40 MG TAB PO SCH (21:01)
[2020-08-08] MEDS: INSULIN DETEMIR (LEVEMIR) 100 UNIT/ML SYR SQ SCH (21:01)
[2020-08-09 04:44] VITALS: RESP 20
[2020-08-09 06:24] LABS: Glucose,Whole Blood 189 mg/dL (75-99)
[2020-08-09] MEDS: MIDODRINE 5 MG TAB PO SCH ×2 (06:36→12:46)
[2020-08-09] MEDS: INSULIN ASPART (NovoLOG) 100 UNIT/ML VIAL SQ SCH ×4 (08:30→12:45)
[2020-08-09] MEDS: ASPIRIN 81 MG PO SCH (09:12)
[2020-08-09] MEDS: FAMOTIDINE 20 MG TAB PO SCH (09:12)
--- NOTE | 2020-08-09 09:48 | P.CONS ---
History of Present Illness - Reason for Consult Consult date: 08/09/20 wound care - History of Present Illness This is a 70-year-old patient being seen by the wound care center for nonhealing ulcerations to the left foot. Patient has for ulceration to the left foot one of the left heel that measures 10 x 7 width Slough and minimal granulation, lateral ulceration at the fifth metatarsal measuring 2.5 x 3, second digit ulceration 3 cm in the third digit ulceration at 1 cm. Surgical debridement was performed on the ulcerations per Dr. Weinstein. He applied a negative pressure wound VAC. The negative pressure wound VAC is in place at this time. Patient is tolerating the wound VAC without any difficulties. We will continue with the wound VAC and outpatient setting for wound treatment. Patient underwent a left femoral in situ bypass graft approximately 1 week ago. Patient has medical history significant for peripheral vascular disease, coronary artery disease, diabetes, hypertension, peripheral neuropathy, chronic pain. He is a former smoker. Review Of Systems: Constitutional: No fever, no chills, no night sweats. No weight change. No weakness, fatigue or lethargy. No daytime sleepiness. Integumentary:reports wounds, no lesions. No rash or pruritus. No unusual bruising. No change in hair or nails. Physical exam: General Appearance: Alert, cooperative, no distress, appears stated age. Skin: See HPI all other Skin color, texture, tugor normal, no rashes or lesions. Neurologic: Alert oriented x3 Assessment: 1. Pressure ulcer stage III left calcaneus 2. Nonhealing ulceration with muscle involvement without necrosis left lateral foot fifth digit 3. Nonhealing ulceration to second and third digit with fat layer exposure 4. Diabetic foot ulcer Assessment: 1. Continue with negative pressure wound VAC at 125 mmHg with black foam. Change Wednesday. Patient will be set up to be seen in the wound care center upon discharge. Thank you for the consultation any questions was contact the wound care center DNP note has been reviewed and discussed with Dr. Henderson and the impression and plan of care has been directed as dictated. Past Medical History Past Medical History: Coronary Artery Disease (CAD), Diabetes Mellitus, Eye Disorder, GERD/Reflux, Hypertension, Musculoskeletal Disorder, Osteoarthritis (OA) Additional Past Medical History / Comment(s): peripheral neuropathy,. spondilolithesis. disabled-moves slowly History of Any Multi-Drug Resistant Organisms: None Reported Past Surgical History: Heart Catheterization With Stent, Orthopedic Surgery, Tonsillectomy Additional Past Surgical History / Comment(s): lt knee surg. lt knee scope. [facility] PROCED[facility] Past Anesthesia/Blood Transfusion Reactions: No Reported Reaction Date of Last Stent Placement:: 2008 Past Psychological History: Anxiety, Depression Smoking Status: Former smoker Past Alcohol Use History: None Reported Past Drug Use History: None Reported - Past Family History Mother Family Medical History: Unable to Obtain Medications and Allergies Home Medications Medication Instructions Recorded Confirmed Type Insulin Glargine,Hum.rec.anlog 40 unit SQ BID 05/22/20 07/25/20 History [Lantus Solostar] INSULIN ASPART (NovoLOG) [NovoLOG 8 unit SQ AC-TID #1 vial 05/27/20 07/25/20 Rx (formulary)] Famotidine [Pepcid] 20 mg PO BID PRN 07/25/20 07/25/20 History Allergies Allergy/AdvReac Type Severity Reaction Status Date / Time No Known Allergies Allergy Verified 07/25/20 16:25 Physical Exam Vitals: Vital Signs Temp Pulse Resp BP Pulse Ox 08/09/20 04:00 98.0 F 90 20 89/58 92 L 08/09/20 01:49 84 18 08/09/20 00:00 84 18 92/54 92 L 08/08/20 20:00 97.8 F 81 16 86/51 96 08/08/20 16:00 86 16 88/57 97 08/08/20 14:00 92 16 08/08/20 12:01 92 16 94/59 98 08/08/20 11:47 88 16 86/57 100 08/08/20 11:31 90 16 95/51 100 08/08/20 11:24 96.8 F L 92 16 69/45 97 Intake and Output 08/08/20 08/09/20 08/09/20 22:59 06:59 14:59 Intake Total 120 600 Output Total 2000 500 Balance -2000 -380 600 Intake: Oral 120 600 Output: Urine 2000 500 Other: Voiding Method Indwelling Catheter Indwelling Catheter Weight 91.5 kg Results CBC & Chem 7: 08/07/20 10:10 08/07/20 10:10 Labs: Abnormal Lab Results - Last 24 Hours (Table) 08/08/20 08/08/20 08/08/20 Range/Units 09:46 16:45 20:12 POC Glucose (mg/dL) 128 H 185 H 235 H (75-99) mg/dL 08/09/20 Range/Units 06:22 POC Glucose (mg/dL) 189 H (75-99) mg/dL Assessment and Plan (1) Pressure ulcer of left heel, stage 3 Current Visit: Yes Status: Acute Code(s): L89.623 - PRESSURE ULCER OF LEFT HEEL, STAGE 3 SNOMED Code(s): 777377465 (2) Non-healing ulcer of left foot with fat layer exposed Current Visit: Yes Status: Acute Code(s): L97.522 - NON-PRS CHRONIC ULCER OTH PRT LEFT FOOT W FAT LAYER EXPOSED SNOMED Code(s): 811147319 (3) Nonhealing ulcer of multiple sites of left lower extremity with fat layer exposed Current Visit: Yes Status: Acute Code(s): L97.922 - NON-PRS CHR ULC UNSP PRT OF L LOW LEG W FAT LAYER EXPOSED SNOMED Code(s): 46196714 (4) Diabetic foot ulcer Current Visit: Yes Status: Acute Code(s): E11.621 - TYPE 2 DIABETES MELLITUS WITH FOOT ULCER; L97.509 - NON-PRESSURE CHRONIC ULCER OTH PRT UNSP FOOT W UNSP SEVERITY SNOMED Code(s): 249847903 (5) PVD (peripheral vascular disease) Current Visit: No Status: Acute Code(s): I73.9 - PERIPHERAL VASCULAR DISEASE, UNSPECIFIED SNOMED Code(s): 530918223
[2020-08-09 10:18] LABS: Basophils # (A) 0.1 k/uL (0-0.2); Basophils % (A) 0 %; Eosinophils # (A) 0.4 k/uL (0-0.7); Eosinophils % (A) 3 %; HCT 30.5 % (39.0-53.0); HGB 9.6 gm/dL (13.0-17.5); Hypochromasia Slight; Lymphocytes # (A) 1.6 k/uL (1.0-4.8); Lymphocytes % (A) 12 %; MCH 28.5 pg (25.0-35.0); MCHC 31.5 g/dL (31.0-37.0); MCV 90.3 fL (80.0-100.0); Mean Platelet Volume 7.4; Monocytes # (A) 0.5 k/uL (0-1.0); Monocytes % (A) 4 %; Neutrophils # (A) 11.1 k/uL (1.3-7.7); Neutrophils % (A) 80 %; Platelet Count 718 k/uL (150-450); RBC 3.37 m/uL (4.30-5.90); RDW 13.9 % (11.5-15.5); WBC 13.8 k/uL (3.8-10.6)
[2020-08-09 10:33] LABS: African American GFR (CKD) >90 (>60 ml/min/1.73 sqM); Anion Gap 9 mmol/L; Blood Urea Nitrogen 12 mg/dL (9-20); Calcium 8.6 mg/dL (8.4-10.2); Carbon Dioxide 26 mmol/L (22-30); Chloride 96 mmol/L (98-107); Glucose 247 mg/dL (74-99); Non-African American GFR(CKD) >90 (>60 ml/min/1.73 sqM); Potassium 4.8 mmol/L (3.5-5.1); Sodium 131 mmol/L (137-145)
[2020-08-09 12:13] LABS: Glucose,Whole Blood 230 mg/dL (75-99)
[2020-08-09 13:00] VITALS: BP 96/59; PULSE 65; TEMP 98.7
--- NOTE | 2020-08-09 14:00 | P.PN ---
Subjective Progress Note Date: 08/09/20 Principal diagnosis: Left lower extremity critical limb ischemia Patient is seen and examined lying in bed. States he does have some pain to his left lower extremity but has not had to take any pain medication. Yesterday he underwent debridement of the left foot and heel, he has a wound VAC on currently. Denies any fevers or chills, shortness of breath or chest pain. Objective - Vital Signs Vital signs: Vital Signs Temp 98.0 F 08/09/20 04:00 Pulse 90 08/09/20 04:00 Resp 20 08/09/20 04:00 BP 89/58 08/09/20 04:00 Pulse Ox 92 L 08/09/20 04:00 Intake & Output 08/08/20 08/09/20 08/09/20 18:59 06:59 18:59 Intake Total 1390 120 600 Output Total 5 2500 Balance 1385 -2380 600 Weight 91.5 kg Intake: IV 1150 Oral 240 120 600 Output: Urine 2500 Estimated Blood Loss 5 Other: Voiding Method Indwelling Catheter Indwelling Catheter - Exam General appearance: The patient is alert, confused, in no acute distress. HET: Head is normocephalic and atraumatic. Pupils are equal and reactive. Oropharynx is clear without lesions. Neck: Supple without lymphadenopathy. Trachea midline. Extremities: Left lower extremity bruising and hematoma in left groin improved. Incisions well approximated, clean dry and intact. Left foot with dressing clean dry and intact with wound vac in place to left heel. Neurological: No focal deficits. - Labs CBC & Chem 7: 08/09/20 08:59 08/09/20 08:59 Labs: Abnormal Lab Results - Last 24 Hours (Table) 08/08/20 08/08/20 08/08/20 Range/Units 09:46 16:45 20:12 POC Glucose (mg/dL) 128 H 185 H 235 H (75-99) mg/dL 08/09/20 Range/Units 06:22 POC Glucose (mg/dL) 189 H (75-99) mg/dL Assessment and Plan Assessment: 1. Postop day #1 for left foot wound debridement with placement of wound VAC to left heel 2. Post femoral to perineal in situ vein bypass graft on left 3. Left lower extremity critical limb ischemia [place] classification 5 4. Stable ischemic wound on the left foot 5. Urinary retention 6. Coronary artery disease with history of stenting 7. Type 2 diabetes with diabetic neuropathy Plan: 1. Continue with medical management 2. May resume Xarelto 3. Consistent carbohydrate diet 4. Continue wound VAC, change 3 days a week 5. Wound care consult that, patient will need outpatient follow-up with wound care clinic 6. Physical therapy to work with patient 7. Offload pressure on left heel 8. Patient may be discharged home from a vascular surgical standpoint, will need follow-up in 1-[address] Weinstein The impression and plan of care has been dictated as directed. Dr. Webb I performed a history and examination of this patient, discussed the same with the dictator. I agree with the dictator's note ,documented as a scribe. Any additional findings or plans will be noted.
--- NOTE | 2020-08-09 14:18 | P.DS ---
Providers Date of admission: 07/25/20 18:14 Expected date of discharge: 08/09/20 Attending physician: Evelyne Vegas DO Consults: 07/25/20 16:00 Consult Physician Routine Consulting Provider: Robinson Alamo Consult Reason/Comments: cardiac clearance for lower extremity revascularization Do you want consulting provider notified?: Yes 07/25/20 16:17 Consult Physician Routine Consulting Provider: Maldonado Webb Consult Reason/Comments: Left foot wounds; leg pain Do you want consulting provider notified?: Yes 07/25/20 16:18 Consult Physician Routine Consulting Provider: Nelson Powers Consult Reason/Comments: Left foot wounds; Sepsis Do you want consulting provider notified?: Yes 07/25/20 22:25 Consult Physician Stat Consulting Provider: William Farris Consult Reason/Comments: Confusion Do you want consulting provider notified?: Already Contacted Primary care physician: [facility] Hospital Course: Chief Complaint: Left foot pain History of presenting complaint: This is a 70-year-old patient who follows with Dr. Fox. lives by himself. wound of left foot and is due for a bypass by Dr. Weinstein / vascular surgeon. He was admitted for cardiology clearance. Patient's left heel wound and toe wounds have been progressively getting worse in terms of increasing pain and difficulty to walk. Patient's appetite is okay. Denies any fever and chills. Chronic stable medical conditions include diabetes mellitus requiring insulin, coronary artery disease, peripheral neuropathy osteoarthritis. known peripheral arterial disease. Admitted with acute on chronic left foot wounds, started on IV vancomycin and Unasyn. Acute nonketotic hyperosmolar hyperglycemia-put on IV fluids. Lactic acidosis. Acute metabolic encephalopathy multifactorial including infection- that eventually improved. . August 01: #1: Left femoral to peroneal in situ vein bypass graft. #2: Debridement of left heel, first metatarsal head area as well as the second and third toes of left foot . Blood pressure running low. Midodrine added. Left foot wounds getting worse. August 08 underwent debridement of the left foot multiple wounds including the heel. By Dr. Weinstein. Wound VAC placed Tolerating diet. Today: Sitting up in bed. Pain control. Cleared by ID and vascular for discharge. Note that patient's blood pressure often runs in the 70s systolic.- with the midodrine. That is acceptable for him. Patient will follow-up with vascular and the wound care center. Discussion and discharge planning more than 35 minutes Past medical history to include: Coronary artery disease with stent, diabetes, GERD, hypertension, prostatitis, peripheral neuropathy, anxiety depression Social history: Denies alcohol. Lives alone. Former smoker. Family history: Reviewed, noncontributory to presentation Physical examination: VITAL SIGNS: 98.7, 65, 20, 96 x 59, 96% room air GENERAL:, Sitting up in bed, awake EYES: Pupils equal. Conjunctiva normal. NECK: JVD not raised; masses not palpable. HEART: First and second heart sounds are normal; no edema. LUNGS:[ Respiratory rate normal; decreased breath sounds. ABDOMEN: Soft, nontender, liver spleen not palpable, no masses palpable. PSYCH: Answering questions MUSCULOSKELETAL: Dressing over the thigh , wearing boots. Wound VAC on the left foot INVESTIGATIONS, reviewed in the clinical context: August 09: WBC 13.8 hemoglobin 9.6 platelets 718 potassium 4.8 creatinine 0.62 Accu-Cheks 230 July 31: WBC 13.8 hemoglobin 11 platelets 437 potassium 3.7 creatinine 0.55 2-D echo: EF 55% no wall motion abnormality. WBC 17.7 hemoglobin 11.5 potassium 3.3 creatinine 0.64 WBC 16.8 hemoglobin 12.2 platelets 453 sodium 1:30 potassium 5.1 creatinine 0.67 Glucose 614 lactic acid 3.4 Serum acetone negative Coronavirus [PCR: Not detected Doppler ultrasound of left lower extremity: Negative for DVT Assessment and plan: -Acute on chronic left foot wounds present on the toes and left heel secondary to poor circulation/peripheral arterial disease. Secondary infection sepsis., From [facility]. -Superficial femoral artery bilateral occlusive disease IV fluids. Vancomycin - discontinued. IV Unasyn. Change to IV Ancef August 01: Left femoral to peroneal in situ vein bypass graft. #2: Debridement of left heel, first metatarsal head area as well as the second and third toes of left foot . August 08: Debridement of left foot multiple wounds including on the heel by Dr. Weinstein.-Wound VAC placed. 2 more weeks of oral Keflex -Significant peripheral arterial disease aspirin, Lipitor. Status post surgery . xarelto 2.5 mg twice daily with aspirin as better outcomes / literature -Coronary artery disease with stent.-Stable aspirin. Lipitor -Diabetic peripheral neuropathy -Diabetes mellitus type 2, chronically on insulin-uncontrolled with hyperglycemia and hypoglycemia Uncontrolled with diabetic nonketotic hyperosmolar hyperglycemia-corrected IV fluids. Follow Accu-Cheks -GERD Pepcid -Lactic acidosis possibly combination of sepsis and type II-improved IV fluids, antibiotics -Acute metabolic encephalopathy multifactorial-likely contribution from infection.-Improved IV fluids antibiotics -Normocytic anemia of chronic disease Follow H&H -Post procedure delirium-improved Multifactorial -Hypotension- Status post IV fluids. midodrine 5 mg 3 times a day. Patient is stable with systolic blood pressure in the 70s often. -Mild hyponatremia Decrease IV fluids. Increase food intake Disposition: [facility] Plan - Discharge Summary Discharge Rx Participant: No New Discharge Prescriptions: New HYDROcodone/APAP 10-325MG [Frit[place] 10-325] 1 each PO Q6H PRN 3 Days #12 tab PRN Reason: Pain Aspirin 81 mg PO DAILY chew Midodrine [ProAmatine] 5 mg PO AC-TID tab Acetaminophen Tab [Tylenol] 650 mg PO Q4HR PRN tab PRN Reason: Fever And/ Or Pain INSULIN ASPART (NovoLOG) [NovoLOG (formulary)] 0 unit SQ ACHS vial Cephalexin [Keflex] 500 mg PO Q6HR #56 cap Tamsulosin [Flomax] 0.4 mg PO PC-SUPPER cap.er.24h Atorvastatin [Lipitor] 40 mg PO HS tab Continue Famotidine [Pepcid] 20 mg PO BID PRN PRN Reason: Heartburn INSULIN ASPART (NovoLOG) [NovoLOG (formulary)] 8 unit SQ AC-TID #1 vial Changed Insulin Glargine,Hum.rec.anlog [Lantus Solostar] 30 unit SQ HS #0 Discharge Medication List INSULIN ASPART (NovoLOG) [NovoLOG (formulary)] 8 unit SQ AC-TID #1 vial 05/27/20 [Rx] Famotidine [Pepcid] 20 mg PO BID PRN 07/25/20 [History] Acetaminophen Tab [Tylenol] 650 mg PO Q4HR PRN tab 08/09/20 [Rx] Aspirin 81 mg PO DAILY chew 08/09/20 [Rx] Atorvastatin [Lipitor] 40 mg PO HS tab 08/09/20 [Rx] Cephalexin [Keflex] 500 mg PO Q6HR #56 cap 08/09/20 [Rx] HYDROcodone/APAP 10-325MG [[place]ritch 10-325] 1 each PO Q6H PRN 3 Days #12 tab 08/09/20 [Rx] INSULIN ASPART (NovoLOG) [NovoLOG (formulary)] 0 unit SQ ACHS vial 08/09/20 [Rx] Insulin Glargine,Hum.rec.anlog [Lantus Solostar] 30 unit SQ HS #0 08/09/20 [Rx] Midodrine [ProAmatine] 5 mg PO AC-TID tab 08/09/20 [Rx] Tamsulosin [Flomax] 0.4 mg PO PC-SUPPER cap.er.24h 08/09/20 [Rx] Follow up Appointment(s)/Referral(s): Nikos Fox DO [Primary Care Provider] - 1-2 days Maldonado Webb DO [Doctor of Osteopathic Medicine] - 10 Days Wound Center[facility] [NON-STAFF] - 1 Week Activity/Diet/Wound Care/Special Instructions: wound care per ID/vascular
--- NOTE | 2020-08-09 19:47 | PN ---
PROGRESS NOTE DATE OF SERVICE: 08/09/2020 REASON FOR FOLLOWUP: Left foot wound ischemic with secondary cellulitis. INTERVAL HISTORY: The patient is currently afebrile. The patient had debridement of his wound yesterday, tolerated the procedure. The patient denies any chest pain. No shortness or cough. No abdominal pain or worsening pain to the left foot. PHYSICAL EXAMINATION: Blood pressure is 96/59 with pulse of 65, temperature 98.7. He is 96% on room air. General description is an elderly male lying in in no distress. Respiratory system: Unlabored breathing, clear to auscultation anteriorly. Heart S1, S2. Regular rate and rhythm. Abdomen soft, no tenderness. Left foot is currently dressed, no drainage on the dressing. DIAGNOSTIC IMPRESSION AND PLAN: Patient with multiple ischemic ulcerations with significant PAD status post revascularization and debridement of the wound. Patient at this time covered with cefazolin, switched to oral Keflex. If white count still elevated will add Flagyl. Local care to continue per wound care team and close outpatient followup. MMODL / IJN: [id number] /
[2020-08-09] MEDS ORDERED: RIVAROXABAN 2.5 MG TABLET PO SCH (21:00)
== END 2020-08-09 16:01 | DRG 853 ==
LOC: EC 13:49 → 3SCARD 18:14
PROVIDERS: ADMIT Surgery; ATTEND Surgery
PROC: 041 Lower Arteries, Bypass (ICD-10-PCS; principal; 2020-08-01 09:45)
PROC: 0JBR0ZZ Excision of Left Foot Subcutaneous Tissue and Fascia, Open Approach (ICD-10-PCS; 2020-08-01 09:45)
PROC: 0JBR0ZZ Excision of Left Foot Subcutaneous Tissue and Fascia, Open Approach (ICD-10-PCS; 2020-08-08)
DX: A41.9 Sepsis, unspecified organism (principal); L89.623 Pressure ulcer of left heel, stage 3; G93.41 Metabolic encephalopathy; E87.2 Acidosis; E11.52 Type 2 diabetes mellitus with diabetic peripheral angiopathy with gangrene; L03.116 Cellulitis of left lower limb; E87.1 Hypo-osmolality and hyponatremia; I70.262 Atherosclerosis of native arteries of extremities with gangrene, left leg; I70.92 Chronic total occlusion of artery of the extremities; L98.495 Non-pressure chronic ulcer of skin of other sites with muscle involvement without evidence of necrosis; Z20.822 Contact with and (suspected) exposure to COVID-19; Z79.4 Long term (current) use of insulin; I25.10 Atherosclerotic heart disease of native coronary artery without angina pectoris; K21.9 Gastro-esophageal reflux disease without esophagitis; E11.42 Type 2 diabetes mellitus with diabetic polyneuropathy; M19.90 Unspecified osteoarthritis, unspecified site; Z87.891 Personal history of nicotine dependence; Z95.5 Presence of coronary angioplasty implant and graft; E11.65 Type 2 diabetes mellitus with hyperglycemia; E11.621 Type 2 diabetes mellitus with foot ulcer; D63.8 Anemia in other chronic diseases classified elsewhere; I95.9 Hypotension, unspecified; B95.61 Methicillin susceptible Staphylococcus aureus infection as the cause of diseases classified elsewhere; I10 Essential (primary) hypertension; R33.9 Retention of urine, unspecified; E78.5 Hyperlipidemia, unspecified; F41.8 Other specified anxiety disorders; M48.02 Spinal stenosis, cervical region; L97.522 Non-pressure chronic ulcer of other part of left foot with fat layer exposed; W19.XXXA Unspecified fall, initial encounter; Z79.899 Other long term (current) drug therapy; E11.649 Type 2 diabetes mellitus with hypoglycemia without coma
CPT/HCPCS: 36415; 70450; 71046; 72125; 80048; 80053; 80202; 82009; 82565; 83605; 85025; 85027; 86850; 86900; 86901; 87040; 87070; 87075; 87077; 87186; 87205; 87635; 93005; 93306; 94760; 95816; 96361; 96374; 96375; 99285